=== PATIENT | male | born 1975 | race Caucasian/White ===

== ENCOUNTER 2017-12-11 07:28 | Inpatient (IN) | payer MEDICAID ==
[2017-12-11] MEDS ORDERED: Sodium Chloride 0.9% 1,000 ML IV ONE ×2 (08:02→09:53)
[2017-12-11] MEDS ORDERED: Sodium Chloride 0.9% 1,000 ML ONE ×2 (08:18→09:55)
[2017-12-11 08:26] LABS: BASO # 0.1 K/uL (0.0-0.2); BASO % 2.1 % (0.0-2.0); EOS % 0.5 % (0.0-4.0); HEMOGLOBIN 8.3 g/dL (12.0-18.0); LYMPH % 22.7 % (20.0-40.0); MEAN CELL VOLUME 87.9 fL (80.0-94.0); MEAN CORPUSCULAR HEMOGLOBIN 30.6 pg (27.0-31.0); MEAN CORPUSCULAR HGB CONC 34.9 g/dL (33.0-37.0); MEAN PLATELET VOLUME 8.8 fL (7.2-11.7); MONO # 0.4 K/uL (0.0-0.8); MONO % 8.2 % (0.0-10.0); NEUT # 2.9 K/uL (1.8-7.0); NEUT % 66.5 % (50.0-75.0); NRBC % 0.1 % (0.0-2.0); RBC 2.7 Mil/uL (4.40-5.90); WHITE BLOOD COUNT 4.4 K/uL (4.8-10.8)
[2017-12-11 08:34] LABS: ALB/GLOB RATIO 0.7 (1.0-2.1); ALBUMIN 2.7 g/dL (3.5-5.0); ALT/SGPT 62 U/L (21-72); AST/SGOT 235 U/L (17-59); BLOOD UREA NITROGEN 11 mg/dL (9-20); CALCIUM 7.6 mg/dl (8.6-10.4); GFR AFRICAN-AMERICAN > 60; GFR NON-AFRICAN AMERICAN > 60; LIPASE 249 U/L (23-300)
[2017-12-11 08:35] LABS: INR 3.3
--- NOTE | 2017-12-11 09:04 | C.PDOC ---
History Of Present Illness 42 y/o male presents to ED for evaluation of 5 episodes of vomiting, notes having blood in his vomit. He also reports dark stool. Pt states he was recently admitted at [facility] for gallstones. Pt states he was instructed not to drink alcohol but admits to still drinking. Denies fever, chest pain, shortness of breath, or other complaints. Time Seen by Provider: 12/11/17 07:31 Chief Complaint (Nursing): GI Problem History Per: Patient History/Exam Limitations: no limitations Past Medical History Reviewed: Historical Data, Nursing Documentation, Vital Signs Vital Signs: Last Vital Signs Temp 97.9 F 12/11/17 13:24 Pulse 78 12/11/17 15:30 Resp 12 12/11/17 15:30 BP 101/58 L 12/11/17 15:30 Pulse Ox 99 12/11/17 15:30 Family History: States: Unknown Family Hx - Social History Hx Alcohol Use: Yes Hx Substance Use: No - Immunization History Hx Tetanus Toxoid Vaccination: No Hx Influenza Vaccination: Yes Hx Pneumococcal Vaccination: Yes Review Of Systems Except As Marked, All Systems Reviewed And Found Negative. Constitutional: Negative for: Fever, Chills Cardiovascular: Negative for: Chest Pain Respiratory: Negative for: Shortness of Breath Gastrointestinal: Positive for: Nausea, Vomiting, Melena, Hematemesis Physical Exam - Physical Exam Appears: Non-toxic, No Acute Distress Skin: Normal Color, Warm, Dry Head: Atraumatic, Normacephalic Eye(s): bilateral: Normal Inspection Oral Mucosa: Moist Throat: Normal Cardiovascular: Rhythm Regular Respiratory: Normal Breath Sounds, No Rales, No Rhonchi, No Wheezing Gastrointestinal/Abdominal: Soft, No Tenderness, No Guarding, No Rebound Rectal: Heme Positive, Other (brown stool) Extremity: Normal ROM Neurological/Psych: Oriented x3, Normal Speech Gait: Steady ED Course And Treatment - Laboratory Results Result Diagrams: 12/11/17 08:12 12/11/17 08:12 Lab Interpretation: Abnormal ECG: Interpreted By Me ECG Rhythm: Sinus Rhythm, Nonspecific Changes ECG Interpretation: No Acute Changes Rate From EC O2 Sat by Pulse Oximetry: 98 Pulse Ox Interpretation: Normal - Radiology CXR: Interpreted by Me CXR Interpretation: Yes: No Acute Disease Progress Note: Treated with IVF NSS x 2 liters and zofran. Protonic drip and bolus. Case discussed with Dr Landrum who agrees to admit. Case discussed with Dr Max Merlos (GI) who request ICU admission and ocreotide bolus and drip. Treated with additional zofran. Vomit moderate amounts of dark burgandy colored fluid. Partient evaluated by Dr Cortés and agrees to ICU admission Reassessment Condition: Unchanged - Physician Consult Information Physician Contacted: Gabriel Landrum Outcome Of Conversation: admit Medical Decision Making Medical Decision Making: Plan: Blood work Urinalysis Zofran, Protonix, IV fluids Disposition Discussed With Dr.: Gabriel Landrum Doctor Will See Patient In The: Hospital - Disposition Disposition: HOSPITALIZED Disposition Time: 11:00 Condition: GUARDED - POA Present On Arrival: None - Clinical Impression Clinical Impression: Gastrointestinal hemorrhage, Esophageal varices, Acute GI bleeding - PA / LITERARY WRITER / Resident Statement MD/DO has reviewed & agrees with the documentation as recorded. - Scribe Statement The provider has reviewed the documentation as recorded by the Scribe KP All medical record entries made by the Scribe were at my direction and personally dictated by me. I have reviewed the chart and agree that the record accurately reflects my personal performance of the history, physical exam, medical decision making, and the department course for this patient. I have also personally directed, reviewed, and agree with the discharge instructions and disposition. Decision To Admit - Pt Status Changed To: Hospital Disposition Of: Inpatient - Admit Certification Admit to Inpatient:: After my assessment, the patient will require hospitalization for at least two midnights. This is because of the severity of symptoms shown, intensity of services needed, and/or the medical risk in this patient being treated as an outpatient. - InPatient: Physician Admission Certification: I certify that this patient requires 2 or more midnights of care for the following reason:: Esophageal varicies. GI Bleeding - . Bed Request Type: ICU Admitting Physician: Gabriel Landrum Patient Diagnosis: Gastrointestinal hemorrhage, Esophageal varices, Acute GI bleeding
[2017-12-11] MEDS ORDERED: Pantoprazole 80 MG in Sodium Chloride 0.9% 100 ML IVP SCH (09:30)
[2017-12-11] MEDS: Pantoprazole 80 MG in Sodium Chloride 0.9% 100 ML IVPB SCH ×2 (09:40→18:00)
[2017-12-11 09:49] LABS: SQUAMOUS EPITHIAL 2 /hpf (0-5); URINE BILIRUBIN NEGATIVE (NEGATIVE); URINE BLOOD NEGATIVE (NEGATIVE); URINE CLARITY Clear (Clear); URINE COLOR Amber (YELLOW); URINE GLUCOSE (UA) NORMAL (Normal); URINE LEUKOCYTE ESTERASE NEG Leu/uL (Negative); URINE PROTEIN NEGATIVE (NEGATIVE)
[2017-12-11] MEDS ORDERED: Octreotide 1,250 MCG in Dextrose 5% In Water 250 ML SC SCH (10:45)
[2017-12-11] MEDS ORDERED: Octreotide 1,250 MCG in Dextrose 5% In Water 250 ML IV SCH ×2 (11:00→17:00)
--- NOTE | 2017-12-11 12:03 | CP.PCM.CON ---
History of Present Illness - History of Present Illness History of Present Illness: COVERING DR PADRON 42 yo male with known h/o alcoholic cirrhoses, S/P variceal bleeding with banding in [place] 08/2017, recently discharged from [facility] [place] with gallstones and likely passage of CBD stone. He is admitted with acute onset of 7-8 episodes of emesis of clots and dark blood this morning with five grossly tarry bowel movements as well. Addmits to drinking vodka 5-6 shots in Gatorade last night. Told in [place] he needs to stop drinking. Denies IVDA, hepatitis. hgb-8.3 in ED. Stool grossly maroon and heme +. Review of Systems - Cardiovascular Cardiovascular: absent: Chest Pain, Dyspnea - Respiratory Respiratory: absent: Cough, Stridor - Gastrointestinal Gastrointestinal: As Per HPI, Hematemesis, Hematochezia, Melena, Vomiting. absent: Abdominal Pain Past Patient History - Past Social History Smoking Status: Heavy Smoker > 10 Cigarettes Daily Alcohol: > 2 Drinks/Day Drugs: Denies - CARDIAC Hx Cardiac Disorders: No - PULMONARY Hx Respiratory Disorders: No - NEUROLOGICAL Hx Neurological Disorder: No - RENAL Hx Chronic Kidney Disease: No - ENDOCRINE/METABOLIC Hx Endocrine Disorders: No - HEMATOLOGICAL/ONCOLOGICAL Hx Cirrhosis: Yes Hx Hepatitis A: No Hx Hepatitis B: No Hx Hepatitis C: No Hx Human Immunodeficiency Virus (HIV): No - MUSCULOSKELETAL/RHEUMATOLOGICAL Hx Musculoskeletal Disorders: No - GASTROINTESTINAL Hx Esophageal Varices: Yes Hx Gall Bladder Disease: Yes Hx Gastritis: Yes - PSYCHIATRIC Hx Psychophysiologic Disorder: Yes Hx Substance Use: No Other/Comment: //alcohol abuse - SURGICAL HISTORY Hx Surgeries: Yes Hx Herniorrhaphy: Yes Other/Comment: umbilical hernia repair - ANESTHESIA Hx Anesthesia: No Hx Anesthesia Reactions: No Meds Allergies/Adverse Reactions: Allergies Allergy/AdvReac Type Severity Reaction Status Date / Time No Known Allergies Allergy Unverified 12/11/17 07:33 - Medications Medications: Current Medications Pantoprazole Sodium 80 mg/ (Sodium Chloride) 100 mls @ 10 mls/hr IVPB .Q10H MIKI PRN Reason: 8 MG/HR Last Admin: 12/11/17 09:40 Dose: 10 mls/hr Octreotide Acetate 1,250 mcg/ (Dextrose) 252.5 mls @ 5.05 mls/hr IV .Q24H MIKI; 25 MCG/HR PRN Reason: Protocol Last Admin: 12/11/17 11:21 Dose: 5.05 mls/hr Physical Exam - Constitutional Appears: No Acute Distress - Head Exam Head Exam: ATRAUMATIC, NORMOCEPHALIC - Eye Exam Eye Exam: EOMI, PERRL - Respiratory Exam Respiratory Exam: NORMAL BREATHING PATTERN - Cardiovascular Exam Cardiovascular Exam: REGULAR RHYTHM - GI/Abdominal Exam GI & Abdominal Exam: Hyperactive Bowel Sounds, Organomegaly, Soft. absent: Mass , Rebound, Rigid, Tenderness - Rectal Exam Rectal Exam: Bloody Stool - Extremities Exam Extremities exam: Positive for: normal inspection - Neurological Exam Neurological exam: Alert, Oriented x3 - Psychiatric Exam Psychiatric exam: Normal Affect, Normal Mood - Skin Skin Exam: Dry, Warm Results - Vital Signs Recent Vital Signs: Last Vital Signs Temp 98.8 F 12/11/17 07:32 Pulse 81 12/11/17 11:15 Resp 20 12/11/17 11:15 BP 104/57 L 12/11/17 11:15 Pulse Ox 99 12/11/17 11:15 - Labs Result Diagrams: 12/11/17 08:12 12/11/17 08:12 Labs: Laboratory Results - last 24 hr 12/11/17 12/11/17 12/11/17 08:12 08:12 08:12 WBC 4.4 L RBC 2.70 L Hgb 8.3 L Hct 23.7 L MCV 87.9 MCH 30.6 MCHC 34.9 RDW 22.0 H Plt Count 53 L MPV 8.8 Neut % (Auto) 66.5 Lymph % (Auto) 22.7 [place] % (Auto) 8.2 Eos % (Auto) 0.5 Baso % (Auto) 2.1 H Neut # (Auto) 2.9 Lymph # (Auto) 1.0 [place] # (Auto) 0.4 Eos # (Auto) 0.0 Baso # (Auto) 0.1 Differential Comment PT 36.0 H* INR 3.3 Sodium 137 Potassium 4.1 Chloride 101 Carbon Dioxide 30 Anion Gap 11 BUN 11 Creatinine 0.5 L Est GFR ( Amer) > 60 Est GFR (Non-Af Amer) > 60 Random Glucose 111 H Calcium 7.6 L Total Bilirubin 6.5 H AST 235 H ALT 62 Alkaline Phosphatase 95 Ammonia Total Protein 6.4 Albumin 2.7 L Globulin 3.7 Albumin/Globulin Ratio 0.7 L Lipase 249 Urine Color Urine Clarity Urine pH Ur Specific [place] Urine Protein Urine Glucose (UA) Urine Ketones Urine Blood Urine Nitrate Urine Bilirubin Urine Urobilinogen Ur Leukocyte Esterase Urine WBC (Auto) Urine RBC (Auto) Ur Squamous Epith Cells Blood Type Antibody Screen 12/11/17 12/11/17 12/11/17 09:34 09:45 11:32 WBC RBC Hgb Hct MCV MCH MCHC RDW Plt Count MPV Neut % (Auto) Lymph % (Auto) [place] % (Auto) Eos % (Auto) Baso % (Auto) Neut # (Auto) Lymph # (Auto) [place] # (Auto) Eos # (Auto) Baso # (Auto) Differential Comment PT INR Sodium Potassium Chloride Carbon Dioxide Anion Gap BUN Creatinine Est GFR ( Amer) Est GFR (Non-Af Amer) Random Glucose Calcium Total Bilirubin AST ALT Alkaline Phosphatase Ammonia 95 H Total Protein Albumin Globulin Albumin/Globulin Ratio Lipase Urine Color Leslie Urine Clarity Clear Urine pH 7.0 Ur Specific [place] 1.015 Urine Protein Negative Urine Glucose (UA) Normal Urine Ketones Negative Urine Blood Negative Urine Nitrate Negative Urine Bilirubin Negative Urine Urobilinogen 4.0 Ur Leukocyte Esterase Neg Urine WBC (Auto) 2 Urine RBC (Auto) 1 Ur Squamous Epith Cells 2 Blood Type O POSITIVE Antibody Screen Negative Assessment & Plan (1) Acute GI bleeding Assessment and Plan: Gi bleeding likely due to alcoholic gastritis/gastropathy vs recurrent variceal bleeding due to recent alcohol binge. IV Protonix and Octreotide ordered via PA in ED. (Octreotide was d/c's by someone against my advisement) Admit to ICU for close monitoring. Plan for emergent EGD and banding if needed. Vitamin K and watch platelets. Case discussed with Dr Cortés the ICU attending in his office directly. Status: Acute Priority: High (2) Alcoholic cirrhosis Assessment and Plan: As above, Check viral markers and AFP Watch for DT's Status: Chronic Priority: High (3) Esophageal varices Assessment and Plan: For urgent EGD to be done when OR team is available. Status: Acute Priority: High (4) Acute blood loss anemia Assessment and Plan: as above Status: Acute Priority: High
[2017-12-11] MEDS ORDERED: Midazolam 2 MG/2 ML VIAL ONE (12:46)
[2017-12-11] MEDS ORDERED: Propofol 10 mg/ml Inj (20 ML) ONE (12:46)
[2017-12-11] MEDS ORDERED: Lactated Ringer's 1,000 ML IV ONE (13:24)
[2017-12-11] MEDS ORDERED: Sodium Chloride 0.9% 500 ML IV ONE (14:30)
--- NOTE | 2017-12-11 15:18 | CP.PCM.CON ---
History of Present Illness - History of Present Illness History of Present Illness: 42 y/o male with pmx of liver cirrhosis was recently let [facility] presents to [facility] afterdrinking vodka with some OJ and throwing up bloody vomitus. Patient has long history of liver failure, multiple EGD and was prescribed on "two diuretics" -- which patient claims he does not take. Patient stated " I am am [place]" for drinking alcohol as multiple previous physicians have advised against drinking aocohol. ROS: (+)blood vomitus, all other systems negative Review of Systems - Review of Systems Review of Systems: see hpi Past Patient History - Past Social History Smoking Status: Heavy Smoker > 10 Cigarettes Daily Alcohol: > 2 Drinks/Day Drugs: Denies - CARDIAC Hx Cardiac Disorders: No - PULMONARY Hx Respiratory Disorders: No - NEUROLOGICAL Hx Neurological Disorder: No - RENAL Hx Chronic Kidney Disease: No - ENDOCRINE/METABOLIC Hx Endocrine Disorders: No - HEMATOLOGICAL/ONCOLOGICAL Hx Cirrhosis: Yes Hx Hepatitis A: No Hx Hepatitis B: No Hx Hepatitis C: No Hx Human Immunodeficiency Virus (HIV): No - MUSCULOSKELETAL/RHEUMATOLOGICAL Hx Musculoskeletal Disorders: No - GASTROINTESTINAL Hx Esophageal Varices: Yes Hx Gall Bladder Disease: Yes Hx Gastritis: Yes - PSYCHIATRIC Hx Substance Use: No - SURGICAL HISTORY Hx Surgeries: Yes Hx Herniorrhaphy: Yes Other/Comment: umbilical hernia repair - ANESTHESIA Hx Anesthesia: No Hx Anesthesia Reactions: No Meds Allergies/Adverse Reactions: Allergies Allergy/AdvReac Type Severity Reaction Status Date / Time No Known Allergies Allergy Unverified 12/11/17 07:33 - Medications Medications: Current Medications Chlordiazepoxide (Librium) 25 mg PO Q4 PRN PRN Reason: Anxiety Pantoprazole Sodium 80 mg/ (Sodium Chloride) 100 mls @ 10 mls/hr IVPB .Q10H MIKI PRN Reason: 8 MG/HR Last Admin: 12/11/17 09:40 Dose: 10 mls/hr Octreotide Acetate 1,250 mcg/ (Dextrose) 252.5 mls @ 5.05 mls/hr IV .Q24H MIKI; 25 MCG/HR PRN Reason: Protocol Last Admin: 12/11/17 11:21 Dose: 5.05 mls/hr Octreotide Acetate 1,250 mcg/ (Sodium Chloride) 252.5 mls @ 5.05 mls/hr IV .Q24H MIKI; 25 MCG/HR PRN Reason: Protocol Stop: 12/14/17 12:16 Phytonadione (Vitamin K Inj) 10 mg SC DAILY MIKI Stop: 12/13/17 10:01 Physical Exam - Head Exam Head Exam: ATRAUMATIC, NORMAL INSPECTION, NORMOCEPHALIC - Eye Exam Eye Exam: Scleral icterus - Respiratory Exam Respiratory Exam: NORMAL BREATHING PATTERN - Cardiovascular Exam Cardiovascular Exam: REGULAR RHYTHM, +S1, +S2 - GI/Abdominal Exam GI & Abdominal Exam: Normal Bowel Sounds, Organomegaly, Soft. absent: Guarding , Rebound, Rigid - Extremities Exam Extremities exam: Positive for: normal inspection, pedal edema Results - Vital Signs Recent Vital Signs: Last Vital Signs Temp 97.9 F 12/11/17 13:24 Pulse 78 12/11/17 13:24 Resp 14 12/11/17 13:24 BP 107/57 L 12/11/17 13:24 Pulse Ox 98 12/11/17 13:41 - Labs Result Diagrams: 12/12/17 06:26 12/12/17 06:26 Labs: Laboratory Results - last 24 hr 12/11/17 12/11/17 12/11/17 08:12 08:12 08:12 WBC 4.4 L RBC 2.70 L Hgb 8.3 L Hct 23.7 L MCV 87.9 MCH 30.6 MCHC 34.9 RDW 22.0 H Plt Count 53 L MPV 8.8 Neut % (Auto) 66.5 Lymph % (Auto) 22.7 [place] % (Auto) 8.2 Eos % (Auto) 0.5 Baso % (Auto) 2.1 H Neut # (Auto) 2.9 Lymph # (Auto) 1.0 [place] # (Auto) 0.4 Eos # (Auto) 0.0 Baso # (Auto) 0.1 Differential Comment PT 36.0 H* INR 3.3 Sodium 137 Potassium 4.1 Chloride 101 Carbon Dioxide 30 Anion Gap 11 BUN 11 Creatinine 0.5 L Est GFR ( Amer) > 60 Est GFR (Non-Af Amer) > 60 Random Glucose 111 H Calcium 7.6 L Total Bilirubin 6.5 H AST 235 H ALT 62 Alkaline Phosphatase 95 Ammonia Total Protein 6.4 Albumin 2.7 L Globulin 3.7 Albumin/Globulin Ratio 0.7 L Lipase 249 Urine Color Urine Clarity Urine pH Ur Specific [place] Urine Protein Urine Glucose (UA) Urine Ketones Urine Blood Urine Nitrate Urine Bilirubin Urine Urobilinogen Ur Leukocyte Esterase Urine WBC (Auto) Urine RBC (Auto) Ur Squamous Epith Cells Blood Type Antibody Screen 12/11/17 12/11/17 12/11/17 09:34 09:45 11:32 WBC RBC Hgb Hct MCV MCH MCHC RDW Plt Count MPV Neut % (Auto) Lymph % (Auto) [place] % (Auto) Eos % (Auto) Baso % (Auto) Neut # (Auto) Lymph # (Auto) [place] # (Auto) Eos # (Auto) Baso # (Auto) Differential Comment PT INR Sodium Potassium Chloride Carbon Dioxide Anion Gap BUN Creatinine Est GFR ( Amer) Est GFR (Non-Af Amer) Random Glucose Calcium Total Bilirubin AST ALT Alkaline Phosphatase Ammonia 95 H Total Protein Albumin Globulin Albumin/Globulin Ratio Lipase Urine Color Leslie Urine Clarity Clear Urine pH 7.0 Ur Specific [place] 1.015 Urine Protein Negative Urine Glucose (UA) Normal Urine Ketones Negative Urine Blood Negative Urine Nitrate Negative Urine Bilirubin Negative Urine Urobilinogen 4.0 Ur Leukocyte Esterase Neg Urine WBC (Auto) 2 Urine RBC (Auto) 1 Ur Squamous Epith Cells 2 Blood Type O POSITIVE Antibody Screen Negative Assessment & Plan - Assessment and Plan (Free Text) Assessment: -POssible gastic ulcer with upper GI bleed: patient remains hemodynamically stable -contine IV ppi and octrotide -NPO -dvt ppx scds -pud rx protonix -PAtient remains hemodynamically stable. 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 Patient needs to restrain from ETOH for at least 6 months. - Date & Time Date: 12/11/17 Time: 16:55
[2017-12-11] MEDS ORDERED: Phytonadione 10 mg/ml Inj (Adult) IV SCH (17:00)
[2017-12-11] MEDS ORDERED: Phytonadione 10 mg/ml Inj (Adult) SC SCH (18:00)
[2017-12-11] MEDS: Phytonadione 10 MG in Sodium Chloride 0.9% 50 ML IV SCH (18:35)
[2017-12-11] MEDS ORDERED: Dextrose 5%/Lactated Ringer's 1,000 ML IV SCH (19:00)
[2017-12-11] MEDS ORDERED: Lactated Ringer's 1,000 ML IV SCH (19:15)
--- NOTE | 2017-12-11 21:48 | RAD ---
Date of service: 12/11/2017 PROCEDURE: CHEST RADIOGRAPH, 1 VIEW HISTORY: SOB COMPARISON: None available. FINDINGS: LUNGS: Small opacities at the lung bases larger on the left may represent atelectasis. PLEURA: No pneumothorax or pleural fluid seen. CARDIOVASCULAR: Normal. OSSEOUS STRUCTURES: Age indeterminate right ribs fracture noted. VISUALIZED UPPER ABDOMEN: Normal. OTHER FINDINGS: None. IMPRESSION: Small opacities at the lung bases may represent atelectasis. Right ribs fracture indeterminate age.
[2017-12-11 22:07] LABS: HEMOGLOBIN 8.3 g/dL (12.0-18.0); MEAN CELL VOLUME 89.2 fL (80.0-94.0); MEAN CORPUSCULAR HEMOGLOBIN 30.2 pg (27.0-31.0); MEAN CORPUSCULAR HGB CONC 33.9 g/dL (33.0-37.0); MEAN PLATELET VOLUME 8.4 fL (7.2-11.7); RBC 2.76 Mil/uL (4.40-5.90); RED CELL DISTRIBUTION WIDTH 21.6 % (11.5-14.5); WHITE BLOOD COUNT 4.1 K/uL (4.8-10.8)
[2017-12-12] MEDS: Pantoprazole 80 MG in Sodium Chloride 0.9% 100 ML IVPB SCH (04:30)
[2017-12-12 06:57] LABS: ALB/GLOB RATIO 0.7 (1.0-2.1); ALBUMIN 2.5 g/dL (3.5-5.0); ALT/SGPT 56 U/L (21-72); AST/SGOT 185 U/L (17-59); BLOOD UREA NITROGEN 12 mg/dL (9-20); CALCIUM 7.6 mg/dl (8.6-10.4); GFR AFRICAN-AMERICAN > 60; GFR NON-AFRICAN AMERICAN > 60
[2017-12-12 06:59] LABS: BASO # 0.1 K/uL (0.0-0.2); EOS # 0.1 K/uL (0.0-0.7); EOS % 2.9 % (0.0-4.0); HEMOGLOBIN 8.8 g/dL (12.0-18.0); LYMPH # 1.3 K/uL (1.0-4.3); LYMPH % 31.6 % (20.0-40.0); MEAN CELL VOLUME 89.6 fL (80.0-94.0); MEAN CORPUSCULAR HEMOGLOBIN 30.3 pg (27.0-31.0); MEAN CORPUSCULAR HGB CONC 33.8 g/dL (33.0-37.0); MEAN PLATELET VOLUME 8.9 fL (7.2-11.7); MONO # 0.3 K/uL (0.0-0.8); MONO % 8.1 % (0.0-10.0); NEUT # 2.3 K/uL (1.8-7.0); NEUT % 55.4 % (50.0-75.0); NRBC % 0.3 % (0.0-2.0); RBC 2.9 Mil/uL (4.40-5.90); RED CELL DISTRIBUTION WIDTH 21.6 % (11.5-14.5); WHITE BLOOD COUNT 4.1 K/uL (4.8-10.8)
[2017-12-12] MEDS: Magnesium Sulfate 1 gm in D5W 1 GM/100 ML BAG IVPB SCH ×2 (07:53→08:55)
--- NOTE | 2017-12-12 13:14 | CP.PCM.PN ---
Subjective - Date & Time of Evaluation Date of Evaluation: 12/12/17 Time of Evaluation: 13:11 - Subjective Subjective: ICU FOLLOW UP NOTE POST BLEED Patient with dark stool this pm. No pain, N/V. Hgb stable. Awake and alert Worried about dog left home alone in his apartment. Objective - Vital Signs/Intake and Output Vital Signs (last 24 hours): Temp Pulse Resp BP Pulse Ox 98.4 F 71 11 L 118/69 97 12/11/17 17:50 12/12/17 11:00 12/12/17 11:00 12/12/17 10:48 12/12/17 11:00 Intake and Output: 12/12/17 12/12/17 06:59 18:59 Intake Total 775 220 Output Total 1400 Balance -625 220 - Medications Medications: Current Medications Chlordiazepoxide (Librium) 25 mg PO Q4 PRN PRN Reason: Anxiety Last Admin: 12/12/17 11:30 Dose: 25 mg Octreotide Acetate 1,250 mcg/ (Dextrose) 252.5 mls @ 5.05 mls/hr IV .Q24H MIKI; 25 MCG/HR PRN Reason: Protocol Stop: 12/14/17 12:16 Last Admin: 12/11/17 17:00 Dose: Not Given Phytonadione 10 mg/ Sodium (Chloride) 51 mls @ 204 mls/hr IV Q24H MIKI Last Admin: 12/11/17 18:35 Dose: 204 mls/hr Lactated Ringer's (Lactated Ringer's) 1,000 mls @ 40 mls/hr IV .Q24H MIKI Last Admin: 12/11/17 21:36 Dose: 40 mls/hr Pantoprazole Sodium (Protonix Ec Tab) 40 mg PO DAILY MIKI Propranolol HCl (Inderal) 10 mg PO TID MIKI - Labs Labs: 12/12/17 06:26 12/12/17 06:26 PT 36.0 SECONDS (9.7-12.2) H* 12/11/17 08:12 INR 3.3 12/11/17 08:12 - Constitutional Appears: No Acute Distress - Head Exam Head Exam: ATRAUMATIC, NORMOCEPHALIC - Eye Exam Eye Exam: Scleral icterus - Respiratory Exam Respiratory Exam: NORMAL BREATHING PATTERN - Cardiovascular Exam Cardiovascular Exam: REGULAR RHYTHM, +S1 - GI/Abdominal Exam GI & Abdominal Exam: Soft, Normal Bowel Sounds, Organomegaly. absent: Guarding , Tenderness, Mass, Rebound - Extremities Exam Extremities Exam: Normal Inspection Assessment and Plan (1) Acute GI bleeding Assessment & Plan: Bleeding appeared to be due to erosive esophagitis and not from portal hypertension. On IV Protonix and will switch to po today. Advance diet as tolerated. Taper Octreotide to D/C per protocol. Status: Acute (2) Alcoholic cirrhosis Assessment & Plan: Alcohol counseling or outpatient AA needed. Abstinence needed for long and short term prognosis/mortality risk. Status: Chronic (3) Esophageal varices Assessment & Plan: Not size to be bandable. Will begin Beta blockers. Ultrasound ordered to assess liver, ascites and presence of other portal hypertension. Status: Acute (4) Acute blood loss anemia Assessment & Plan: Stable at present. Monitor for rebleeding. Status: Acute
[2017-12-12] MEDS: Pantoprazole 40 mg EC Tab PO SCH (13:26)
--- NOTE | 2017-12-12 13:35 | US ---
Date of service: 12/12/2017 HISTORY: liver cirrhosis COMPARISON: None. TECHNIQUE: Sonographic evaluation of the abdomen. FINDINGS: LIVER: Measures 21.28 cm. Increased echogenicity of the liver with nodular contour and nodular echotexture. No mass. No intrahepatic bile duct dilatation. GALLBLADDER: Multiple gallstones are noted. There is mild gallbladder wall thickening measures up to 4.7 millimeter. There is also pericholecystic fluid COMMON BILE DUCT: Measures 5.4 mm. No stones. No dilatation. PANCREAS: Unremarkable as visualized. No mass. No ductal dilatation. RIGHT KIDNEY: Measures 12.9 x 5.1 x 4.9cm. Normal echogenicity. No calculus, mass, or hydronephrosis. LEFT KIDNEY: Measures 14.4 x 5.25 x 5.8cm. Normal echogenicity. No calculus, mass, or hydronephrosis. SPLEEN: Enlarged spleen measures up to 1 centimeter AORTA: No aneurysmal dilatation. IVC: Unremarkable. OTHER FINDINGS: None. IMPRESSION: Enlarged heterogeneous liver with nodular appearance. Multiple gallstones with diffuse gallbladder wall thickening and trace pericholecystic fluid. Splenomegaly.
--- NOTE | 2017-12-12 14:38 | CP.PCM.PN ---
Subjective - Date & Time of Evaluation Date of Evaluation: 12/12/17 Time of Evaluation: 14:35 - Subjective Subjective: Patient seen and examined at bedside. Patient had no acute events overnight. Only one BM, denies any nausea/vomitting Objective - Vital Signs/Intake and Output Vital Signs (last 24 hours): Temp Pulse Resp BP Pulse Ox 98 F 76 11 L 101/66 99 12/12/17 13:00 12/12/17 13:00 12/12/17 13:00 12/12/17 13:00 12/12/17 13:00 Intake and Output: 12/12/17 12/12/17 06:59 18:59 Intake Total 775 325.0 Output Total 1400 350 Balance -625 -25.0 - Medications Medications: Current Medications Chlordiazepoxide (Librium) 25 mg PO Q4 PRN PRN Reason: Anxiety Last Admin: 12/12/17 11:30 Dose: 25 mg Phytonadione 10 mg/ Sodium (Chloride) 51 mls @ 204 mls/hr IV Q24H [facility] Last Admin: 12/11/17 18:35 Dose: 204 mls/hr Pantoprazole Sodium (Protonix Ec Tab) 40 mg PO DAILY [facility] Last Admin: 12/12/17 13:26 Dose: 40 mg Propranolol HCl (Inderal) 10 mg PO TID [facility] - Labs Labs: 12/12/17 06:26 12/12/17 06:26 PT 36.0 SECONDS (9.7-12.2) H* 12/11/17 08:12 INR 3.3 12/11/17 08:12 - Head Exam Head Exam: ATRAUMATIC, NORMAL INSPECTION, NORMOCEPHALIC - Eye Exam Pupil Exam: NORMAL ACCOMODATION - ENT Exam ENT Exam: Normal Exam - Neck Exam Neck Exam: Normal Inspection - Respiratory Exam Respiratory Exam: Clear to Ausculation Bilateral, NORMAL BREATHING PATTERN - Cardiovascular Exam Cardiovascular Exam: REGULAR RHYTHM, +S1, +S2, +S4 - GI/Abdominal Exam GI & Abdominal Exam: Normal Bowel Sounds - Extremities Exam Extremities Exam: Full ROM, Normal Inspection - Neurological Exam Neurological Exam: Alert, Awake, CN II-XII Intact, Oriented x3 - Skin Skin Exam: Normal Color Assessment and Plan - Assessment and Plan (Free Text) Assessment: Patient with h/o chronic liver disease who presents to [facility] [place] with upper gastrointestinal bleding. -EGD reveals clean based ulcers -contine IV ppi q12 -GI advised to advance diet -dvt ppx scds -pud rx protonix -PAtient remains hemodynamically stable. 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 -contineu treatment as per GI Dr. Bar
[2017-12-12] MEDS: Phytonadione 10 MG in Sodium Chloride 0.9% 50 ML IV SCH (18:17)
--- NOTE | 2017-12-12 22:16 | CP.PCM.PN ---
Subjective - Date & Time of Evaluation Date of Evaluation: 12/12/17 Time of Evaluation: 19:00 - Subjective Subjective: Patient seen and examined at bedside. Patient had no acute events overnight. Only one BM, denies any nausea/vomitting Objective - Vital Signs/Intake and Output Vital Signs (last 24 hours): Temp Pulse Resp BP Pulse Ox 98.3 F 85 12 96/52 L 96 12/12/17 20:00 12/12/17 22:10 12/12/17 22:00 12/12/17 20:00 12/12/17 22:00 Intake and Output: 12/12/17 12/13/17 18:59 06:59 Intake Total 1582.5 Output Total 1250 Balance 332.5 - Medications Medications: Current Medications Chlordiazepoxide (Librium) 25 mg PO Q4 PRN PRN Reason: Anxiety Last Admin: 12/12/17 20:39 Dose: 25 mg Phytonadione 10 mg/ Sodium (Chloride) 51 mls @ 204 mls/hr IV Q24H [facility] Last Admin: 12/12/17 18:17 Dose: 204 mls/hr Pantoprazole Sodium (Protonix Ec Tab) 40 mg PO DAILY [facility] Last Admin: 12/12/17 13:26 Dose: 40 mg Propranolol HCl (Inderal) 10 mg PO TID [facility] Last Admin: 12/12/17 18:17 Dose: 10 mg - Labs Labs: 12/12/17 06:26 12/12/17 06:26 PT 36.0 SECONDS (9.7-12.2) H* 12/11/17 08:12 INR 3.3 12/11/17 08:12
--- NOTE | 2017-12-12 22:16 | CP.PCM.HP ---
History of Present Illness - History of Present Illness History of Present Illness: 42 yo male with known h/o alcoholic cirrhoses, S/P variceal bleeding with banding in [place] 08/2017, [place] [facility] [place] and likely passage of CBD stone. He is admitted with acute onset of 7-8 episodes of emesis of clots and dark blood this morning with five grossly tarry bowel movements as well. Addmits to drinking vodka 5-6 shots in Gatorade last night. Told in [place] he needs to stop drinking. Denies IVDA, hepatitis. hgb-8.3 in ED. Stool grossly maroon and heme +. Past Patient History - Past Medical History & Family History Past Medical History?: Yes - Past Social History Smoking Status: Heavy Smoker > 10 Cigarettes Daily Alcohol: > 2 Drinks/Day Drugs: Denies - CARDIAC Hx Cardiac Disorders: No - PULMONARY Hx Respiratory Disorders: No - NEUROLOGICAL Hx Neurological Disorder: No - HEENT Hx HEENT Problems: Yes Other/Comment: eye sight getting blurry, need to be checked - RENAL Hx Chronic Kidney Disease: No - ENDOCRINE/METABOLIC Hx Endocrine Disorders: No - HEMATOLOGICAL/ONCOLOGICAL Hx Cirrhosis: Yes Hx Hepatitis A: No Hx Hepatitis B: No Hx Hepatitis C: No Hx Human Immunodeficiency Virus (HIV): No - INTEGUMENTARY Hx Dermatological Problems: No - MUSCULOSKELETAL/RHEUMATOLOGICAL Hx Musculoskeletal Disorders: No - GASTROINTESTINAL Hx Esophageal Varices: Yes Hx Gall Bladder Disease: Yes Hx Gastritis: Yes - GENITOURINARY/GYNECOLOGICAL Hx Genitourinary Disorders: No - PSYCHIATRIC Hx Substance Use: No - SURGICAL HISTORY Hx Surgeries: Yes Hx Herniorrhaphy: Yes Other/Comment: umbilical hernia repair - ANESTHESIA Hx Anesthesia: No Hx Anesthesia Reactions: No Meds Allergies/Adverse Reactions: Allergies Allergy/AdvReac Type Severity Reaction Status Date / Time No Known Allergies Allergy Unverified 12/11/17 07:33 Results - Vital Signs Recent Vital Signs: Last Vital Signs Temp 98.3 F 12/12/17 20:00 Pulse 85 12/12/17 22:10 Resp 12 12/12/17 22:00 BP 96/52 L 12/12/17 20:00 Pulse Ox 96 12/12/17 22:00 - Labs Result Diagrams: 12/12/17 06:26 12/12/17 06:26 Labs: Laboratory Results - last 24 hr 12/12/17 12/12/17 12/12/17 06:26 06:26 06:26 WBC 4.1 L RBC 2.90 L Hgb 8.8 L Hct 26.0 L MCV 89.6 MCH 30.3 MCHC 33.8 RDW 21.6 H Plt Count 50 L MPV 8.9 Neut % (Auto) 55.4 Lymph % (Auto) 31.6 [place] % (Auto) 8.1 Eos % (Auto) 2.9 Baso % (Auto) 2.0 Neut # (Auto) 2.3 Lymph # (Auto) 1.3 [place] # (Auto) 0.3 Eos # (Auto) 0.1 Baso # (Auto) 0.1 Sodium 137 Potassium 3.8 Chloride 104 Carbon Dioxide 28 Anion Gap 9 L BUN 12 Creatinine 0.6 L Est GFR ( Amer) > 60 Est GFR (Non-Af Amer) > 60 Random Glucose 101 Calcium 7.6 L Phosphorus 2.6 Magnesium 1.5 L Total Bilirubin 10.3 H AST 185 H D ALT 56 Alkaline Phosphatase 104 Ammonia Total Protein 6.2 L Albumin 2.5 L Globulin 3.7 Albumin/Globulin Ratio 0.7 L Alpha Fetoprotein 3.3 12/12/17 06:26 WBC RBC Hgb Hct MCV MCH MCHC RDW Plt Count MPV Neut % (Auto) Lymph % (Auto) [place] % (Auto) Eos % (Auto) Baso % (Auto) Neut # (Auto) Lymph # (Auto) [place] # (Auto) Eos # (Auto) Baso # (Auto) Sodium Potassium Chloride Carbon Dioxide Anion Gap BUN Creatinine Est GFR ( Amer) Est GFR (Non-Af Amer) Random Glucose Calcium Phosphorus Magnesium Total Bilirubin AST ALT Alkaline Phosphatase Ammonia 58 H D Total Protein Albumin Globulin Albumin/Globulin Ratio Alpha Fetoprotein
[2017-12-13 00:13] VITALS: O2SAT 94
[2017-12-13 00:14] VITALS: TEMP 98.2
[2017-12-13 06:28] LABS: MEAN CELL VOLUME 89.6 fL (80.0-94.0); MEAN CORPUSCULAR HEMOGLOBIN 30.7 pg (27.0-31.0); MEAN CORPUSCULAR HGB CONC 34.2 g/dL (33.0-37.0); MEAN PLATELET VOLUME 8.7 fL (7.2-11.7); RBC 2.6 Mil/uL (4.40-5.90); RED CELL DISTRIBUTION WIDTH 21.1 % (11.5-14.5); WHITE BLOOD COUNT 3.3 K/uL (4.8-10.8)
[2017-12-13 06:44] LABS: ALB/GLOB RATIO 0.7 (1.0-2.1); ALBUMIN 2.2 g/dL (3.5-5.0); ALT/SGPT 51 U/L (21-72); AST/SGOT 117 U/L (17-59); BLOOD UREA NITROGEN 8 mg/dL (9-20); CALCIUM 7.1 mg/dl (8.6-10.4); GFR AFRICAN-AMERICAN > 60; GFR NON-AFRICAN AMERICAN > 60
[2017-12-13 07:10] LABS: INR 2.4; PROTHROMBIN TIME 26.4 SECONDS (9.7-12.2)
[2017-12-13] MEDS: Pantoprazole 40 mg EC Tab PO SCH (09:56)
[2017-12-13 14:03] VITALS: BP 104/65; RESP 13
[2017-12-13 16:51] VITALS: PULSE 72
--- NOTE | 2017-12-13 17:17 | CP.PCM.PN ---
Subjective - Date & Time of Evaluation Date of Evaluation: 12/13/17 Time of Evaluation: 17:14 - Subjective Subjective: Wants to go home. Brown stool today. No melena or vomiting. TOlerating diet. Hgb=8 LFTs and PT-INR improving. NH3- normal Sono shows Cirrhotic liver, multiple gallstones with thickened GB and mild pericholecystic fluid, nl duct. Objective - Vital Signs/Intake and Output Vital Signs (last 24 hours): Temp Pulse Resp BP Pulse Ox 98.2 F 72 13 104/65 94 L 12/13/17 00:00 12/13/17 15:00 12/13/17 14:00 12/13/17 11:58 12/13/17 00:00 Intake and Output: 12/13/17 12/13/17 06:59 18:59 Intake Total 1380 Output Total 1500 Balance -120 - Medications Medications: Current Medications Chlordiazepoxide (Librium) 25 mg PO Q4 PRN PRN Reason: Anxiety Last Admin: 12/13/17 16:43 Dose: 25 mg Phytonadione 10 mg/ Sodium (Chloride) 51 mls @ 204 mls/hr IV Q24H [facility] Last Admin: 12/12/17 18:17 Dose: 204 mls/hr Pantoprazole Sodium (Protonix Ec Tab) 40 mg PO DAILY [facility] Last Admin: 12/13/17 09:56 Dose: 40 mg Propranolol HCl (Inderal) 10 mg PO TID [facility] Last Admin: 12/13/17 14:00 Dose: Not Given - Labs Labs: 12/13/17 06:17 12/13/17 06:17 PT 26.4 SECONDS (9.7-12.2) H D 12/13/17 06:17 INR 2.4 D 12/13/17 06:17 - Constitutional Appears: No Acute Distress - Head Exam Head Exam: ATRAUMATIC, NORMOCEPHALIC - Eye Exam Eye Exam: Scleral icterus - Respiratory Exam Respiratory Exam: NORMAL BREATHING PATTERN - Cardiovascular Exam Cardiovascular Exam: REGULAR RHYTHM - GI/Abdominal Exam GI & Abdominal Exam: Soft, Normal Bowel Sounds, Organomegaly. absent: Tenderness - Extremities Exam Extremities Exam: Normal Inspection Assessment and Plan (1) Acute GI bleeding Assessment & Plan: Bleeding has stopped. Continue Inderal and PPI upon discharge. Advise follow up EGD in 6 months to assess varices progression and need for banding Status: Acute (2) Alcoholic cirrhosis Assessment & Plan: Follow up in [facility] and refer to GI for follow up. Status: Chronic (3) Esophageal varices Status: Chronic (4) Acute blood loss anemia Assessment & Plan: Stable at present Status: Acute (5) Cholelithiasis Assessment & Plan: Multiple gallstones and findings suggesting chronic cholecystitis. Not a surgical candidate at present. Would consider elective Lap Sherri when his liver disease has stabilized and he is no longer drinking. If not the GB may need to be removed on readmission for acute cholecystitis. High surgical risk at this time. Status: Acute (6) Alcohol abuse Assessment & Plan: Needs alcohol rehab or outpatient counseling. Patient aware of need to abstain for short and [facility] survival. High risk of rebleeding from varices if he continues to drink. Status: Acute
[2017-12-13] MEDS: Phytonadione 10 MG in Sodium Chloride 0.9% 50 ML IV SCH (18:03)
--- NOTE | 2017-12-13 20:49 | CP.PCM.DIS ---
Provider - Provider Date of Admission: 12/11/17 10:10 Attending physician: Gabriel Landrum MD Hospital Course - Lab Results Lab Results: Micro Results 12/11/17 17:47 Naris MRSA Culture (Admit) - Final MRSA NOT DETECTED Most Recent Lab Values WBC 3.3 K/uL (4.8-10.8) L 12/13/17 06:17 RBC 2.60 Mil/uL (4.40-5.90) L 12/13/17 06:17 Hgb 8.0 g/dL (12.0-18.0) L 12/13/17 06:17 Hct 23.3 % (35.0-51.0) L 12/13/17 06:17 MCV 89.6 fL (80.0-94.0) 12/13/17 06:17 MCH 30.7 pg (27.0-31.0) 12/13/17 06:17 MCHC 34.2 g/dL (33.0-37.0) 12/13/17 06:17 RDW 21.1 % (11.5-14.5) H 12/13/17 06:17 Plt Count 45 K/uL (130-400) L 12/13/17 06:17 MPV 8.7 fL (7.2-11.7) 12/13/17 06:17 Neut % (Auto) 55.4 % (50.0-75.0) 12/12/17 06:26 Lymph % (Auto) 31.6 % (20.0-40.0) 12/12/17 06:26 [place] % (Auto) 8.1 % (0.0-10.0) 12/12/17 06:26 Eos % (Auto) 2.9 % (0.0-4.0) 12/12/17 06:26 Baso % (Auto) 2.0 % (0.0-2.0) 12/12/17 06:26 Neut # (Auto) 2.3 K/uL (1.8-7.0) 12/12/17 06:26 Lymph # (Auto) 1.3 K/uL (1.0-4.3) 12/12/17 06:26 [place] # (Auto) 0.3 K/uL (0.0-0.8) 12/12/17 06:26 Eos # (Auto) 0.1 K/uL (0.0-0.7) 12/12/17 06:26 Baso # (Auto) 0.1 K/uL (0.0-0.2) 12/12/17 06:26 Differential Comment 12/11/17 08:12 PT 26.4 SECONDS (9.7-12.2) H D 12/13/17 06:17 INR 2.4 D 12/13/17 06:17 Sodium 136 mmol/L (132-148) 12/13/17 06:17 Potassium 3.3 mmol/L (3.6-5.2) L 12/13/17 06:17 Chloride 105 mmol/L (98-107) 12/13/17 06:17 Carbon Dioxide 25 mmol/L (22-30) 12/13/17 06:17 Anion Gap 9 (10-20) L 12/13/17 06:17 BUN 8 mg/dL (9-20) L 12/13/17 06:17 Creatinine 0.6 mg/dL (0.8-1.5) L 12/13/17 06:17 Est GFR ( Amer) > 60 12/13/17 06:17 Est GFR (Non-Af Amer) > 60 12/13/17 06:17 Random Glucose 89 mg/dL (75-110) 12/13/17 06:17 Calcium 7.1 mg/dl (8.6-10.4) L 12/13/17 06:17 Phosphorus 2.6 mg/dL (2.5-4.5) 12/12/17 06:26 Magnesium 1.5 mg/dL (1.6-2.3) L 12/12/17 06:26 Total Bilirubin 9.4 mg/dL (0.2-1.3) H 12/13/17 06:17 AST 117 U/L (17-59) H D 12/13/17 06:17 ALT 51 U/L (21-72) 12/13/17 06:17 Alkaline Phosphatase 94 U/L (38-126) 12/13/17 06:17 Ammonia 58 umol/L (9-33) H D 12/12/17 06:26 Total Protein 5.5 g/dL (6.3-8.3) L 12/13/17 06:17 Albumin 2.2 g/dL (3.5-5.0) L 12/13/17 06:17 Globulin 3.3 gm/dL (2.2-3.9) 12/13/17 06:17 Albumin/Globulin Ratio 0.7 (1.0-2.1) L 12/13/17 06:17 Lipase 249 U/L (23-300) 12/11/17 08:12 Alpha Fetoprotein 3.3 ng/mL (0.0-7.5) 12/12/17 06:26 Urine Color Leslie (YELLOW) 12/11/17 09:34 Urine Clarity Clear (Clear) 12/11/17 09:34 Urine pH 7.0 (5.0-8.0) 12/11/17 09:34 Ur Specific [place] 1.015 (1.003-1.030) 12/11/17 09:34 Urine Protein Negative mg/dL (NEGATIVE) 12/11/17 09:34 Urine Glucose (UA) Normal mg/dL (Normal) 12/11/17 09:34 Urine Ketones Negative mg/dL (NEGATIVE) 12/11/17 09:34 Urine Blood Negative (NEGATIVE) 12/11/17 09:34 Urine Nitrate Negative (NEGATIVE) 12/11/17 09:34 Urine Bilirubin Negative (NEGATIVE) 12/11/17 09:34 Urine Urobilinogen 4.0 mg/dL (0.2-1.0) 12/11/17 09:34 Ur Leukocyte Esterase Neg Wendie/uL (Negative) 12/11/17 09:34 Urine WBC (Auto) 2 /hpf (0-5) 12/11/17 09:34 Urine RBC (Auto) 1 /hpf (0-3) 12/11/17 09:34 Ur Squamous Epith Cells 2 /hpf (0-5) 12/11/17 09:34 Blood Type O POSITIVE 12/11/17 09:45 Antibody Screen Negative 12/11/17 09:45 Discharge Exam - Head Exam Head Exam: ATRAUMATIC, NORMOCEPHALIC Discharge Plan - Follow Up Plan Condition: GUARDED Disposition: HOME/ ROUTINE Instructions: Gastrointestinal Bleeding (DC), Cirrhosis (DC), Alcohol Abuse and Alcoholism (DC), Esophageal Varices (DC)
--- NOTE | 2017-12-14 09:10 | DS ---
Copied To: Gabriel Landrum MD Attending MD: Gabriel Landrum MD ADMISSION DIAGNOSES: 1. Cirrhosis of liver. 2. Alcoholic liver disease. DISCHARGE DIAGNOSES: 1. 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 2. Alcoholism. 3. Dehydration and hypokalemia. 4. Coagulopathy. HISTORY OF PRESENT ILLNESS: This is a 42-year-old white male with end-stage liver disease due to cirrhosis of liver who was admitted with GI bleed and patient had history of prior variceal bleeding with banding in [place] in August and then he was recently in [facility]. Patient came in because of nausea, vomiting, hematemesis, and black tarry stool. Patient underwent emergent endoscopy and his bleeding was resolved. His H and H is stable and he has been cleared for discharge. His coagulopathy has been corrected with vitamin K. Potassium has been replaced. Patient is afebrile. He agrees not to drink and he agrees to be followed up as outpatient. His condition is stable upon discharge. During the course of hospitalization, he was seen by Dr. Araya who evaluated him and his MRSA was negative in the nares and his vital signs today were blood pressure 100/70, pulse 72, respiratory rate 20, temperature 99. Discharged. Gabriel Landrum MD
== END 2017-12-13 19:00 | disposition home or self-care (01) | DRG 894 ==
LOC: C.ER 07:28 → C.9E 10:10 → C.9I 16:17
PROVIDERS: ADMIT Internal Medicine; ATTEND Internal Medicine
PROC: 0DJ08ZZ Inspection of Upper Intestinal Tract, Via Natural or Artificial Opening Endoscopic (ICD-10-PCS; principal; 2017-12-11 12:30)
DX: I85.00 Esophageal varices without bleeding (principal); E86.0 Dehydration; K92.0 Hematemesis; D69.6 Thrombocytopenia, unspecified; D62 Acute posthemorrhagic anemia; E87.6 Hypokalemia; K70.31 Alcoholic cirrhosis of liver with ascites; F10.20 Alcohol dependence, uncomplicated; K72.10 Chronic hepatic failure without coma; F17.210 Nicotine dependence, cigarettes, uncomplicated; K27.9 Peptic ulcer, site unspecified, unspecified as acute or chronic, without hemorrhage or perforation; D73.1 Hypersplenism; D68.9 Coagulation defect, unspecified; I85.10 Secondary esophageal varices without bleeding

== ENCOUNTER 2018-01-02 05:47 | Inpatient (IN) | payer MEDICAID ==
[2018-01-02] MEDS ORDERED: Sodium Chloride 0.9% 1,000 ML IV ONE ×2 (06:03→06:11)
--- NOTE | 2018-01-02 06:06 | C.PDOC ---
History Of Present Illness 42 year old male is brought to the ED by EMS for evaluation of GI bleed. Patient states since yesterday afternoon he was vomiting blood, which also kept happening this morning. Patient states having history of the same thing few months ago. Patient had to be admitted to the Hospital for it. Patient denies weakness, numbness, fever, chills, CP, SOB. Chief Complaint (Nursing): GI Problem History Per: Patient, EMS History/Exam Limitations: no limitations Onset/Duration Of Symptoms: Days Current Symptoms Are (Timing): Still Present Number Of Bleeding Episodes: One Amount of Blood Loss: Small Severity: Mild Quality Of Discomfort: "Pain" Associated Symptoms: Hematemesis Modifying Factors: None Recent travel outside of the [place]: No Additional History Per: Patient Past Medical History Reviewed: Historical Data, Nursing Documentation, Vital Signs Vital Signs: Last Vital Signs Temp 97.7 F 01/02/18 05:56 Pulse 90 01/02/18 06:35 Resp 14 01/02/18 06:35 BP 95/44 L 01/02/18 06:35 Pulse Ox 100 01/02/18 06:40 - Medical History PMH: Gastritis, Gall Bladder Disease, Pneumonia Denies: HIV, Chronic Kidney Disease Surgical History: No Surg Hx - [facility] Procedures INSPECTION OF UPPER INTESTINAL TRACT, ENDO (12/11/17) Family History: States: Unknown Family Hx - Social History Hx Alcohol Use: Yes (ON AND OFF OVER 30 YRS) Hx Substance Use: Yes (SOMETIMES) - Immunization History Hx Tetanus Toxoid Vaccination: No Hx Influenza Vaccination: Yes Hx Pneumococcal Vaccination: Yes Review Of Systems Constitutional: Negative for: Fever, Chills Cardiovascular: Negative for: Chest Pain Respiratory: Negative for: Cough, Shortness of Breath Gastrointestinal: Positive for: Hematemesis. Negative for: Abdominal Pain Skin: Negative for: Rash Neurological: Negative for: Weakness, Numbness Physical Exam - Physical Exam Appears: Non-toxic, No Acute Distress Skin: Normal Color, Warm, Dry Head: Atraumatic, Normacephalic Eye(s): bilateral: Normal Inspection, Conjunctiva Pale Oral Mucosa: Moist Neck: Normal ROM, Supple Chest: Symmetrical Cardiovascular: Rhythm Regular Respiratory: Normal Breath Sounds, No Rales, No Rhonchi, No Wheezing Gastrointestinal/Abdominal: Soft, No Tenderness, Distention, No Guarding, No Rebound Extremity: Normal ROM, No Tenderness, No Swelling Neurological/Psych: Oriented x3, Normal Speech Gait: Unable To Assess ED Course And Treatment - Laboratory Results Result Diagrams: 01/02/18 06:14 01/02/18 06:14 O2 Sat by Pulse Oximetry: 100 (ON RA) Pulse Ox Interpretation: Normal Medical Decision Making Medical Decision Making: Plan: * Labs * EKG * IV fluids * Stool culture 6:30- Dr. Torres ICU industrial controls technician was paged and will come evaluate the patient. 6:30 - Called Dr. Grove Hospitalist who accepted the patient for admission 6:35 -Paged GI industrial controls technician, Dr. Holly waiting for a call back Disposition Discussed With : Hari Grove Comment: Dr. oTrres-ICU consult. Doctor Will See Patient In The: Hospital Counseled Patient/Family Regarding: Diagnosis - Disposition Disposition: HOSPITALIZED Disposition Time: 06:35 Condition: GUARDED Forms: [facility] ([place]) - POA Present On Arrival: None - Clinical Impression Clinical Impression: Acute GI bleeding, Esophageal varices, Acute blood loss anemia - Scribe Statement The provider has reviewed the documentation as recorded by the Scribe Oneil Jerez All medical record entries made by the Scribe were at my direction and personally dictated by me. I have reviewed the chart and agree that the record accurately reflects my personal performance of the history, physical exam, medical decision making, and the department course for this patient. I have also personally directed, reviewed, and agree with the discharge instructions and disposition.
[2018-01-02] MEDS ORDERED: Pantoprazole 80 MG in Sodium Chloride 0.9% 100 ML IVP SCH (06:15)
[2018-01-02 06:17] LABS: BASO # 0.1 K/uL (0.0-0.2); BASO % 0.9 % (0.0-2.0); EOS # 0.1 K/uL (0.0-0.7); EOS % 0.8 % (0.0-4.0); LYMPH # 1.4 K/uL (1.0-4.3); LYMPH % 20.9 % (20.0-40.0); MEAN CELL VOLUME 93.7 fL (80.0-94.0); MEAN CORPUSCULAR HEMOGLOBIN 30.4 pg (27.0-31.0); MEAN CORPUSCULAR HGB CONC 32.5 g/dL (33.0-37.0); MEAN PLATELET VOLUME 8.8 fL (7.2-11.7); MONO # 0.5 K/uL (0.0-0.8); MONO % 8.2 % (0.0-10.0); NEUT # 4.6 K/uL (1.8-7.0); NEUT % 69.2 % (50.0-75.0); NRBC % 0.1 % (0.0-2.0); RBC 1.84 Mil/uL (4.40-5.90); RED CELL DISTRIBUTION WIDTH 21.3 % (11.5-14.5); WHITE BLOOD COUNT 6.6 K/uL (4.8-10.8)
[2018-01-02 06:20] LABS: HEMOGLOBIN 5.6 g/dL (12.0-18.0)
[2018-01-02 06:21] LABS: INR 2.8; PROTHROMBIN TIME 30.2 SECONDS (9.7-12.2)
[2018-01-02 06:28] LABS: ALB/GLOB RATIO 0.7 (1.0-2.1); ALT/SGPT 37 U/L (21-72); AST/SGOT 76 U/L (17-59); BLOOD UREA NITROGEN 15 mg/dL (9-20); CALCIUM 7.9 mg/dl (8.6-10.4); GFR NON-AFRICAN AMERICAN > 60
[2018-01-02] MEDS: Pantoprazole 80 MG in Sodium Chloride 0.9% 100 ML IVPB SCH ×2 (06:28→17:06)
[2018-01-02] MEDS ORDERED: Octreotide 500 mcg/ml Inj IV STA (06:51)
[2018-01-02] MEDS ORDERED: Octreotide 1,250 MCG in Dextrose 5% In Water 250 ML IV SCH ×2 (07:00)
--- NOTE | 2018-01-02 08:18 | CP.PCM.HP ---
<Leonie Goodman - Last Filed: 01/02/18 08:04> History of Present Illness - History of Present Illness History of Present Illness: cc: hematemesis Mr. Mckeon is a 42 year old male PMH esophageal varices, liver cirrhosis, gallstones, alcohol abuse, multi drug use, noncompliance comes to [facility] today after vomiting and diarrhea since last night. He was recently discharged from [facility] 12/11- for esophageal varices and upper GI bleed. He was also admitted in [place] for this issue where he had his esophageal varices banded and required 11 units of PRBC. He has also needed 2 paracenteses, both of which produce a significant amount of fluid. He has been noncompliant with his medications and hasn't followed up with any doctors. He last ate yesterday morning his normal diet (kosovan toast, lactaid, KoolAid/Condon) and started feeling weak. Overnight he had 2 episodes of vomiting what he ate eaten. He then had 5 episodes each of vomiting and diarrhea that progressed from watery with black clotted blood to bright red blood. He felt weak, lightheaded, and cold despite extra layers, and was brought in by EMS. Denies chest pain, numbness, tingling, fever, abdominal pain. PMH: esophageal varices, liver cirrhosis, gallstones, EtOH use, tobacco, substance abuse PSxH: EGD with banding of esophageal varices, umbilical hernia repair FamHx: Father - GSW, Mother - PNA SocHx: 1.5 ppd smoker x35 years, 1-2 pints vodka/day, trying to taper since 2017, current marajuana use, past PCP and cocaine Med: non compliant All: NKDA Full Code Present on Admission - Present on Admission Any Indicators Present on Admission: No Past Patient History - Infectious Disease Hx of Infectious Diseases: None - Past Medical History & Family History Past Medical History?: Yes - Past Social History Smoking Status: Heavy Smoker > 10 Cigarettes Daily Alcohol: > 2 Drinks/Day Drugs: Cannabis, Cocaine - CARDIAC Hx Cardiac Disorders: No - PULMONARY Hx Pneumonia: Yes - NEUROLOGICAL Hx Neurological Disorder: No - HEENT Hx HEENT Problems: Yes Other/Comment: eye sight getting blurry, need to be checked - RENAL Hx Chronic Kidney Disease: No - ENDOCRINE/METABOLIC Hx Endocrine Disorders: No - HEMATOLOGICAL/ONCOLOGICAL Hx Human Immunodeficiency Virus (HIV): No - INTEGUMENTARY Hx Dermatological Problems: No - MUSCULOSKELETAL/RHEUMATOLOGICAL Hx Musculoskeletal Disorders: No - GASTROINTESTINAL Hx Gall Bladder Disease: Yes Hx Gastritis: Yes - GENITOURINARY/GYNECOLOGICAL Hx Genitourinary Disorders: No - PSYCHIATRIC Hx Substance Use: Yes (SOMETIMES) - SURGICAL HISTORY Hx Surgeries: Yes Hx Herniorrhaphy: Yes Other/Comment: umbilical hernia repair - ANESTHESIA Hx Anesthesia: Yes Hx Anesthesia Reactions: No Meds Allergies/Adverse Reactions: Allergies Allergy/AdvReac Type Severity Reaction Status Date / Time No Known Allergies Allergy Unverified 01/02/18 06:02 Physical Exam - Constitutional Appears: Non-toxic - Head Exam Head Exam: ATRAUMATIC, NORMOCEPHALIC - Eye Exam Eye Exam: EOMI, Normal appearance, PERRL. absent: Conjunctival injection, Scleral icterus - ENT Exam ENT Exam: Normal Exam - Respiratory Exam Respiratory Exam: Clear to Auscultation Bilateral, NORMAL BREATHING PATTERN. absent: Rales, Rhonchi, Wheezes - Cardiovascular Exam Cardiovascular Exam: REGULAR RHYTHM, +S1, +S2. absent: Systolic Murmur - GI/Abdominal Exam GI & Abdominal Exam: Distended, Normal Bowel Sounds, Soft. absent: Rebound, Rigid, Tenderness Additional comments: striae, dull to percussion - Extremities Exam Extremities exam: Positive for: full ROM, pedal edema, pedal pulses present Additional comments: 1+ pedal edema - Neurological Exam Neurological exam: Alert, Oriented x3, Reflexes Normal - Psychiatric Exam Psychiatric exam: Normal Affect, Normal Mood - Skin Skin Exam: Dry, Pallor Additional comments: no tenting, good turgor Results - Vital Signs Recent Vital Signs: Last Vital Signs Temp 97.7 F 01/02/18 07:30 Pulse 91 H 01/02/18 08:00 Resp 16 01/02/18 08:00 BP 103/56 L 01/02/18 08:00 Pulse Ox 100 01/02/18 08:00 - Labs Result Diagrams: 01/02/18 06:14 01/02/18 06:14 Labs: Laboratory Results - last 24 hr 01/02/18 01/02/18 01/02/18 05:58 06:14 06:14 WBC 6.6 D RBC 1.84 L Hgb 5.6 L* D Hct 17.2 L MCV 93.7 D MCH 30.4 MCHC 32.5 L RDW 21.3 H Plt Count 115 L D MPV 8.8 Neut % (Auto) 69.2 Lymph % (Auto) 20.9 Hanson % (Auto) 8.2 Eos % (Auto) 0.8 Baso % (Auto) 0.9 Neut # (Auto) 4.6 Lymph # (Auto) 1.4 Hanson # (Auto) 0.5 Eos # (Auto) 0.1 Baso # (Auto) 0.1 PT 30.2 H INR 2.8 APTT 31 Sodium Potassium Chloride Carbon Dioxide Anion Gap BUN Creatinine Est GFR ( Amer) Est GFR (Non-Af Amer) POC Glucose (mg/dL) 114 H Random Glucose Calcium Total Bilirubin AST ALT Alkaline Phosphatase Total Protein Albumin Globulin Albumin/Globulin Ratio Stool Occult Blood Blood Type Antibody Screen 01/02/18 01/02/18 01/02/18 06:14 06:15 06:20 WBC RBC Hgb Hct MCV MCH MCHC RDW Plt Count MPV Neut % (Auto) Lymph % (Auto) Hanson % (Auto) Eos % (Auto) Baso % (Auto) Neut # (Auto) Lymph # (Auto) Hanson # (Auto) Eos # (Auto) Baso # (Auto) PT INR APTT Sodium 137 Potassium 3.8 Chloride 104 Carbon Dioxide 23 Anion Gap 13 BUN 15 Creatinine 0.7 L Est GFR ( Amer) > 60 Est GFR (Non-Af Amer) > 60 POC Glucose (mg/dL) Random Glucose 109 Calcium 7.9 L Total Bilirubin 4.2 H AST 76 H D ALT 37 Alkaline Phosphatase 66 Total Protein 5.1 L Albumin 2.0 L Globulin 3.1 Albumin/Globulin Ratio 0.7 L Stool Occult Blood Positive H Blood Type O POSITIVE Antibody Screen Negative Assessment & Plan - Assessment and Plan (Free Text) Plan: 1) Upper GI Bleed due to Esophageal varices - H&H OA: 5.6/17.2 - Type and Crossed, receiving 6u PRBC - stool occult blood positive - hypotensive due to volume loss - other vitals stable, patient is alert and oriented - GI consulted: Dr. Holly - recs appreciated - Octreotide and Pantoprazole started - absolute NPO including meds, including ice chips 2) Liver cirrhosis - f/u ammonium levels - f/u hepatitis panel - PT 30.2, INR 2.8, PTT 31 - AST 76, ALT 37 - VitK given once - Transfuse FFP 3) Alcohol Abuse - Folic Acid, Thiamine started - advised to quit 4) Nicotine Use - consider Nicotine patch - advised to quit 5) PPx - DVT: CI due to acute GI bleed, SCDs - GI: Pantoprazole - NPO Accepted in the ICU d/w Dr. Ruma Goodman PGY-1 - Date & Time Date: 01/02/18 Time: 06:45 <Rosendo Hendrix - Last Filed: 01/02/18 17:31> Results - Vital Signs Recent Vital Signs: Last Vital Signs Temp 98.5 F 01/02/18 15:50 Pulse 91 H 01/02/18 15:50 Resp 18 01/02/18 15:50 BP 100/58 L 01/02/18 15:50 Pulse Ox 97 01/02/18 15:30 - Labs Result Diagrams: 01/02/18 14:22 01/02/18 06:14 Labs: Laboratory Results - last 24 hr 01/02/18 01/02/18 01/02/18 05:58 06:14 06:14 WBC 6.6 D RBC 1.84 L Hgb 5.6 L* D Hct 17.2 L MCV 93.7 D MCH 30.4 MCHC 32.5 L RDW 21.3 H Plt Count 115 L D MPV 8.8 Neut % (Auto) 69.2 Lymph % (Auto) 20.9 Hanson % (Auto) 8.2 Eos % (Auto) 0.8 Baso % (Auto) 0.9 Neut # (Auto) 4.6 Lymph # (Auto) 1.4 Hanson # (Auto) 0.5 Eos # (Auto) 0.1 Baso # (Auto) 0.1 PT 30.2 H INR 2.8 APTT 31 Sodium Potassium Chloride Carbon Dioxide Anion Gap BUN Creatinine Est GFR ( Amer) Est GFR (Non-Af Amer) POC Glucose (mg/dL) 114 H Random Glucose Calcium Magnesium Total Bilirubin AST ALT Alkaline Phosphatase Ammonia Total Protein Albumin Globulin Albumin/Globulin Ratio Stool Occult Blood Urine Opiates Screen Urine Methadone Screen Ur Barbiturates Screen Ur Phencyclidine Scrn Ur Amphetamines Screen U Benzodiazepines Scrn U Oth Cocaine Metabols U Cannabinoids Screen Alcohol, Quantitative Blood Type Antibody Screen 01/02/18 01/02/18 01/02/18 06:14 06:15 06:20 WBC RBC Hgb Hct MCV MCH MCHC RDW Plt Count MPV Neut % (Auto) Lymph % (Auto) Hanson % (Auto) Eos % (Auto) Baso % (Auto) Neut # (Auto) Lymph # (Auto) Hanson # (Auto) Eos # (Auto) Baso # (Auto) PT INR APTT Sodium 137 Potassium 3.8 Chloride 104 Carbon Dioxide 23 Anion Gap 13 BUN 15 Creatinine 0.7 L Est GFR ( Amer) > 60 Est GFR (Non-Af Amer) > 60 POC Glucose (mg/dL) Random Glucose 109 Calcium 7.9 L Magnesium 1.8 Total Bilirubin 4.2 H AST 76 H D ALT 37 Alkaline Phosphatase 66 Ammonia Total Protein 5.1 L Albumin 2.0 L Globulin 3.1 Albumin/Globulin Ratio 0.7 L Stool Occult Blood Positive H Urine Opiates Screen Urine Methadone Screen Ur Barbiturates Screen Ur Phencyclidine Scrn Ur Amphetamines Screen U Benzodiazepines Scrn U Oth Cocaine Metabols U Cannabinoids Screen Alcohol, Quantitative Blood Type O POSITIVE Antibody Screen Negative 01/02/18 01/02/18 01/02/18 09:50 09:50 14:22 WBC RBC Hgb Hct MCV MCH MCHC RDW Plt Count MPV Neut % (Auto) Lymph % (Auto) Hanson % (Auto) Eos % (Auto) Baso % (Auto) Neut # (Auto) Lymph # (Auto) Hanson # (Auto) Eos # (Auto) Baso # (Auto) PT INR APTT Sodium Potassium Chloride Carbon Dioxide Anion Gap BUN Creatinine Est GFR ( Amer) Est GFR (Non-Af Amer) POC Glucose (mg/dL) Random Glucose Calcium Magnesium Total Bilirubin AST ALT Alkaline Phosphatase Ammonia 45 H D Total Protein Albumin Globulin Albumin/Globulin Ratio Stool Occult Blood Urine Opiates Screen Negative Urine Methadone Screen Negative Ur Barbiturates Screen Negative Ur Phencyclidine Scrn Negative Ur Amphetamines Screen Negative U Benzodiazepines Scrn Positive U Oth Cocaine Metabols Negative U Cannabinoids Screen Positive H Alcohol, Quantitative < 10 Blood Type Antibody Screen 01/02/18 01/02/18 14:22 14:22 WBC 5.4 RBC 1.86 L Hgb 5.7 L* Hct 16.9 L MCV 90.7 D MCH 30.4 MCHC 33.6 RDW 19.1 H Plt Count 77 L D MPV 8.5 Neut % (Auto) Lymph % (Auto) Hanson % (Auto) Eos % (Auto) Baso % (Auto) Neut # (Auto) Lymph # (Auto) Hanson # (Auto) Eos # (Auto) Baso # (Auto) PT 25.4 H INR 2.3 D APTT 38 H D Sodium Potassium Chloride Carbon Dioxide Anion Gap BUN Creatinine Est GFR ( Amer) Est GFR (Non-Af Amer) POC Glucose (mg/dL) Random Glucose Calcium Magnesium Total Bilirubin AST ALT Alkaline Phosphatase Ammonia Total Protein Albumin Globulin Albumin/Globulin Ratio Stool Occult Blood Urine Opiates Screen Urine Methadone Screen Ur Barbiturates Screen Ur Phencyclidine Scrn Ur Amphetamines Screen U Benzodiazepines Scrn U Oth Cocaine Metabols U Cannabinoids Screen Alcohol, Quantitative Blood Type Antibody Screen Attending/Attestation - Attestation I have personally seen and examined this patient.: Yes I have fully participated in the care of the patient.: Yes I have reviewed all pertinent clinical information: Yes Notes (Text): Seen and examined with Dr Ansari this morning. patient gave history. He has history of liver cirrhosis,noncompliance with medication,Esophageal varices, alcohol abuse and ascites came to ER for vomiting blood and ling. Recent admission at [facility] for same hematemesis and ling . EGD 12/11/2017 showed grade I varices He was hospitalized in [place] in Aug, 2017 he has similar GI bleeding and needed 7 bags of blood.At that time the varices were ligated and paracentesis was performed. He was prescribed diuretics,protonix and lactulose .He is non- compliant with the medications and not taking. 1.Upper GI bleeding Esophageal varices ,liver cirrhosis NPO,FFP,PRBC,Vit K Protonix drip,octreotide drip,ICU monitor,CBC monitor GI consult Do amonia level 2.Liver cirrhosis 3.Ascites 4.alcohol abue 5.noncompliance with meds 6.Hypercoagulation state Assessment and the plan discussed with DR Ansari resident
[2018-01-02] MEDS ORDERED: Phytonadione 10 mg/ml Inj (Adult) SC ONE (08:30)
--- NOTE | 2018-01-02 08:56 | CP.PCM.CON ---
<Duncan Dudlye - Last Filed: 01/02/18 12:09> History of Present Illness - History of Present Illness History of Present Illness: ICU Consult Note Duncan Dudley, IM PGY-3 This is a 42 yo M with PMH of alcholic cirrhosis/liver failure, esophageal varices and variceal bleeding, EtOH/substance abuse, and medication non- compliance who presents with complaint of multiple episodes of emesis, initially with coffee-grounds material, now with dark red blood. HPI/ROS limited as patient is poor historian, has wandering thought processes and has to be redirected back to questions several times. He was also found to be hypotensive and have a Hgb of 5.6 (baseline from prior charting appears to be 8' s). Patient awake and alert at time of exam in ED, but slight slurring to start of each sentence. Reports last drink yesterday, reports one beer in mid- afternoon. Also reports smoking marijuana this AM. Denies other substance abuse currently, but admits to snorting heroin and cocaine in the past (doesn't specify further); denies ever using IV drugs, specifically denies hx of viral hepatitis. Reports malaise, fatigue, and worsening abdominal distension over a period of weeks. Denies any other symptoms, including chest pain, bilious emesis, shortness of breath, diarrhea, dysuria. All other ROS in 12-system review negative. Of note, patient recently seen in for similar complaint, from 12/11-12/13, at which time he underwent emergent EGD, and his bleeding resolved. Varcies deemed not suitable for banding at that time. Patient reports that he was discharged with a script for Lactulose, but he "couldn't find it anywhere," so the prescription was never filled. He reports being on 2 diuretics at home, which he can't recall the names of, but claims compliance. He also reports a similar hospitalization in [place] in August 2017, at which time he did undergo banding, and also received 8 units pRBCs and 3 units FFP (as per patient). PMH: as above PSH: esophageal variceal banding (August 2017) Fam Hx: patient unreliable, reports family has "everything", Father of gunshot wound, mother from hospital acquired pneumonia Soc Hx: former smoker, now vapes and intermittently smokes (can't or won't quantify further), extensive alcohol hx (reports last drink 1 day prior, 1 beer) Review of Systems - Review of Systems All systems: reviewed and no additional remarkable complaints except (as per HPI ) Past Patient History - Infectious Disease Hx of Infectious Diseases: None - Past Medical History & Family History Past Medical History?: Yes - Past Social History Smoking Status: Light Smoker < 10 Cigarettes Daily - CARDIAC Hx Cardiac Disorders: No - PULMONARY Hx Pneumonia: Yes - NEUROLOGICAL Hx Neurological Disorder: No - HEENT Hx HEENT Problems: Yes Other/Comment: eye sight getting blurry, need to be checked - RENAL Hx Chronic Kidney Disease: No - ENDOCRINE/METABOLIC Hx Endocrine Disorders: No - HEMATOLOGICAL/ONCOLOGICAL Hx Human Immunodeficiency Virus (HIV): No - INTEGUMENTARY Hx Dermatological Problems: No - MUSCULOSKELETAL/RHEUMATOLOGICAL Hx Musculoskeletal Disorders: No - GASTROINTESTINAL Hx Gall Bladder Disease: Yes Hx Gastritis: Yes - GENITOURINARY/GYNECOLOGICAL Hx Genitourinary Disorders: No - PSYCHIATRIC Hx Substance Use: Yes (SOMETIMES) - SURGICAL HISTORY Hx Surgeries: Yes Hx Herniorrhaphy: Yes Other/Comment: umbilical hernia repair - ANESTHESIA Hx Anesthesia: Yes Hx Anesthesia Reactions: No Meds Allergies/Adverse Reactions: Allergies Allergy/AdvReac Type Severity Reaction Status Date / Time No Known Allergies Allergy Unverified 01/02/18 06:02 - Medications Medications: Current Medications Sodium Chloride (Sodium Chloride 0.9%) 1,000 mls @ 100 mls/hr IV .Q10H ONE Stop: 01/02/18 16:02 Last Admin: 01/02/18 06:10 Dose: 100 mls/hr Sodium Chloride (Sodium Chloride 0.9%) 1,000 mls @ 100 mls/hr IV .Q10H ONE Stop: 01/02/18 16:10 Last Admin: 01/02/18 06:29 Dose: 100 mls/hr Pantoprazole Sodium 80 mg/ (Sodium Chloride) 100 mls @ 10 mls/hr IVPB .Q10H MIKI PRN Reason: 8 MG/HR Last Admin: 01/02/18 06:28 Dose: 10 mls/hr Octreotide Acetate 1,250 mcg/ (Dextrose) 252.5 mls @ 5.05 mls/hr IV .Q24H MIKI; 25 MCG/HR PRN Reason: Protocol Last Admin: 01/02/18 07:29 Dose: 5.05 mls/hr Phytonadione (Vitamin K Inj) 10 mg SC STAT STA Stop: 01/02/18 08:09 Physical Exam - Constitutional Additional comments: ill-appearing, not acutely distressed - Head Exam Head Exam: ATRAUMATIC, NORMAL INSPECTION, NORMOCEPHALIC - Eye Exam Eye Exam: EOMI, Scleral icterus (mild bilateral scleral icterus). absent: Conjunctival injection, Normal appearance Pupil Exam: absent: Fixed, Irregular - ENT Exam ENT Exam: Mucous Membranes Moist - Neck Exam Neck exam: Positive for: Full Rom - Respiratory Exam Respiratory Exam: Clear to Auscultation Bilateral, NORMAL BREATHING PATTERN. absent: Accessory Muscle Use, Chest Wall Tenderness, Decreased Breath Sounds, Prolonged Expiratory Phase, Rales, Rhonchi, Wheezes, Respiratory Distress - Cardiovascular Exam Cardiovascular Exam: REGULAR RHYTHM, RRR, +S1, +S2. absent: Bradycardia, Tachycardia, Irregular Rhythm, JVD, +S4 - GI/Abdominal Exam GI & Abdominal Exam: Diminished Bowel Sounds. absent: Hyperactive Bowel Sounds , Hypoactive Bowel Sounds, Normal Bowel Sounds Additional comments: notably distended abdomen with appreciable fluid wave, distension dependant on positioning, mildly tender to palpation diffusely firm but not rigid, unable to palpate any organomegaly due to extent of distension no caput medusa appreciated - Extremities Exam Extremities exam: Positive for: pedal edema (+2 pitting edema in bilateral feet , +1 pitting edema from ankles to mid-shins bilaterally). Negative for: calf tenderness, tenderness, pedal pulses present (unable to palpate pedal pulses through swelling) - Neurological Exam Additional comments: awake and alert, following commands appropriately, moving extremities spontaneously, no gross motor deficit appreciated - Psychiatric Exam Psychiatric exam: Normal Affect, Normal Mood - Skin Skin Exam: Dry, Intact, Normal Color, Warm Results - Vital Signs Recent Vital Signs: Last Vital Signs Temp 97.7 F 01/02/18 07:30 Pulse 91 H 01/02/18 08:00 Resp 16 01/02/18 08:00 BP 103/56 L 01/02/18 08:00 Pulse Ox 100 01/02/18 08:00 - Labs Result Diagrams: 01/02/18 06:14 01/02/18 06:14 Labs: Laboratory Results - last 24 hr 01/02/18 01/02/18 01/02/18 05:58 06:14 06:14 WBC 6.6 D RBC 1.84 L Hgb 5.6 L* D Hct 17.2 L MCV 93.7 D MCH 30.4 MCHC 32.5 L RDW 21.3 H Plt Count 115 L D MPV 8.8 Neut % (Auto) 69.2 Lymph % (Auto) 20.9 [place] % (Auto) 8.2 Eos % (Auto) 0.8 Baso % (Auto) 0.9 Neut # (Auto) 4.6 Lymph # (Auto) 1.4 [place] # (Auto) 0.5 Eos # (Auto) 0.1 Baso # (Auto) 0.1 PT 30.2 H INR 2.8 APTT 31 Sodium Potassium Chloride Carbon Dioxide Anion Gap BUN Creatinine Est GFR ( Amer) Est GFR (Non-Af Amer) POC Glucose (mg/dL) 114 H Random Glucose Calcium Total Bilirubin AST ALT Alkaline Phosphatase Total Protein Albumin Globulin Albumin/Globulin Ratio Stool Occult Blood Blood Type Antibody Screen 01/02/18 01/02/18 01/02/18 06:14 06:15 06:20 WBC RBC Hgb Hct MCV MCH MCHC RDW Plt Count MPV Neut % (Auto) Lymph % (Auto) [place] % (Auto) Eos % (Auto) Baso % (Auto) Neut # (Auto) Lymph # (Auto) [place] # (Auto) Eos # (Auto) Baso # (Auto) PT INR APTT Sodium 137 Potassium 3.8 Chloride 104 Carbon Dioxide 23 Anion Gap 13 BUN 15 Creatinine 0.7 L Est GFR ( Amer) > 60 Est GFR (Non-Af Amer) > 60 POC Glucose (mg/dL) Random Glucose 109 Calcium 7.9 L Total Bilirubin 4.2 H AST 76 H D ALT 37 Alkaline Phosphatase 66 Total Protein 5.1 L Albumin 2.0 L Globulin 3.1 Albumin/Globulin Ratio 0.7 L Stool Occult Blood Positive H Blood Type O POSITIVE Antibody Screen Negative Assessment & Plan - Assessment and Plan (Free Text) Assessment: This is a 42 yo M with PMH of alcholic cirrhosis/liver failure, esophageal varices and variceal bleeding, EtOH/substance abuse, and medication non- compliance who presents with complaint of multiple episodes of emesis, initially with coffee-grounds material, now with dark red blood. Admitted to ICU for severe anemia 2/2 acute upper GI bleed, concerning for new variceal bleed. Plan: Neuro: -awake and alert, oriented to self/place/time -Ammonia mildly elevated at 45, but not altered/obtunded, so will defer lactulose and rifaxamin at this time, given concern for acute bleed -monitor for hepatic encephalopathy -avoid tylenol use in cirrhotic pt, maintain normothermia with active cooling measures as needed -CIWA protocol and Ativan IV 1mg q6 prn ordered for possible pending alcohol withdrawal Pulm: -satting well on room air, up to 100% -goal is SaO2 > 92% -no acute intervention at this time Cardio: -hypotensive on arrival with BPs 80's/30's, but has improved to 100's/40's-50's with administration of IV fluids and blood transfusions -Hgb 5.6 on arrival, received 1 unit pRBCs in ED, ordered for another unit pRBCs and 2 units FFP, repeat coags and CBC after transfusion -HR remains in 90's after fluids and blood administered, continue to monitor -Banana bag ordered at 100cc/hr, s/p 2L bolus in ED, continue with fluids to appropriately rehydrate patient in setting of acute bleed GI: -Strict NPO -Protonix and octreotide drips running, Octreotide drip increased to 50 mcg/hr as per GI -PT 30.2, PTT 31, INR 2.8, NOT on anticoagulation; Maddrey's score 92.5, MELD 23 with 19.6% predicted 3-month mortality Maddrey score indicates would benefit from glucocorticoid therapy, but defer in setting of acute bleed, can consider after resolution of bleed -GI (Dr. Holly) consulted, appreciate all recs; agrees with Strict NPO, pRBCs /FFP, plan for EEG tomorrow unless patient acutely worsens -known alcoholic cirrhotic, but defer Lactulose and Rifaxamin at this time, given acute GI bleed and not showing signs of encephalopathy will reconsider if becomes acutely altered or after bleeding resolved and strict NPO is rescinded -Mildly elevated AST and normal ALT, more likely 2/2 extensive dysfunction of hepatocytes (unable to produce AST/ALT) -Notable ascites on exam, but GI bleed is priority at this time; no signs/sx of SBP, but in setting of cirrhosis and bleeding, will empirically cover for SBP with rocephin 1g daily Renal: -Cr 0.7, BUN 15 -Monitor and replete electrolytes as needed -Strict I's and O's Endo: -maintain euglycemia Heme: -Hgb 5.6 on admission, INR 2.8; transfusing 2 each of FFP and pRBCs will recheck CBC and Coags after transfusion and transfuse additionally as needed -Avoid AC in setting of acute GI bleeding, SCDs only for DVT ppx -likely coagulopathy 2/2 alcoholic cirrhosis ID: -WBCs 6.6, afebrile -empirically covering for SBP in setting of cirrhosis and ascites, rocephin 1g IV daily -blood and urine cx ordered, f/u Dispo: ICU, pending EGD tomorrow, pending repeat CBC and coags to assess status post-transfusion FEN: Strict NPO, Banana bag 100cc/hr Access: Peripheral IV's Consults: ICU, GI Ppx: Protonix drip covers for GI, SCDs for DVT Code: Full Patient seen and reviewed with attending, Dr. Torres. <Azalia Torres - Last Filed: 01/03/18 11:57> Meds - Medications Medications: Current Medications Pantoprazole Sodium 80 mg/ (Sodium Chloride) 100 mls @ 10 mls/hr IVPB .Q10H MIKI PRN Reason: 8 MG/HR Last Admin: 01/03/18 02:49 Dose: 10 mls/hr Folic Acid 1 mg/ Sodium (Chloride) 100.2 mls @ 60 mls/hr IV DAILY MIKI Last Admin: 01/03/18 10:06 Dose: 60 mls/hr Octreotide Acetate 1,250 mcg/ (Dextrose) 252.5 mls @ 10.1 mls/hr IV .Q24H MIKI; 50 MCG/HR PRN Reason: Protocol Last Admin: 01/02/18 09:50 Dose: Not Given Ceftriaxone Sodium 1 gm/ (Sodium Chloride) 100 mls @ 100 mls/hr IVPB DAILY MIKI PRN Reason: Protocol Last Admin: 01/03/18 10:06 Dose: 100 mls/hr Folic Acid 1 mg/ Thiamine HCl 100 mg/ Multivitamins/Vitamin C 10 ml/ Dextrose 1 ,011.2 mls @ 100 mls/hr IV Q24H MIKI Last Admin: 01/02/18 13:56 Dose: 100 mls/hr Lorazepam (Ativan) 1 mg IVP Q6H PRN PRN Reason: Symptoms of alcohol withdrawl Thiamine HCl (Vitamin B1 Inj) 100 mg IV DAILY MIKI Last Admin: 01/03/18 10:07 Dose: 100 mg Results - Vital Signs Recent Vital Signs: Last Vital Signs Temp 97.8 F 01/03/18 11:00 Pulse 85 01/03/18 11:01 Resp 16 01/03/18 11:01 BP 99/66 L 01/03/18 11:01 Pulse Ox 96 01/03/18 11:01 - Labs Result Diagrams: 01/03/18 06:36 01/03/18 06:33 Labs: Laboratory Results - last 24 hr 01/02/18 01/02/18 01/02/18 06:14 06:20 14:22 WBC RBC Hgb Hct MCV MCH MCHC RDW Plt Count MPV PT INR APTT Sodium 137 Potassium 3.8 Chloride 104 Carbon Dioxide 23 Anion Gap 13 BUN 15 Creatinine 0.7 L Est GFR ( Amer) > 60 Est GFR (Non-Af Amer) > 60 Random Glucose 109 Calcium 7.9 L Magnesium 1.8 Total Bilirubin 4.2 H AST 76 H D ALT 37 Alkaline Phosphatase 66 Ammonia Total Protein 5.1 L Albumin 2.0 L Globulin 3.1 Albumin/Globulin Ratio 0.7 L Urine Opiates Screen Negative Urine Methadone Screen Negative Ur Barbiturates Screen Negative Ur Phencyclidine Scrn Negative Ur Amphetamines Screen Negative U Benzodiazepines Scrn Positive U Oth Cocaine Metabols Negative U Cannabinoids Screen Positive H Hepatitis A IgM Ab Hep Bs Antigen Hep B Core IgM Ab Hepatitis C Antibody Blood Type O POSITIVE Antibody Screen Negative 01/02/18 01/02/18 01/02/18 14:22 14:22 20:06 WBC 5.4 5.1 RBC 1.86 L 2.27 L Hgb 5.7 L* 6.8 L Hct 16.9 L 20.4 L MCV 90.7 D 89.9 MCH 30.4 30.0 MCHC 33.6 33.4 RDW 19.1 H 17.3 H Plt Count 77 L D 79 L MPV 8.5 8.3 PT 25.4 H INR 2.3 D APTT 38 H D Sodium Potassium Chloride Carbon Dioxide Anion Gap BUN Creatinine Est GFR ( Amer) Est GFR (Non-Af Amer) Random Glucose Calcium Magnesium Total Bilirubin AST ALT Alkaline Phosphatase Ammonia Total Protein Albumin Globulin Albumin/Globulin Ratio Urine Opiates Screen Urine Methadone Screen Ur Barbiturates Screen Ur Phencyclidine Scrn Ur Amphetamines Screen U Benzodiazepines Scrn U Oth Cocaine Metabols U Cannabinoids Screen Hepatitis A IgM Ab Hep Bs Antigen Hep B Core IgM Ab Hepatitis C Antibody Blood Type Antibody Screen 01/02/18 01/03/18 01/03/18 20:06 06:33 06:33 WBC RBC Hgb Hct MCV MCH MCHC RDW Plt Count MPV PT 21.5 H INR 2.0 APTT 32 D Sodium Potassium Chloride Carbon Dioxide Anion Gap BUN Creatinine Est GFR ( Amer) Est GFR (Non-Af Amer) Random Glucose Calcium Magnesium Total Bilirubin AST ALT Alkaline Phosphatase Ammonia 107 H D Total Protein Albumin Globulin Albumin/Globulin Ratio Urine Opiates Screen Urine Methadone Screen Ur Barbiturates Screen Ur Phencyclidine Scrn Ur Amphetamines Screen U Benzodiazepines Scrn U Oth Cocaine Metabols U Cannabinoids Screen Hepatitis A IgM Ab Negative Hep Bs Antigen Negative Hep B Core IgM Ab Negative Hepatitis C Antibody Negative Blood Type Antibody Screen 01/03/18 01/03/18 01/03/18 06:33 06:36 06:36 WBC 3.7 L RBC 2.49 L Hgb 7.6 L Hct 22.5 L MCV 90.6 MCH 30.5 MCHC 33.7 RDW 17.2 H Plt Count 58 L D MPV 9.1 PT 22.9 H INR 2.1 APTT Sodium 132 Potassium 3.6 Chloride 103 Carbon Dioxide 21 L Anion Gap 12 BUN 18 Creatinine 0.7 L Est GFR ( Amer) > 60 Est GFR (Non-Af Amer) > 60 Random Glucose 259 H Calcium 7.4 L Magnesium 1.8 Total Bilirubin 5.3 H AST 83 H ALT 36 Alkaline Phosphatase 65 Ammonia Total Protein 5.2 L Albumin 2.0 L Globulin 3.1 Albumin/Globulin Ratio 0.6 L Urine Opiates Screen Urine Methadone Screen Ur Barbiturates Screen Ur Phencyclidine Scrn Ur Amphetamines Screen U Benzodiazepines Scrn U Oth Cocaine Metabols U Cannabinoids Screen Hepatitis A IgM Ab Hep Bs Antigen Hep B Core IgM Ab Hepatitis C Antibody Blood Type Antibody Screen Attending/Attestation - Attestation I have personally seen and examined this patient.: Yes I have fully participated in the care of the patient.: Yes I have reviewed all pertinent clinical information: Yes
[2018-01-02] MEDS: Octreotide 1,250 MCG in Dextrose 5% In Water 250 ML IV SCH (09:50)
[2018-01-02] MEDS: Thiamine 100 mg/ml Inj IV SCH (10:04)
--- NOTE | 2018-01-02 10:32 | CP.PCM.CON ---
History of Present Illness - History of Present Illness History of Present Illness: This is a 42 year old man admitted with rectal bleeding and vomiting blood. Patient has a history of alcoholism, alcoholic cirrhosis, ascites and variceal bleeding. He was hospitalized in [place] in Aug, 2017, at which time the varices were ligated and paracentesis was performed. Two diuretics and lactulose were prescribed, but he has been non-compliant with the medications. He was briefly hospitalized at [facility] in early December,, for gallstones, and signed out AMA. He presented to 12/11/2017 with hematemesis and melena. Hemoglobin at that time was 8.3. Sonogram 12/11/2017 confirmed the presence of multiple gallstones along with thickening of the GB wall to 4.7 mm, pericholecystic fluid, and splenomegaly. EGD 12/11/2017 showed grade I varices, LA grade B esophagitis, and non-erosive gastritis. He was discharged on 2017. Patient reports recent beer and marijuana use. He noted sudden onset of black stools, weakness and extreme thirst on the day before admission. Within a few hours, vomiting of coffee grounds material began and continued approximately every hour. EMS was called, and they noted that the vomitus was bright red. In the ER, BP was 95/44, pulse 90, and blood work showed HGB 5.6, platelet count 115,000, PT30.2 with INR 2.8. Other labs included TBILI 4.2 (was 10.3 on 12/12/2017), AST 76 (185), ALT 37 (56), ALKP 66 (104). Albumin is 2.0. Review of Systems - Constitutional Constitutional: Weakness. absent: Fever - Cardiovascular Cardiovascular: absent: Chest Pain - Respiratory Respiratory: absent: Cough, Dyspnea - Gastrointestinal Gastrointestinal: Heartburn, Hematemesis, Melena, Nausea, Vomiting. absent: Abdominal Pain, Constipation, Dysphagia - Integumentary Integumentary: absent: Rash - Neurological Neurological: Weakness. absent: Numbness, Tingling Past Patient History - Infectious Disease Hx of Infectious Diseases: None - Past Medical History & Family History Past Medical History?: Yes - Past Social History Smoking Status: Light Smoker < 10 Cigarettes Daily - CARDIAC Hx Cardiac Disorders: No - PULMONARY Hx Pneumonia: Yes - NEUROLOGICAL Hx Neurological Disorder: No - HEENT Hx HEENT Problems: Yes Other/Comment: eye sight getting blurry, need to be checked - RENAL Hx Chronic Kidney Disease: No - ENDOCRINE/METABOLIC Hx Endocrine Disorders: No - HEMATOLOGICAL/ONCOLOGICAL Hx Human Immunodeficiency Virus (HIV): No - INTEGUMENTARY Hx Dermatological Problems: No - MUSCULOSKELETAL/RHEUMATOLOGICAL Hx Musculoskeletal Disorders: No - GASTROINTESTINAL Hx Gall Bladder Disease: Yes Hx Gastritis: Yes - GENITOURINARY/GYNECOLOGICAL Hx Genitourinary Disorders: No - PSYCHIATRIC Hx Substance Use: Yes (SOMETIMES) - SURGICAL HISTORY Hx Surgeries: Yes Hx Herniorrhaphy: Yes Other/Comment: umbilical hernia repair - ANESTHESIA Hx Anesthesia: Yes Hx Anesthesia Reactions: No Meds Allergies/Adverse Reactions: Allergies Allergy/AdvReac Type Severity Reaction Status Date / Time No Known Allergies Allergy Unverified 01/02/18 06:02 - Medications Medications: Current Medications Sodium Chloride (Sodium Chloride 0.9%) 1,000 mls @ 100 mls/hr IV .Q10H ONE Stop: 01/02/18 16:02 Last Admin: 01/02/18 06:10 Dose: 100 mls/hr Sodium Chloride (Sodium Chloride 0.9%) 1,000 mls @ 100 mls/hr IV .Q10H ONE Stop: 01/02/18 16:10 Last Admin: 01/02/18 06:29 Dose: 100 mls/hr Pantoprazole Sodium 80 mg/ (Sodium Chloride) 100 mls @ 10 mls/hr IVPB .Q10H MIKI PRN Reason: 8 MG/HR Last Admin: 01/02/18 06:28 Dose: 10 mls/hr Folic Acid 1 mg/ Sodium (Chloride) 100.2 mls @ 60 mls/hr IV DAILY MIKI Last Admin: 01/02/18 09:43 Dose: 60 mls/hr Octreotide Acetate 1,250 mcg/ (Dextrose) 252.5 mls @ 10.1 mls/hr IV .Q24H MIKI; 50 MCG/HR PRN Reason: Protocol Last Admin: 01/02/18 09:50 Dose: Not Given Ceftriaxone Sodium 1 gm/ (Sodium Chloride) 100 mls @ 100 mls/hr IVPB DAILY MIKI PRN Reason: Protocol Last Admin: 01/02/18 09:45 Dose: 100 mls/hr Thiamine HCl (Vitamin B1 Inj) 100 mg IV DAILY MIKI Last Admin: 01/02/18 10:04 Dose: 100 mg Physical Exam - Head Exam Head Exam: ATRAUMATIC, NORMOCEPHALIC - Eye Exam Eye Exam: EOMI, PERRL - Neck Exam Neck exam: Negative for: Lymphadenopathy, Thyromegaly - Respiratory Exam Respiratory Exam: NORMAL BREATHING PATTERN. absent: Rales, Rhonchi, Wheezes - Cardiovascular Exam Cardiovascular Exam: REGULAR RHYTHM, +S1, +S2. absent: Gallop, Rubs, Systolic Murmur - GI/Abdominal Exam GI & Abdominal Exam: Normal Bowel Sounds, Soft. absent: Mass, Organomegaly, Tenderness - Rectal Exam Rectal Exam: Deferred - Extremities Exam Extremities exam: Positive for: pedal edema. Negative for: calf tenderness Results - Vital Signs Recent Vital Signs: Last Vital Signs Temp 98.0 F 01/02/18 09:43 Pulse 92 H 01/02/18 09:43 Resp 22 01/02/18 09:43 BP 101/48 L 01/02/18 09:43 Pulse Ox 100 01/02/18 08:00 - Labs Result Diagrams: 01/02/18 06:14 01/02/18 06:14 Labs: Laboratory Results - last 24 hr 01/02/18 01/02/18 01/02/18 05:58 06:14 06:14 WBC 6.6 D RBC 1.84 L Hgb 5.6 L* D Hct 17.2 L MCV 93.7 D MCH 30.4 MCHC 32.5 L RDW 21.3 H Plt Count 115 L D MPV 8.8 Neut % (Auto) 69.2 Lymph % (Auto) 20.9 [place] % (Auto) 8.2 Eos % (Auto) 0.8 Baso % (Auto) 0.9 Neut # (Auto) 4.6 Lymph # (Auto) 1.4 [place] # (Auto) 0.5 Eos # (Auto) 0.1 Baso # (Auto) 0.1 PT 30.2 H INR 2.8 APTT 31 Sodium Potassium Chloride Carbon Dioxide Anion Gap BUN Creatinine Est GFR ( Amer) Est GFR (Non-Af Amer) POC Glucose (mg/dL) 114 H Random Glucose Calcium Total Bilirubin AST ALT Alkaline Phosphatase Ammonia Total Protein Albumin Globulin Albumin/Globulin Ratio Stool Occult Blood Alcohol, Quantitative Blood Type Antibody Screen 01/02/18 01/02/18 01/02/18 06:14 06:15 06:20 WBC RBC Hgb Hct MCV MCH MCHC RDW Plt Count MPV Neut % (Auto) Lymph % (Auto) [place] % (Auto) Eos % (Auto) Baso % (Auto) Neut # (Auto) Lymph # (Auto) [place] # (Auto) Eos # (Auto) Baso # (Auto) PT INR APTT Sodium 137 Potassium 3.8 Chloride 104 Carbon Dioxide 23 Anion Gap 13 BUN 15 Creatinine 0.7 L Est GFR ( Amer) > 60 Est GFR (Non-Af Amer) > 60 POC Glucose (mg/dL) Random Glucose 109 Calcium 7.9 L Total Bilirubin 4.2 H AST 76 H D ALT 37 Alkaline Phosphatase 66 Ammonia Total Protein 5.1 L Albumin 2.0 L Globulin 3.1 Albumin/Globulin Ratio 0.7 L Stool Occult Blood Positive H Alcohol, Quantitative Blood Type O POSITIVE Antibody Screen Negative 01/02/18 01/02/18 09:50 09:50 WBC RBC Hgb Hct MCV MCH MCHC RDW Plt Count MPV Neut % (Auto) Lymph % (Auto) [place] % (Auto) Eos % (Auto) Baso % (Auto) Neut # (Auto) Lymph # (Auto) [place] # (Auto) Eos # (Auto) Baso # (Auto) PT INR APTT Sodium Potassium Chloride Carbon Dioxide Anion Gap BUN Creatinine Est GFR ( Amer) Est GFR (Non-Af Amer) POC Glucose (mg/dL) Random Glucose Calcium Total Bilirubin AST ALT Alkaline Phosphatase Ammonia 45 H D Total Protein Albumin Globulin Albumin/Globulin Ratio Stool Occult Blood Alcohol, Quantitative < 10 Blood Type Antibody Screen Assessment & Plan (1) Alcoholic cirrhosis Assessment and Plan: Patient has a history of cirrhosis complicated by esophageal varices, splenomegaly and coagulopathy. On the last admission, he did not have significant ascites, and the varices were classified as Grade I, although moderatedly severe esophagitis was present. He is admitted now with hematemesis and melena. He will be resuscitated with IV fluid, packed RBCs and FFP. Treatment with IV pantoprazole and octreotide has been initiated. EGD will be scheduled. Status: Chronic Priority: High
[2018-01-02] MEDS: Folic Acid 1 MG, Thiamine 100 MG, Multivitamin (MVI) 10 ML in Dextrose 5% In Water 1,00... IV SCH (13:56)
[2018-01-02 14:29] LABS: MEAN CORPUSCULAR HEMOGLOBIN 30.4 pg (27.0-31.0); MEAN CORPUSCULAR HGB CONC 33.6 g/dL (33.0-37.0); MEAN PLATELET VOLUME 8.5 fL (7.2-11.7); RBC 1.86 Mil/uL (4.40-5.90); RED CELL DISTRIBUTION WIDTH 19.1 % (11.5-14.5); WHITE BLOOD COUNT 5.4 K/uL (4.8-10.8)
[2018-01-02 14:36] LABS: HEMOGLOBIN 5.7 g/dL (12.0-18.0); MEAN CELL VOLUME 90.7 fL (80.0-94.0)
[2018-01-02 14:39] LABS: INR 2.3; PROTHROMBIN TIME 25.4 SECONDS (9.7-12.2)
[2018-01-02 14:48] LABS: BARBITURATES, UR NEGATIVE (NEGATIVE); OPIATES, UR NEGATIVE (NEGATIVE); PHENCYCLIDINE, UR NEGATIVE (NEGATIVE)
[2018-01-02 14:50] LABS: BENZODIAZEPINES, UR POSITIVE (NEGATIVE)
[2018-01-02] MEDS ORDERED: Phytonadione 10 mg/ml Inj (Adult) IV STA (14:55)
[2018-01-02 20:15] LABS: HEMOGLOBIN 6.8 g/dL (12.0-18.0); MEAN CELL VOLUME 89.9 fL (80.0-94.0); MEAN CORPUSCULAR HGB CONC 33.4 g/dL (33.0-37.0); MEAN PLATELET VOLUME 8.3 fL (7.2-11.7); RBC 2.27 Mil/uL (4.40-5.90); RED CELL DISTRIBUTION WIDTH 17.3 % (11.5-14.5); WHITE BLOOD COUNT 5.1 K/uL (4.8-10.8)
[2018-01-02 20:32] LABS: PROTHROMBIN TIME 21.5 SECONDS (9.7-12.2)
[2018-01-03] MEDS: Pantoprazole 80 MG in Sodium Chloride 0.9% 100 ML IVPB SCH ×3 (02:49→22:28)
[2018-01-03 06:43] LABS: HEMOGLOBIN 7.6 g/dL (12.0-18.0); MEAN CELL VOLUME 90.6 fL (80.0-94.0); MEAN CORPUSCULAR HEMOGLOBIN 30.5 pg (27.0-31.0); MEAN CORPUSCULAR HGB CONC 33.7 g/dL (33.0-37.0); MEAN PLATELET VOLUME 9.1 fL (7.2-11.7); RBC 2.49 Mil/uL (4.40-5.90); RED CELL DISTRIBUTION WIDTH 17.2 % (11.5-14.5); WHITE BLOOD COUNT 3.7 K/uL (4.8-10.8)
[2018-01-03 06:47] LABS: INR 2.1; PROTHROMBIN TIME 22.9 SECONDS (9.7-12.2)
[2018-01-03 07:06] LABS: ALB/GLOB RATIO 0.6 (1.0-2.1); ALT/SGPT 36 U/L (21-72); AST/SGOT 83 U/L (17-59); BLOOD UREA NITROGEN 18 mg/dL (9-20); CALCIUM 7.4 mg/dl (8.6-10.4); GFR NON-AFRICAN AMERICAN > 60
[2018-01-03] MEDS ORDERED: Midazolam 2 MG/2 ML VIAL ONE (08:06)
[2018-01-03] MEDS ORDERED: Propofol 10 mg/ml Inj (20 ML) ONE ×2 (08:07→08:24)
[2018-01-03] MEDS ORDERED: Etomidate 20 mg/10ml Inj IV ONE (08:47)
[2018-01-03] MEDS: Thiamine 100 mg/ml Inj IV SCH (10:07)
[2018-01-03 11:22] LABS: HEPATITIS B SURFACE AG Negative (NEGATIVE)
[2018-01-03 11:27] LABS: HEPATITIS A IGM NEGATIVE (NEGATIVE)
[2018-01-03 11:41] LABS: HEPATITIS C ANTIBODY NEGATIVE (NEGATIVE)
--- NOTE | 2018-01-03 11:55 | CP.CCUPN ---
"CCU Subjective - Physician Review Events Since Last Encounter (Free Text): 01/03/18 11:55 Patient 42-year-old male with history of esophageal varices, chronic liver disease, gallstone, alcoholic abuse. Patient admitted to the hospital with rectal bleeding, as well as bleeding with vomiting. Patient hemoglobin was very low. He was hospitalized to the ICU because of the upper GI bleed, in the setting of liver disease and esophageal varices. Patient also severely jaundiced with recent alcohol intake Patient received 4 units of blood transition and 4 units of FFP yesterday Today patient also underwent upper endoscopy showing evidence of received gastritis, hiatus hernia, and a Marsha-Bustamante tear. Patient hemoglobin still on the low side. Elevated ammonia level noted Clinical examination now patient is somewhat drowsy and sleepy, he received a sedation for upper endoscopy. Ammonia level is also on the high side| Chest good air entry Abdominal distention noted, edema bilaterally in the legs noted Assessment: 42 male with a esophageal varices, alcoholic liver disease admitted with upper GI bleed Marsha Carina tear acute. Transfusion now ongoing. Hepatic encephalopathy likely. Continue to monitor. Lactulose. PPI. Sandostatin drip. We'll continue to monitor in ICU Critical Care Time Spent (in minutes): 45 CCU Objective - Vital Signs / Intake & Output Vital Signs (Last 4 hours): Vital Signs Temp Pulse Resp BP Pulse Ox 01/03/18 11:01 85 16 99/66 L 96 01/03/18 11:00 97.8 F 81 12 99/66 L 96 01/03/18 10:31 72 11 L 100/60 98 01/03/18 10:30 97.9 F 74 20 100/60 98 01/03/18 10:16 75 12 109/70 96 01/03/18 10:15 97.9 F 80 18 109/70 98 01/03/18 10:02 73 11 L 100/67 96 01/03/18 10:00 97.8 F 75 11 L 100/67 96 01/03/18 09:47 76 16 118/73 96 01/03/18 09:45 97.6 F 78 20 118/73 98 01/03/18 09:32 79 11 L 123/58 L 99 01/03/18 09:30 97.8 F 76 20 123/58 L 98 01/03/18 09:29 81 100 Intake and Output (Last 8hrs): Intake & Output 01/02/18 01/03/18 01/03/18 22:59 06:59 14:59 Intake Total 2810 1793 800 Output Total 400 400 450 Balance 2410 1393 350 Weight 288 lb Intake: IV 500 Intake, IV Amount 1060 985 300 Left Antecubital 300 Right Antecubital 600 825 200 Right Hand # 22 80 80 50 Right Hand #20 80 80 50 Blood Product 1750 608 Apheresis Rbc Cp2d As3 Lr 283 1st Unit [id number] Red Blood Cells Cpd As1 0 325 Lr Unit [id number] Red Blood Cells Cpd As1 325 Lr Unit [id number] Red Blood Cells Cpd As1 325 Lr Unit [id number] Other 200 Apheresis Rbc Cp2d As3 Lr 100 1st Unit [id number] Red Blood Cells Cpd As1 100 Lr Unit [id number] Output: Urine 400 400 450 Urine, Voided 400 400 450 Other: # Bowel Movements 0 - Medications Active Medications: Active Medications Generic Name Dose Route Start Last Admin Trade Name Freq PRN Reason Stop Dose Admin Pantoprazole Sodium 80 mg/ 100 mls @ 10 mls/hr 01/02/18 06:30 01/03/18 02:49 Sodium Chloride IVPB 10 mls/hr .Q10H MIKI Administration 8 MG/HR Folic Acid 1 mg/ Sodium 100.2 mls @ 60 mls/hr 01/02/18 10:00 01/03/18 10:06 Chloride IV 60 mls/hr DAILY MIKI Administration Octreotide Acetate 1,250 mcg/ 252.5 mls @ 10.1 mls/hr 01/02/18 08:32 09:50 Dextrose IV Not Given .Q24H MIKI Protocol 50 MCG/HR Ceftriaxone Sodium 1 gm/ 100 mls @ 100 mls/hr 01/02/18 10:00 01/03/18 10:06 Sodium Chloride IVPB 100 mls/hr DAILY MIKI Administration Protocol Folic Acid 1 mg/ Thiamine HCl 1,011.2 mls @ 100 mls/hr 01/02/18 14:00 13:56 100 mg/ Multivitamins/Vitamin IV 100 mls/hr C 10 ml/ Dextrose Q24H MIKI Administration Lorazepam 1 mg 01/02/18 12:52 Ativan IVP Q6H PRN Symptoms of alcohol withdrawl Thiamine HCl 100 mg 01/02/18 10:00 01/03/18 10:07 Vitamin B1 Inj IV 100 mg DAILY MIKI Administration - Patient Studies Lab Studies: Microbiology Studies 01/02/18 09:30 Blood Culture - Preliminary Blood NO GROWTH AFTER 24 HOURS 01/02/18 09:00 Blood Culture - Preliminary Blood NO GROWTH AFTER 24 HOURS Lab Studies 01/03/18 01/03/18 01/03/18 Range/Units 06:36 06:36 06:33 WBC 3.7 L (4.8-10.8) K/uL RBC 2.49 L (4.40-5.90) Mil/uL Hgb 7.6 L (12.0-18.0) g/dL Hct 22.5 L (35.0-51.0) % MCV 90.6 (80.0-94.0) fL MCH 30.5 (27.0-31.0) pg MCHC 33.7 (33.0-37.0) g/dL RDW 17.2 H (11.5-14.5) % Plt Count 58 L D (130-400) K/uL MPV 9.1 (7.2-11.7) fL PT 22.9 H (9.7-12.2) SECONDS INR 2.1 APTT (21-34) SECONDS Sodium 132 (132-148) mmol/L Potassium 3.6 (3.6-5.2) mmol/L Chloride 103 (98-107) mmol/L Carbon Dioxide 21 L (22-30) mmol/L Anion Gap 12 (10-20) BUN 18 (9-20) mg/dL Creatinine 0.7 L (0.8-1.5) mg/dL Est GFR ( Amer) > 60 Est GFR (Non-Af Amer) > 60 Random Glucose 259 H (75-110) mg/dL Calcium 7.4 L (8.6-10.4) mg/dl Magnesium 1.8 (1.6-2.3) mg/dL Total Bilirubin 5.3 H (0.2-1.3) mg/dL AST 83 H (17-59) U/L ALT 36 (21-72) U/L Alkaline Phosphatase 65 (38-126) U/L Ammonia (9-33) umol/L Total Protein 5.2 L (6.3-8.3) g/dL Albumin 2.0 L (3.5-5.0) g/dL Globulin 3.1 (2.2-3.9) gm/dL Albumin/Globulin Ratio 0.6 L (1.0-2.1) Urine Opiates Screen (NEGATIVE) Urine Methadone Screen (NEGATIVE) Ur Barbiturates Screen (NEGATIVE) Ur Phencyclidine Scrn (NEGATIVE) Ur Amphetamines Screen (NEGATIVE) U Benzodiazepines Scrn (NEGATIVE) U Oth Cocaine Metabols (NEGATIVE) U Cannabinoids Screen (NEGATIVE) Hepatitis A IgM Ab (NEGATIVE) Hep Bs Antigen (NEGATIVE) Hepatitis C Antibody (NEGATIVE) Blood Type Antibody Screen 01/03/18 01/03/18 01/02/18 Range/Units 06:33 06:33 20:06 WBC (4.8-10.8) K/uL RBC (4.40-5.90) Mil/uL Hgb (12.0-18.0) g/dL Hct (35.0-51.0) % MCV (80.0-94.0) fL MCH (27.0-31.0) pg MCHC (33.0-37.0) g/dL RDW (11.5-14.5) % Plt Count (130-400) K/uL MPV (7.2-11.7) fL PT 21.5 H (9.7-12.2) SECONDS INR 2.0 APTT 32 D (21-34) SECONDS Sodium (132-148) mmol/L Potassium (3.6-5.2) mmol/L Chloride (98-107) mmol/L Carbon Dioxide (22-30) mmol/L Anion Gap (10-20) BUN (9-20) mg/dL Creatinine (0.8-1.5) mg/dL Est GFR ( Amer) Est GFR (Non-Af Amer) Random Glucose (75-110) mg/dL Calcium (8.6-10.4) mg/dl Magnesium (1.6-2.3) mg/dL Total Bilirubin (0.2-1.3) mg/dL AST (17-59) U/L ALT (21-72) U/L Alkaline Phosphatase (38-126) U/L Ammonia 107 H D (9-33) umol/L Total Protein (6.3-8.3) g/dL Albumin (3.5-5.0) g/dL Globulin (2.2-3.9) gm/dL Albumin/Globulin Ratio (1.0-2.1) Urine Opiates Screen (NEGATIVE) Urine Methadone Screen (NEGATIVE) Ur Barbiturates Screen (NEGATIVE) Ur Phencyclidine Scrn (NEGATIVE) Ur Amphetamines Screen (NEGATIVE) U Benzodiazepines Scrn (NEGATIVE) U Oth Cocaine Metabols (NEGATIVE) U Cannabinoids Screen (NEGATIVE) Hepatitis A IgM Ab Negative (NEGATIVE) Hep Bs Antigen Negative (NEGATIVE) Hepatitis C Antibody Negative (NEGATIVE) Blood Type Antibody Screen 01/02/18 01/02/18 01/02/18 Range/Units 20:06 14:22 14:22 WBC 5.1 5.4 (4.8-10.8) K/uL RBC 2.27 L 1.86 L (4.40-5.90) Mil/uL Hgb 6.8 L 5.7 L* (12.0-18.0) g/dL Hct 20.4 L 16.9 L (35.0-51.0) % MCV 89.9 90.7 D (80.0-94.0) fL MCH 30.0 30.4 (27.0-31.0) pg MCHC 33.4 33.6 (33.0-37.0) g/dL RDW 17.3 H 19.1 H (11.5-14.5) % Plt Count 79 L 77 L D (130-400) K/uL MPV 8.3 8.5 (7.2-11.7) fL PT 25.4 H (9.7-12.2) SECONDS INR 2.3 D APTT 38 H D (21-34) SECONDS Sodium (132-148) mmol/L Potassium (3.6-5.2) mmol/L Chloride (98-107) mmol/L Carbon Dioxide (22-30) mmol/L Anion Gap (10-20) BUN (9-20) mg/dL Creatinine (0.8-1.5) mg/dL Est GFR ( Amer) Est GFR (Non-Af Amer) Random Glucose (75-110) mg/dL Calcium (8.6-10.4) mg/dl Magnesium (1.6-2.3) mg/dL Total Bilirubin (0.2-1.3) mg/dL AST (17-59) U/L ALT (21-72) U/L Alkaline Phosphatase (38-126) U/L Ammonia (9-33) umol/L Total Protein (6.3-8.3) g/dL Albumin (3.5-5.0) g/dL Globulin (2.2-3.9) gm/dL Albumin/Globulin Ratio (1.0-2.1) Urine Opiates Screen (NEGATIVE) Urine Methadone Screen (NEGATIVE) Ur Barbiturates Screen (NEGATIVE) Ur Phencyclidine Scrn (NEGATIVE) Ur Amphetamines Screen (NEGATIVE) U Benzodiazepines Scrn (NEGATIVE) U Oth Cocaine Metabols (NEGATIVE) U Cannabinoids Screen (NEGATIVE) Hepatitis A IgM Ab (NEGATIVE) Hep Bs Antigen (NEGATIVE) Hepatitis C Antibody (NEGATIVE) Blood Type Antibody Screen 01/02/18 01/02/18 01/02/18 Range/Units 14:22 06:20 06:14 WBC (4.8-10.8) K/uL RBC (4.40-5.90) Mil/uL Hgb (12.0-18.0) g/dL Hct (35.0-51.0) % MCV (80.0-94.0) fL MCH (27.0-31.0) pg MCHC (33.0-37.0) g/dL RDW (11.5-14.5) % Plt Count (130-400) K/uL MPV (7.2-11.7) fL PT (9.7-12.2) SECONDS INR APTT (21-34) SECONDS Sodium 137 (132-148) mmol/L Potassium 3.8 (3.6-5.2) mmol/L Chloride 104 (98-107) mmol/L Carbon Dioxide 23 (22-30) mmol/L Anion Gap 13 (10-20) BUN 15 (9-20) mg/dL Creatinine 0.7 L (0.8-1.5) mg/dL Est GFR ( Amer) > 60 Est GFR (Non-Af Amer) > 60 Random Glucose 109 (75-110) mg/dL Calcium 7.9 L (8.6-10.4) mg/dl Magnesium 1.8 (1.6-2.3) mg/dL Total Bilirubin 4.2 H (0.2-1.3) mg/dL AST 76 H D (17-59) U/L ALT 37 (21-72) U/L Alkaline Phosphatase 66 (38-126) U/L Ammonia (9-33) umol/L Total Protein 5.1 L (6.3-8.3) g/dL Albumin 2.0 L (3.5-5.0) g/dL Globulin 3.1 (2.2-3.9) gm/dL Albumin/Globulin Ratio 0.7 L (1.0-2.1) Urine Opiates Screen Negative (NEGATIVE) Urine Methadone Screen Negative (NEGATIVE) Ur Barbiturates Screen Negative (NEGATIVE) Ur Phencyclidine Scrn Negative (NEGATIVE) Ur Amphetamines Screen Negative (NEGATIVE) U Benzodiazepines Scrn Positive (NEGATIVE) U Oth Cocaine Metabols Negative (NEGATIVE) U Cannabinoids Screen Positive H (NEGATIVE) Hepatitis A IgM Ab (NEGATIVE) Hep Bs Antigen (NEGATIVE) Hepatitis C Antibody (NEGATIVE) Blood Type O POSITIVE Antibody Screen Negative Laboratory Results - last 24 hr 01/02/18 01/02/18 01/02/18 06:14 06:20 14:22 WBC RBC Hgb Hct MCV MCH MCHC RDW Plt Count MPV PT INR APTT Sodium 137 Potassium 3.8 Chloride 104 Carbon Dioxide 23 Anion Gap 13 BUN 15 Creatinine 0.7 L Est GFR ( Amer) > 60 Est GFR (Non-Af Amer) > 60 Random Glucose 109 Calcium 7.9 L Magnesium 1.8 Total Bilirubin 4.2 H AST 76 H D ALT 37 Alkaline Phosphatase 66 Ammonia Total Protein 5.1 L Albumin 2.0 L Globulin 3.1 Albumin/Globulin Ratio 0.7 L Urine Opiates Screen Negative Urine Methadone Screen Negative Ur Barbiturates Screen Negative Ur Phencyclidine Scrn Negative Ur Amphetamines Screen Negative U Benzodiazepines Scrn Positive U Oth Cocaine Metabols Negative U Cannabinoids Screen Positive H Hepatitis A IgM Ab Hep Bs Antigen Hepatitis C Antibody Blood Type O POSITIVE Antibody Screen Negative 01/02/18 01/02/18 01/02/18 14:22 14:22 20:06 WBC 5.4 5.1 RBC 1.86 L 2.27 L Hgb 5.7 L* 6.8 L Hct 16.9 L 20.4 L MCV 90.7 D 89.9 MCH 30.4 30.0 MCHC 33.6 33.4 RDW 19.1 H 17.3 H Plt Count 77 L D 79 L MPV 8.5 8.3 PT 25.4 H INR 2.3 D APTT 38 H D Sodium Potassium Chloride Carbon Dioxide Anion Gap BUN Creatinine Est GFR ( Amer) Est GFR (Non-Af Amer) Random Glucose Calcium Magnesium Total Bilirubin AST ALT Alkaline Phosphatase Ammonia Total Protein Albumin Globulin Albumin/Globulin Ratio Urine Opiates Screen Urine Methadone Screen Ur Barbiturates Screen Ur Phencyclidine Scrn Ur Amphetamines Screen U Benzodiazepines Scrn U Oth Cocaine Metabols U Cannabinoids Screen Hepatitis A IgM Ab Hep Bs Antigen Hepatitis C Antibody Blood Type Antibody Screen 01/02/18 01/03/18 01/03/18 20:06 06:33 06:33 WBC RBC Hgb Hct MCV MCH MCHC RDW Plt Count MPV PT 21.5 H INR 2.0 APTT 32 D Sodium Potassium Chloride Carbon Dioxide Anion Gap BUN Creatinine Est GFR ( Amer) Est GFR (Non-Af Amer) Random Glucose Calcium Magnesium Total Bilirubin AST ALT Alkaline Phosphatase Ammonia 107 H D Total Protein Albumin Globulin Albumin/Globulin Ratio Urine Opiates Screen Urine Methadone Screen Ur Barbiturates Screen Ur Phencyclidine Scrn Ur Amphetamines Screen U Benzodiazepines Scrn U Oth Cocaine Metabols U Cannabinoids Screen Hepatitis A IgM Ab Negative Hep Bs Antigen Negative Hepatitis C Antibody Negative Blood Type Antibody Screen 01/03/18 01/03/18 01/03/18 06:33 06:36 06:36 WBC 3.7 L RBC 2.49 L Hgb 7.6 L Hct 22.5 L MCV 90.6 MCH 30.5 MCHC 33.7 RDW 17.2 H Plt Count 58 L D MPV 9.1 PT 22.9 H INR 2.1 APTT Sodium 132 Potassium 3.6 Chloride 103 Carbon Dioxide 21 L Anion Gap 12 BUN 18 Creatinine 0.7 L Est GFR ( Amer) > 60 Est GFR (Non-Af Amer) > 60 Random Glucose 259 H Calcium 7.4 L Magnesium 1.8 Total Bilirubin 5.3 H AST 83 H ALT 36 Alkaline Phosphatase 65 Ammonia Total Protein 5.2 L Albumin 2.0 L Globulin 3.1 Albumin/Globulin Ratio 0.6 L Urine Opiates Screen Urine Methadone Screen Ur Barbiturates Screen Ur Phencyclidine Scrn Ur Amphetamines Screen U Benzodiazepines Scrn U Oth Cocaine Metabols U Cannabinoids Screen Hepatitis A IgM Ab Hep Bs Antigen Hepatitis C Antibody Blood Type Antibody Screen Fingerstick Blood Sugar Results: 114 Critical Care Progress Note - Nutrition Nutrition: Nutrition Category Date Time Status NPO Diet [DIET] Diets 01/02/18 Breakfast Active"
[2018-01-03 11:56] LABS: HEPATITIS B CORE AB NEGATIVE (NEGATIVE)
[2018-01-03] MEDS: Octreotide 1,250 MCG in Dextrose 5% In Water 250 ML IV SCH (12:39)
--- NOTE | 2018-01-03 18:08 | CP.PCM.PN ---
Subjective - Date & Time of Evaluation Date of Evaluation: 01/03/18 Time of Evaluation: 09:30 - Subjective Subjective: Hospitalist Progress Note Patient was seen and examined at 9:30 AM 01/03/18 ICU Bed 4 42 year old male who was admitted 01/02/18 for evaluation of likely Upper GI Bleeding. Patient was admitted to [facility] (Former[facility]3] on 12/11/17 through 12/18/17 at which time he was diagnosed with Esophageal Varices. Please see Assessment and Plans below for further details. Currently upon FULL ROS: Currently on bedpan and having a bowel movement Feels week all over and lightheaded NO chest pain NO SOB NO Abdominal Pain NO N/V States that his last drink was 3 days ago and that he has now quit General: Was asleep but arousable but then falls back to sleep if not spoken to during exam, He was awake enough to follow instructions during exam and questions HEENT: NCA, EOMI, PERRLA, NO pharyngeal erythema/exudate, NO lymphadenopathy, NO thyromegaly Cardio: NS1 and NS2, NO M/R/G Resp: CTA B/L, NO R/R/W GI: BSx4 reduced, Distention, Soft, Liver and Spleen palpation not attempted, NT , NO guarding/rebound tenderness Ext: Pulses are strong and equal bilateral UE and LE, 2+ pitting edema bilateral LE from feet to knees, NON-pitting edema of the bilateral lower arms Neuro: CN II through XII were grossly intact Assessment and Plan: 1). Upper GI Bleed Secondary to Marsha Bustamante Tear and Hx of Esophageal Varices Upper EGD performed by GI Dr. Holly on morning 01/03/18: Marsha Bustamante Tear with stigmata of bleeding that did not respond to Epinephrine Injection but was then bandded. Also showed small hiatal hernia. Patient continues to receive PRBC and FFP in the ICU Octreotide 50 mcg/hr IV Protonix 8 mg/hr IV NPO Please note patient was also hospitalized at a hospital in [place] in August 2017 for bleeding Esophageal Varices and they were ligated at that time. Patient states that he is now living in [place]. 2). Hx Chronic Cholecystitis U/S Abdomen last admission here at [facility] ([facility]3] showed cirrhotic liver, mulitple gallstones with thickened gallbladder wall and mild pericholecystic fluid with normal bile duct However not a good surgical candidate and GI recommended lap patricia when his liver disease was more stable Also please note that prior to [facility]3] admission on 12/11/17 patient was hospitalized for this issue in early December but then signed out AMA 3). Hx Liver Cirrhosis Ceftriaxone 1 gm IV 1x/day Amonia level elevated at 107 Will need to follow up with GI through [facility] as an outpatient 4). Hx Alcohol Abuse Counseled and states that he has not quit since his current admission Folic Acid and Thiamine IV 5). Hx Nicotine Abuse Will start Nicotine Patch once more stable 6). Hx MultiDrugAbuse: PCP, Marijuana 7). Prophylaxis Protonix 8 mg/hr IV NO anticoagulation secondary to GI Bleed SCDs NPO for now F/U Blood Culture F/U Urine Culture Todd Cortés D.O. Objective - Vital Signs/Intake and Output Vital Signs (last 24 hours): Temp Pulse Resp BP Pulse Ox 98.4 F 77 14 116/65 100 01/03/18 15:15 01/03/18 17:02 01/03/18 17:02 01/03/18 17:02 01/03/18 17:02 Intake and Output: 01/03/18 01/03/18 06:59 18:59 Intake Total 2373 1309 Output Total 800 650 Balance 1573 659 - Medications Medications: Current Medications Pantoprazole Sodium 80 mg/ (Sodium Chloride) 100 mls @ 10 mls/hr IVPB .Q10H MIKI PRN Reason: 8 MG/HR Last Admin: 01/03/18 16:30 Dose: 10 mls/hr Folic Acid 1 mg/ Sodium (Chloride) 100.2 mls @ 60 mls/hr IV DAILY MIKI Last Admin: 01/03/18 10:06 Dose: 60 mls/hr Octreotide Acetate 1,250 mcg/ (Dextrose) 252.5 mls @ 10.1 mls/hr IV .Q24H MIKI; 50 MCG/HR PRN Reason: Protocol Last Admin: 01/03/18 12:39 Dose: 10.1 mls/hr Ceftriaxone Sodium 1 gm/ (Sodium Chloride) 100 mls @ 100 mls/hr IVPB DAILY MIKI PRN Reason: Protocol Last Admin: 01/03/18 10:06 Dose: 100 mls/hr Folic Acid 1 mg/ Thiamine HCl 100 mg/ Multivitamins/Vitamin C 10 ml/ Dextrose 1 ,011.2 mls @ 100 mls/hr IV Q24H [facility] Last Admin: 01/02/18 13:56 Dose: 100 mls/hr Lorazepam (Ativan) 1 mg IVP Q6H PRN PRN Reason: Symptoms of alcohol withdrawl Thiamine HCl (Vitamin B1 Inj) 100 mg IV DAILY [facility] Last Admin: 01/03/18 10:07 Dose: 100 mg - Labs Labs: 01/03/18 06:36 01/03/18 06:33 PT 22.9 SECONDS (9.7-12.2) H 01/03/18 06:36 INR 2.1 01/03/18 06:36 APTT 32 SECONDS (21-34) D 01/02/18 20:06
[2018-01-03] MEDS: Folic Acid 1 MG, Thiamine 100 MG, Multivitamin (MVI) 10 ML in Dextrose 5% In Water 1,00... IV SCH (18:13)
[2018-01-04] MEDS: Pantoprazole 80 MG in Sodium Chloride 0.9% 100 ML IVPB SCH ×2 (00:39→17:20)
[2018-01-04 06:16] LABS: HEMOGLOBIN 8.4 g/dL (12.0-18.0); MEAN CELL VOLUME 89.3 fL (80.0-94.0); MEAN CORPUSCULAR HEMOGLOBIN 31.2 pg (27.0-31.0); MEAN CORPUSCULAR HGB CONC 34.9 g/dL (33.0-37.0); MEAN PLATELET VOLUME 8.1 fL (7.2-11.7); RBC 2.7 Mil/uL (4.40-5.90); RED CELL DISTRIBUTION WIDTH 16.6 % (11.5-14.5); WHITE BLOOD COUNT 4.3 K/uL (4.8-10.8)
[2018-01-04 06:29] LABS: ALB/GLOB RATIO 0.7 (1.0-2.1); ALBUMIN 2.2 g/dL (3.5-5.0); ALT/SGPT 40 U/L (21-72); AST/SGOT 79 U/L (17-59); BLOOD UREA NITROGEN 16 mg/dL (9-20); CALCIUM 7.8 mg/dl (8.6-10.4); GFR NON-AFRICAN AMERICAN > 60
[2018-01-04] MEDS ORDERED: Dexmedetomidine Hydrochloride 200 MCG in Sodium Chloride 0.9% 48 ML IV PRN (06:32)
[2018-01-04] MEDS: Octreotide 1,250 MCG in Dextrose 5% In Water 250 ML IV SCH ×2 (08:30→19:18)
[2018-01-04] MEDS: Thiamine 100 mg/ml Inj IV SCH (09:58)
[2018-01-04] MEDS ORDERED: Potassium Chloride 20 mEq/15 ml LIQ UD PO ONE (10:30)
--- NOTE | 2018-01-04 10:30 | CP.CCUPN ---
<Bora Palmer - Last Filed: 01/04/18 16:00> CCU Subjective - Physician Review Subjective (Free Text): 01/04/18 11:22 ICU progress note Patient seen and examined at bedside. He is somnolent, and is falling asleep during the exam. Patient was reportedly more agitated overnight. CCU Objective - Vital Signs / Intake & Output Vital Signs (Last 4 hours): Vital Signs Pulse Resp BP Pulse Ox 01/04/18 10:07 80 10 L 107/50 L 100 01/04/18 10:00 64 8 L 100 01/04/18 09:00 70 10 L 100 01/04/18 08:00 82 100 01/04/18 07:58 82 11 L 103/61 100 01/04/18 07:00 71 16 100 01/04/18 06:58 120/82 Intake and Output (Last 8hrs): Intake & Output 01/03/18 01/04/18 01/04/18 22:59 06:59 14:59 Intake Total 1049 860 80 Output Total 350 200 Balance 699 660 80 Weight 273 lb 12.8 oz Intake: Intake, IV Amount 660 860 80 Right Antecubital 500 700 Right Hand # 22 80 80 40 Right Hand #20 80 80 40 Oral 0 0 0 Blood Product 289 Apheresis Rbc Cp2d As3 Lr 289 1st Unit [id number] Other 100 Apheresis Rbc Cp2d As3 Lr 100 1st Unit [id number] Output: Urine 350 200 Urine, Voided 350 200 Other: # Voids Urine, Voided 0 0 0 # Bowel Movements 0 0 0 - Physical Exam Head: Positive for: Atraumatic, Normocephalic Extroacular Muscles: Positive for: EOMI Mouth: Positive for: Moist Mucous Membranes Respiratory/Chest: Positive for: Clear to Auscultation, Good Air Exchange. Negative for: Respiratory Distress, Accessory Muscle Use, Wheezes, Rales, Retracting, Rhonchi, Tachypneic Cardiovascular: Positive for: Regular Rate and Rhythm, Normal S1, S2. Negative for: Murmurs Abdomen: Positive for: Distention, Normal Bowel Sounds. Negative for: Tenderness Upper Extremity: Positive for: NORMAL PULSES (Radial pulses) Lower Extremity: Positive for: NORMAL PULSES (dorsalis pedis pulses), Other ( pedal edema bilaterally. ). Negative for: CALF TENDERNESS Skin: Positive for: Warm, Dry, Other (Jaundiced) - Medications Active Medications: Active Medications Generic Name Dose Route Start Last Admin Trade Name Freq PRN Reason Stop Dose Admin Pantoprazole Sodium 80 mg/ 100 mls @ 10 mls/hr 01/02/18 06:30 01/04/18 00:39 Sodium Chloride IVPB 10 mls/hr .Q10H MIKI Administration 8 MG/HR Folic Acid 1 mg/ Sodium 100.2 mls @ 60 mls/hr 01/02/18 10:00 01/04/18 09:58 Chloride IV 60 mls/hr DAILY MIKI Administration Octreotide Acetate 1,250 mcg/ 252.5 mls @ 10.1 mls/hr 01/02/18 08:32 12:39 Dextrose IV 10.1 mls/hr .Q24H MIKI Administration Protocol 50 MCG/HR Ceftriaxone Sodium 1 gm/ 100 mls @ 100 mls/hr 01/02/18 10:00 01/04/18 09:57 Sodium Chloride IVPB 100 mls/hr DAILY MIKI Administration Protocol Folic Acid 1 mg/ Thiamine HCl 1,011.2 mls @ 100 mls/hr 01/02/18 14:00 18:13 100 mg/ Multivitamins/Vitamin IV 100 mls/hr C 10 ml/ Dextrose Q24H MIKI Administration Dexmedetomidine HCl 200 mcg/ 50 mls @ 6.53 mls/hr 01/04/18 06:32 Sodium Chloride IV TITR PRN Agitation Protocol 0.2 MCG/KG/HR Lactulose 20 gm 01/04/18 09:45 01/04/18 10:29 Enulose PO 20 gm Q8 MIKI Administration Lorazepam 1 mg 01/02/18 12:52 01/04/18 03:59 Ativan IVP 1 mg Q6H PRN Administration Symptoms of alcohol withdrawl Potassium Chloride 20 meq 01/04/18 10:30 01/04/18 10:29 Potassium Chloride Oral Soln PO 01/04/18 10:31 20 meq ONCE ONE Administration Thiamine HCl 100 mg 01/02/18 10:00 01/04/18 09:58 Vitamin B1 Inj IV 100 mg DAILY MIKI Administration - Patient Studies Lab Studies: Microbiology Studies 01/02/18 09:30 Blood Culture - Preliminary Blood NO GROWTH AFTER 48 HOURS 01/02/18 09:00 Blood Culture - Preliminary Blood NO GROWTH AFTER 48 HOURS 01/02/18 14:22 Urine Culture - Final Urine 10-50,000 CFU/ML. MULTIPLE SPECIES. PROBABLE CONTAMINATION. 01/02/18 09:49 MRSA Culture (Admit) - Final Naris MRSA NOT DETECTED Lab Studies 01/04/18 01/04/18 01/04/18 Range/Units 06:08 06:08 06:08 WBC 4.3 L (4.8-10.8) K/uL RBC 2.70 L (4.40-5.90) Mil/uL Hgb 8.4 L (12.0-18.0) g/dL Hct 24.1 L (35.0-51.0) % MCV 89.3 (80.0-94.0) fL MCH 31.2 H (27.0-31.0) pg MCHC 34.9 (33.0-37.0) g/dL RDW 16.6 H (11.5-14.5) % Plt Count 67 L (130-400) K/uL MPV 8.1 (7.2-11.7) fL Sodium 138 (132-148) mmol/L Potassium 3.6 (3.6-5.2) mmol/L Chloride 107 (98-107) mmol/L Carbon Dioxide 24 (22-30) mmol/L Anion Gap 10 (10-20) BUN 16 (9-20) mg/dL Creatinine 0.7 L (0.8-1.5) mg/dL Est GFR ( Amer) > 60 Est GFR (Non-Af Amer) > 60 Random Glucose 118 H (75-110) mg/dL Calcium 7.8 L (8.6-10.4) mg/dl Phosphorus 3.0 (2.5-4.5) mg/dL Magnesium 1.9 (1.6-2.3) mg/dL Total Bilirubin 6.8 H (0.2-1.3) mg/dL AST 79 H (17-59) U/L ALT 40 (21-72) U/L Alkaline Phosphatase 70 (38-126) U/L Ammonia 83 H D (9-33) umol/L Total Protein 5.3 L (6.3-8.3) g/dL Albumin 2.2 L (3.5-5.0) g/dL Globulin 3.1 (2.2-3.9) gm/dL Albumin/Globulin Ratio 0.7 L (1.0-2.1) Hepatitis A IgM Ab (NEGATIVE) Hep Bs Antigen (NEGATIVE) Hep B Core IgM Ab (NEGATIVE) Hepatitis C Antibody (NEGATIVE) Blood Type Antibody Screen 01/03/18 01/03/18 01/02/18 Range/Units 11:21 06:33 06:20 WBC (4.8-10.8) K/uL RBC (4.40-5.90) Mil/uL Hgb (12.0-18.0) g/dL Hct (35.0-51.0) % MCV (80.0-94.0) fL MCH (27.0-31.0) pg MCHC (33.0-37.0) g/dL RDW (11.5-14.5) % Plt Count (130-400) K/uL MPV (7.2-11.7) fL Sodium (132-148) mmol/L Potassium (3.6-5.2) mmol/L Chloride (98-107) mmol/L Carbon Dioxide (22-30) mmol/L Anion Gap (10-20) BUN (9-20) mg/dL Creatinine (0.8-1.5) mg/dL Est GFR ( Amer) Est GFR (Non-Af Amer) Random Glucose (75-110) mg/dL Calcium (8.6-10.4) mg/dl Phosphorus (2.5-4.5) mg/dL Magnesium (1.6-2.3) mg/dL Total Bilirubin (0.2-1.3) mg/dL AST (17-59) U/L ALT (21-72) U/L Alkaline Phosphatase (38-126) U/L Ammonia 66 H D (9-33) umol/L Total Protein (6.3-8.3) g/dL Albumin (3.5-5.0) g/dL Globulin (2.2-3.9) gm/dL Albumin/Globulin Ratio (1.0-2.1) Hepatitis A IgM Ab Negative (NEGATIVE) Hep Bs Antigen Negative (NEGATIVE) Hep B Core IgM Ab Negative (NEGATIVE) Hepatitis C Antibody Negative (NEGATIVE) Blood Type O POSITIVE Antibody Screen Negative Laboratory Results - last 24 hr 01/02/18 01/03/18 01/03/18 06:20 06:33 11:21 WBC RBC Hgb Hct MCV MCH MCHC RDW Plt Count MPV Sodium Potassium Chloride Carbon Dioxide Anion Gap BUN Creatinine Est GFR ( Amer) Est GFR (Non-Af Amer) Random Glucose Calcium Phosphorus Magnesium Total Bilirubin AST ALT Alkaline Phosphatase Ammonia 66 H D Total Protein Albumin Globulin Albumin/Globulin Ratio Hepatitis A IgM Ab Negative Hep Bs Antigen Negative Hep B Core IgM Ab Negative Hepatitis C Antibody Negative Blood Type O POSITIVE Antibody Screen Negative 01/04/18 01/04/18 01/04/18 06:08 06:08 06:08 WBC 4.3 L RBC 2.70 L Hgb 8.4 L Hct 24.1 L MCV 89.3 MCH 31.2 H MCHC 34.9 RDW 16.6 H Plt Count 67 L MPV 8.1 Sodium 138 Potassium 3.6 Chloride 107 Carbon Dioxide 24 Anion Gap 10 BUN 16 Creatinine 0.7 L Est GFR ( Amer) > 60 Est GFR (Non-Af Amer) > 60 Random Glucose 118 H Calcium 7.8 L Phosphorus 3.0 Magnesium 1.9 Total Bilirubin 6.8 H AST 79 H ALT 40 Alkaline Phosphatase 70 Ammonia 83 H D Total Protein 5.3 L Albumin 2.2 L Globulin 3.1 Albumin/Globulin Ratio 0.7 L Hepatitis A IgM Ab Hep Bs Antigen Hep B Core IgM Ab Hepatitis C Antibody Blood Type Antibody Screen Fingerstick Blood Sugar Results: 114 Critical Care Progress Note - Nutrition Nutrition: Nutrition Category Date Time Status NPO Diet [DIET] Diets 01/02/18 Breakfast Active Assessment/Plan - Assessment and Plan (Free Text) Assessment: 42 year old male with history of esophageal varices, chronic liver disease, gallstones, alcohol abuse who presented with coffee ground emesis, which progressed to bloody emesis. Patient also noted to be stool occult positive. Patient was noted to have hemoglobin of 5.6, was transfused 5 PRBCs and 4 FFP. Endoscopy revealed Marsha Bustamante tear, esophagitis and small hiatal hernia. Plan: Neuro Somnolent Possible hepatic encephalopathy given ammonia is elevated at 83 today, started on Lactulose 20 Q 8 Ativan 1mg Q 6 PRN, last received overnight Precedex PRN for agitation, was ordered overnight but patient did not receive as he is no longer agitated. Banana bag Continue to monitor mental status UDS positive cannabinoids Cardiovascular BP 107/50 HR 60s EKG NSR 87, prolonged QTc 507 Pulmonary O2 saturating well. 100% on RA GI GI bleed Stool occult positive 01/02/18 EGD: LA Grade B reflux esophagitis, Marsha-Bustamante tear, small hiatal hernia. normal stomach. normal examined duodenum. Possible hepatic encephalopathy given ammonia is elevated at 83 today Lactulose [address] Holly consulted, help appreciated. Protonix drip Octreotide drip Currently NPO Hep panel negative Renal BUN 16 Cr 0.7 I & Os Balance +1569 ml Replete electrolytes as needed, K repleted. ID Rocephin 1g IV Blood culture prelim no growth Urine culture multiple species. no contamination. Nares MRSA not detected. Endo Maintain euglycemia Heme/Onc H 8.4/Hct 24.1 Patient has received PRBCs x5, FFP x4 PPX: On Protonix drip, SCDs Case discussed with Dr. Metzger <Kevin Metzger S - Last Filed: 01/04/18 17:57> CCU Subjective - Physician Review Critical Care Time Spent (in minutes): 35 CCU Objective - Vital Signs / Intake & Output Vital Signs (Last 4 hours): Vital Signs Temp Pulse Resp BP Pulse Ox 01/04/18 16:00 97.3 F L 66 9 L 100 01/04/18 15:58 63 8 L 99/59 L 100 01/04/18 15:00 71 9 L 100 01/04/18 14:58 88 14 108/63 99 01/04/18 14:00 85 11 L 100 01/04/18 13:58 71 10 L 106/60 99 Intake and Output (Last 8hrs): Intake & Output 01/04/18 01/04/18 01/04/18 06:59 14:59 22:59 Intake Total 860 160 60 Output Total 200 0 Balance 660 160 60 Weight 273 lb 12.8 oz Intake: Intake, IV Amount 860 160 60 Right Antecubital 700 Right Hand # 22 80 80 30 Right Hand #20 80 80 30 Oral 0 0 Output: Urine 200 Urine, Voided 200 Stool 0 Other: # Voids Condom 700 Urine, Voided 0 0 # Bowel Movements 0 0 - Medications Active Medications: Active Medications Generic Name Dose Route Start Last Admin Trade Name Freq PRN Reason Stop Dose Admin Pantoprazole Sodium 80 mg/ 100 mls @ 10 mls/hr 01/02/18 06:30 01/04/18 17:20 Sodium Chloride IVPB 10 mls/hr .Q10H MIKI Administration 8 MG/HR Folic Acid 1 mg/ Sodium 100.2 mls @ 60 mls/hr 01/02/18 10:00 01/04/18 09:58 Chloride IV 60 mls/hr DAILY MIKI Administration Octreotide Acetate 1,250 mcg/ 252.5 mls @ 10.1 mls/hr 01/02/18 08:32 12:39 Dextrose IV 10.1 mls/hr .Q24H MIKI Administration Protocol 50 MCG/HR Ceftriaxone Sodium 1 gm/ 100 mls @ 100 mls/hr 01/02/18 10:00 01/04/18 09:57 Sodium Chloride IVPB 100 mls/hr DAILY MIKI Administration Protocol Folic Acid 1 mg/ Thiamine HCl 1,011.2 mls @ 100 mls/hr 01/02/18 14:00 13:42 100 mg/ Multivitamins/Vitamin IV 100 mls/hr C 10 ml/ Dextrose Q24H MIKI Administration Dexmedetomidine HCl 200 mcg/ 50 mls @ 6.53 mls/hr 01/04/18 06:32 Sodium Chloride IV TITR PRN Agitation Protocol 0.2 MCG/KG/HR Lactulose 20 gm 01/04/18 09:45 01/04/18 14:20 Enulose PO 20 gm Q8 MIKI Administration Lorazepam 1 mg 01/02/18 12:52 01/04/18 03:59 Ativan IVP 1 mg Q6H PRN Administration Symptoms of alcohol withdrawl Thiamine HCl 100 mg 01/02/18 10:00 01/04/18 09:58 Vitamin B1 Inj IV 100 mg DAILY MIKI Administration - Patient Studies Lab Studies: Microbiology Studies 01/02/18 09:30 Blood Culture - Preliminary Blood NO GROWTH AFTER 48 HOURS 01/02/18 09:00 Blood Culture - Preliminary Blood NO GROWTH AFTER 48 HOURS 01/02/18 14:22 Urine Culture - Final Urine 10-50,000 CFU/ML. MULTIPLE SPECIES. PROBABLE CONTAMINATION. 01/02/18 09:49 MRSA Culture (Admit) - Final Naris MRSA NOT DETECTED Lab Studies 01/04/18 01/04/18 01/04/18 Range/Units 06:08 06:08 06:08 WBC 4.3 L (4.8-10.8) K/uL RBC 2.70 L (4.40-5.90) Mil/uL Hgb 8.4 L (12.0-18.0) g/dL Hct 24.1 L (35.0-51.0) % MCV 89.3 (80.0-94.0) fL MCH 31.2 H (27.0-31.0) pg MCHC 34.9 (33.0-37.0) g/dL RDW 16.6 H (11.5-14.5) % Plt Count 67 L (130-400) K/uL MPV 8.1 (7.2-11.7) fL Sodium 138 (132-148) mmol/L Potassium 3.6 (3.6-5.2) mmol/L Chloride 107 (98-107) mmol/L Carbon Dioxide 24 (22-30) mmol/L Anion Gap 10 (10-20) BUN 16 (9-20) mg/dL Creatinine 0.7 L (0.8-1.5) mg/dL Est GFR ( Amer) > 60 Est GFR (Non-Af Amer) > 60 Random Glucose 118 H (75-110) mg/dL Calcium 7.8 L (8.6-10.4) mg/dl Phosphorus 3.0 (2.5-4.5) mg/dL Magnesium 1.9 (1.6-2.3) mg/dL Total Bilirubin 6.8 H (0.2-1.3) mg/dL AST 79 H (17-59) U/L ALT 40 (21-72) U/L Alkaline Phosphatase 70 (38-126) U/L Ammonia 83 H D (9-33) umol/L Total Protein 5.3 L (6.3-8.3) g/dL Albumin 2.2 L (3.5-5.0) g/dL Globulin 3.1 (2.2-3.9) gm/dL Albumin/Globulin Ratio 0.7 L (1.0-2.1) Laboratory Results - last 24 hr 01/04/18 01/04/18 01/04/18 06:08 06:08 06:08 WBC 4.3 L RBC 2.70 L Hgb 8.4 L Hct 24.1 L MCV 89.3 MCH 31.2 H MCHC 34.9 RDW 16.6 H Plt Count 67 L MPV 8.1 Sodium 138 Potassium 3.6 Chloride 107 Carbon Dioxide 24 Anion Gap 10 BUN 16 Creatinine 0.7 L Est GFR ( Amer) > 60 Est GFR (Non-Af Amer) > 60 Random Glucose 118 H Calcium 7.8 L Phosphorus 3.0 Magnesium 1.9 Total Bilirubin 6.8 H AST 79 H ALT 40 Alkaline Phosphatase 70 Ammonia 83 H D Total Protein 5.3 L Albumin 2.2 L Globulin 3.1 Albumin/Globulin Ratio 0.7 L Critical Care Progress Note - Nutrition Nutrition: Nutrition Category Date Time Status NPO Diet [DIET] Diets 01/02/18 Breakfast Active Attending/Attestation - Attestation I have personally seen and examined this patient.: Yes I have fully participated in the care of the patient.: Yes I have reviewed all pertinent clinical information: Yes Notes (Text): 01/04/18 17:55 patient seen and examined in the intensive care unit. Being treated for hepatic encephalopathy and GI bleed Started on lactulose Continue banana bag ativan as needed Protonix and octreotide drip Follow-up H&H
[2018-01-04] MEDS: Folic Acid 1 MG, Thiamine 100 MG, Multivitamin (MVI) 10 ML in Dextrose 5% In Water 1,00... IV SCH (13:42)
--- NOTE | 2018-01-04 16:11 | CARD ---
APPROVED REPORT Date of service: 01/02/2018 EKG Measurement Heart [id number] <Conclusion> Normal sinus rhythm Prolonged QT Abnormal ECG
[2018-01-04] MEDS ORDERED: Phytonadione 10 mg/ml Inj (Adult) SC STA (17:17)
--- NOTE | 2018-01-04 17:22 | CP.PCM.PN ---
Subjective - Date & Time of Evaluation Date of Evaluation: 01/04/18 Time of Evaluation: 17:19 - Subjective Subjective: Patient is lethargic but arousable this afternoon. He was sedated with Ativan and Precedex. Objective - Vital Signs/Intake and Output Vital Signs (last 24 hours): Temp Pulse Resp BP Pulse Ox 97.3 F L 67 9 L 99/59 L 100 01/04/18 16:00 01/04/18 16:00 01/04/18 16:00 01/04/18 15:58 01/04/18 16:00 Intake and Output: 01/04/18 01/04/18 06:59 18:59 Intake Total 1340 200 Output Total 550 0 Balance 790 200 - Medications Medications: Current Medications Pantoprazole Sodium 80 mg/ (Sodium Chloride) 100 mls @ 10 mls/hr IVPB .Q10H MIKI PRN Reason: 8 MG/HR Last Admin: 01/04/18 00:39 Dose: 10 mls/hr Folic Acid 1 mg/ Sodium (Chloride) 100.2 mls @ 60 mls/hr IV DAILY MIKI Last Admin: 01/04/18 09:58 Dose: 60 mls/hr Octreotide Acetate 1,250 mcg/ (Dextrose) 252.5 mls @ 10.1 mls/hr IV .Q24H MIKI; 50 MCG/HR PRN Reason: Protocol Last Admin: 01/03/18 12:39 Dose: 10.1 mls/hr Ceftriaxone Sodium 1 gm/ (Sodium Chloride) 100 mls @ 100 mls/hr IVPB DAILY MIKI PRN Reason: Protocol Last Admin: 01/04/18 09:57 Dose: 100 mls/hr Folic Acid 1 mg/ Thiamine HCl 100 mg/ Multivitamins/Vitamin C 10 ml/ Dextrose 1 ,011.2 mls @ 100 mls/hr IV Q24H MIKI Last Admin: 01/04/18 13:42 Dose: 100 mls/hr Dexmedetomidine HCl 200 mcg/ (Sodium Chloride) 50 mls @ 6.53 mls/hr IV TITR PRN ; Protocol; 0.2 MCG/KG/HR PRN Reason: Agitation Lactulose (Enulose) 20 gm PO Q8 MIKI Last Admin: 01/04/18 14:20 Dose: 20 gm Lorazepam (Ativan) 1 mg IVP Q6H PRN PRN Reason: Symptoms of alcohol withdrawl Last Admin: 01/04/18 03:59 Dose: 1 mg Phytonadione (Vitamin K Inj) 10 mg SC STAT STA Stop: 01/04/18 17:18 Thiamine HCl (Vitamin B1 Inj) 100 mg IV DAILY MIKI Last Admin: 01/04/18 09:58 Dose: 100 mg - Labs Labs: 01/04/18 06:08 01/04/18 06:08 PT 22.9 SECONDS (9.7-12.2) H 01/03/18 06:36 INR 2.1 01/03/18 06:36 APTT 32 SECONDS (21-34) D 01/02/18 20:06 - Constitutional Appears: Other - Head Exam Head Exam: ATRAUMATIC, NORMOCEPHALIC - Eye Exam Eye Exam: EOMI, PERRL - Neck Exam Neck Exam: absent: Lymphadenopathy, Thyromegaly - Respiratory Exam Respiratory Exam: NORMAL BREATHING PATTERN. absent: Rales, Rhonchi, Wheezes - Cardiovascular Exam Cardiovascular Exam: REGULAR RHYTHM, +S1, +S2. absent: Gallop, Rubs, Murmur - GI/Abdominal Exam GI & Abdominal Exam: Distended, Soft, Normal Bowel Sounds. absent: Tenderness, Mass, Organomegaly - Rectal Exam Rectal Exam: Deferred - Extremities Exam Extremities Exam: absent: Calf Tenderness, Pedal Edema Assessment and Plan (1) Alcoholic cirrhosis Assessment & Plan: Patient received ativan earlier this morning and has been lethargic since. Hemodynamically, he is stable. The HGB this morning is 8.4. The ammonia level was 83, up from 66. Suggest clear liquid diet and contnue lactulose. Status: Chronic
--- NOTE | 2018-01-04 18:41 | CP.PCM.PN ---
Subjective - Date & Time of Evaluation Date of Evaluation: 01/04/18 Time of Evaluation: 18:15 - Subjective Subjective: Hospitalist Progress Note Patient was seen and examined at 6:15 PM 01/04/18 ICU Bed 4 42 year old male who was admitted 01/02/18 for evaluation of likely Upper GI Bleeding. Patient was admitted to [facility] on 12/11/17 through 12/18/17 at which time he was diagnosed with Esophageal Varices. Please see Assessment and Plans below for further details. My conversation with ICU staff revealed that patient was very agitated on the night of 01/03/18 and therefore had to be placed on Precedex. Because of this he is very somnolent at the time of my exam today and not answering ROS questions or participating in exam. He was also started on Lactulose for elevated Ammonia. His HgB/Hct has remained stable. General: Arousable but falls back to sleep quickly HEENT: NCA, Pupils are equal/round/reactive to light, NO lymphadenopathy, NO thyromegaly Cardio: NS1 and NS2, NO M/R/G Resp: CTA B/L, NO R/R/W GI: BSx4 reduced, Distention, Soft, Liver and Spleen palpation not attempted, NT , NO guarding/rebound tenderness Ext: Pulses are strong and equal bilateral UE and LE, 2+ pitting edema bilateral LE from feet to knees, NON-pitting edema of the bilateral lower arms Neuro: CN II through XII were grossly intact Assessment and Plan: 1). Upper GI Bleed Secondary to Marsha Bustamante Tear and Hx of Esophageal Varices Upper EGD performed by GI Dr. Holly on morning 01/03/18: Marhsa Bustamante Tear with stigmata of bleeding that did not respond to Epinephrine Injection but was then bandded. Also showed small hiatal hernia. Patient received multiple PRBC and FFP in the ICU Octreotide 50 mcg/hr IV Protonix 8 mg/hr IV Clear Liquid Diet Please note patient was also hospitalized at a hospital in [place] in August 2017 for bleeding Esophageal Varices and they were ligated at that time. Patient states that he is now living in [place]. 2). Hx Chronic Cholecystitis U/S Abdomen last admission here at [facility] showed cirrhotic liver, mulitple gallstones with thickened gallbladder wall and mild pericholecystic fluid with normal bile duct However not a good surgical candidate and GI recommended lap patricia when his liver disease was more stable Also please note that prior to [facility] admission on 12/11/17 patient was hospitalized for this issue in early December but then signed out AMA 3). Hx Liver Cirrhosis Ceftriaxone 1 gm IV 1x/day Amonnia level elevated and therefore has been started on Lactulose 20 mg PO Q8H Will need to follow up with GI through [facility] as an outpatient 4). Hx Alcohol Abuse Counseled 01/03/18 and states that he has not quit since his current admission Folic Acid and Thiamine IV via Bannana Bag Precedex Ativan 1 mg IV Q6H PRN 5). Hx Nicotine Abuse Counseled on 01/03/18 Will start Nicotine Patch once more stable 6). Hx MultiDrugAbuse: PCP, Marijuana 7). Prophylaxis Protonix 8 mg/hr IV NO anticoagulation secondary to GI Bleed SCDs Clear Liquid Diet Dose of Vitamin K given 01/04/18 Blood Culture 01/02/18 is negative to date Urine Culture 01/02/18 shows probable contamination Todd Cortés D.O. Objective - Vital Signs/Intake and Output Vital Signs (last 24 hours): Temp Pulse Resp BP Pulse Ox 97.3 F L 77 0 L 108/62 97 01/04/18 16:00 01/04/18 18:00 01/04/18 17:00 01/04/18 17:58 01/04/18 18:00 Intake and Output: 01/04/18 01/04/18 06:59 18:59 Intake Total 1340 240 Output Total 550 0 Balance 790 240 - Medications Medications: Current Medications Pantoprazole Sodium 80 mg/ (Sodium Chloride) 100 mls @ 10 mls/hr IVPB .Q10H MIKI PRN Reason: 8 MG/HR Last Admin: 01/04/18 17:20 Dose: 10 mls/hr Folic Acid 1 mg/ Sodium (Chloride) 100.2 mls @ 60 mls/hr IV DAILY MIKI Last Admin: 01/04/18 09:58 Dose: 60 mls/hr Octreotide Acetate 1,250 mcg/ (Dextrose) 252.5 mls @ 10.1 mls/hr IV .Q24H MIKI; 50 MCG/HR PRN Reason: Protocol Last Admin: 01/04/18 08:30 Dose: Not Given Ceftriaxone Sodium 1 gm/ (Sodium Chloride) 100 mls @ 100 mls/hr IVPB DAILY MIKI PRN Reason: Protocol Last Admin: 01/04/18 09:57 Dose: 100 mls/hr Folic Acid 1 mg/ Thiamine HCl 100 mg/ Multivitamins/Vitamin C 10 ml/ Dextrose 1 ,011.2 mls @ 100 mls/hr IV Q24H [facility] Last Admin: 01/04/18 13:42 Dose: 100 mls/hr Dexmedetomidine HCl 200 mcg/ (Sodium Chloride) 50 mls @ 6.53 mls/hr IV TITR PRN ; Protocol; 0.2 MCG/KG/HR PRN Reason: Agitation Lactulose (Enulose) 20 gm PO Q8 MIKI Last Admin: 01/04/18 14:20 Dose: 20 gm Lorazepam (Ativan) 1 mg IVP Q6H PRN PRN Reason: Symptoms of alcohol withdrawl Last Admin: 01/04/18 03:59 Dose: 1 mg Thiamine HCl (Vitamin B1 Inj) 100 mg IV DAILY [facility] Last Admin: 01/04/18 09:58 Dose: 100 mg - Labs Labs: 01/04/18 06:08 01/04/18 06:08 PT 22.9 SECONDS (9.7-12.2) H 01/03/18 06:36 INR 2.1 01/03/18 06:36 APTT 32 SECONDS (21-34) D 01/02/18 20:06
[2018-01-05] MEDS: Pantoprazole 80 MG in Sodium Chloride 0.9% 100 ML IVPB SCH ×2 (03:06→07:18)
[2018-01-05 06:47] LABS: BASO # 0.1 K/uL (0.0-0.2); EOS # 0.1 K/uL (0.0-0.7); EOS % 3.3 % (0.0-4.0); HEMOGLOBIN 8.7 g/dL (12.0-18.0); LYMPH # 1.1 K/uL (1.0-4.3); LYMPH % 26.1 % (20.0-40.0); MEAN CELL VOLUME 93.3 fL (80.0-94.0); MEAN CORPUSCULAR HEMOGLOBIN 30.6 pg (27.0-31.0); MEAN CORPUSCULAR HGB CONC 32.8 g/dL (33.0-37.0); MEAN PLATELET VOLUME 8.8 fL (7.2-11.7); MONO # 0.3 K/uL (0.0-0.8); MONO % 8.3 % (0.0-10.0); NEUT # 2.4 K/uL (1.8-7.0); NEUT % 59.3 % (50.0-75.0); NRBC % 0.2 % (0.0-2.0); RBC 2.85 Mil/uL (4.40-5.90); RED CELL DISTRIBUTION WIDTH 17.7 % (11.5-14.5); WHITE BLOOD COUNT 4.1 K/uL (4.8-10.8)
[2018-01-05 07:06] LABS: ALB/GLOB RATIO 0.7 (1.0-2.1); ALBUMIN 2.3 g/dL (3.5-5.0); ALT/SGPT 44 U/L (21-72); AST/SGOT 84 U/L (17-59); BLOOD UREA NITROGEN 11 mg/dL (9-20); CALCIUM 7.8 mg/dl (8.6-10.4); GFR NON-AFRICAN AMERICAN > 60
--- NOTE | 2018-01-05 10:35 | CP.CCUPN ---
<Bora Palmer - Last Filed: 01/05/18 16:47> CCU Subjective - Physician Review Subjective (Free Text): ICU progress note Patient seen and examined at bedside. He is more awake today, is not confused currently. 01/05/18 11:51 01/05/18 16:47 CCU Objective - Vital Signs / Intake & Output Vital Signs (Last 4 hours): Vital Signs Temp Pulse Resp BP Pulse Ox 01/05/18 08:00 98.3 F 69 18 99/55 L 98 01/05/18 07:00 71 9 L 98 01/05/18 06:58 66 9 L 104/55 L 98 Intake and Output (Last 8hrs): Intake & Output 01/04/18 01/05/18 01/05/18 22:59 06:59 14:59 Intake Total 610 260 40 Output Total 350 Balance 260 260 40 Weight 272 lb 4.8 oz Intake: Intake, IV Amount 560 260 40 Left Antecubital 400 100 Right Hand # 22 80 70 Right Hand #20 80 80 20 rt hand #22 2nd port 10 20 Oral 50 Output: Urine 350 Urine, Voided 350 Stool 0 Other: # Voids Condom 700 Urine, Voided 1 # Bowel Movements 1 - Physical Exam Head: Positive for: Atraumatic, Normocephalic Extroacular Muscles: Positive for: EOMI Conjunctiva: Positive for: Icteric Mouth: Positive for: Moist Mucous Membranes Respiratory/Chest: Positive for: Clear to Auscultation, Good Air Exchange. Negative for: Respiratory Distress, Accessory Muscle Use, Wheezes, Rales, Retracting, Rhonchi, Tachypneic Cardiovascular: Positive for: Regular Rate and Rhythm, Normal S1, S2. Negative for: Murmurs Abdomen: Positive for: Distention, Normal Bowel Sounds. Negative for: Tenderness Upper Extremity: Positive for: Edema (bilateral nonpitting edema of upper extremities ), NORMAL PULSES (Radial pulses) Lower Extremity: Positive for: Edema (bilateral pitting edema of lower extremities), NORMAL PULSES (dorsalis pedis pulses), Other (pedal edema bilaterally. ). Negative for: CALF TENDERNESS Neurological: Positive for: GCS=15, Speech Normal Skin: Positive for: Warm, Dry, Other (Jaundiced diffusely) Psychiatric: Positive for: Alert, Oriented x 3 - Medications Active Medications: Active Medications Generic Name Dose Route Start Last Admin Trade Name Freq PRN Reason Stop Dose Admin Folic Acid 1 mg 01/06/18 10:00 Folic Acid PO DAILY [facility] Ceftriaxone Sodium 1 gm/ 100 mls @ 100 mls/hr 01/02/18 10:00 01/04/18 09:57 Sodium Chloride IVPB 100 mls/hr DAILY MIKI Administration Protocol Folic Acid 1 mg/ Thiamine HCl 1,011.2 mls @ 100 mls/hr 01/02/18 14:00 13:42 100 mg/ Multivitamins/Vitamin IV 100 mls/hr C 10 ml/ Dextrose Q24H MIKI Administration Lactulose 20 gm 01/04/18 09:45 01/05/18 06:30 Enulose PO 20 gm Q8 MIKI Administration Lorazepam 1 mg 01/02/18 12:52 01/04/18 03:59 Ativan IVP 1 mg Q6H PRN Administration Symptoms of alcohol withdrawl Pantoprazole Sodium 40 mg 01/05/18 18:00 Protonix Ec Tab PO BID [facility] Thiamine HCl 100 mg 01/02/18 10:00 01/04/18 09:58 Vitamin B1 Inj IV 100 mg DAILY MIKI Administration - Patient Studies Lab Studies: Microbiology Studies 01/02/18 09:30 Blood Culture - Preliminary Blood NO GROWTH AFTER 3 DAYS 01/02/18 09:00 Blood Culture - Preliminary Blood NO GROWTH AFTER 3 DAYS Lab Studies 01/05/18 01/05/18 Range/Units 06:41 06:41 WBC 4.1 L (4.8-10.8) K/uL RBC 2.85 L (4.40-5.90) Mil/uL Hgb 8.7 L (12.0-18.0) g/dL Hct 26.6 L (35.0-51.0) % MCV 93.3 D (80.0-94.0) fL MCH 30.6 (27.0-31.0) pg MCHC 32.8 L (33.0-37.0) g/dL RDW 17.7 H (11.5-14.5) % Plt Count 63 L (130-400) K/uL MPV 8.8 (7.2-11.7) fL Neut % (Auto) 59.3 (50.0-75.0) % Lymph % (Auto) 26.1 (20.0-40.0) % [facility] % (Auto) 8.3 (0.0-10.0) % Eos % (Auto) 3.3 (0.0-4.0) % Baso % (Auto) 3.0 H (0.0-2.0) % Neut # (Auto) 2.4 (1.8-7.0) K/uL Lymph # (Auto) 1.1 (1.0-4.3) K/uL [facility] # (Auto) 0.3 (0.0-0.8) K/uL Eos # (Auto) 0.1 (0.0-0.7) K/uL Baso # (Auto) 0.1 (0.0-0.2) K/uL Sodium 140 (132-148) mmol/L Potassium 3.6 (3.6-5.2) mmol/L Chloride 111 H (98-107) mmol/L Carbon Dioxide 22 (22-30) mmol/L Anion Gap 11 (10-20) BUN 11 (9-20) mg/dL Creatinine 0.8 (0.8-1.5) mg/dL Est GFR ( Amer) > 60 Est GFR (Non-Af Amer) > 60 Random Glucose 97 (75-110) mg/dL Calcium 7.8 L (8.6-10.4) mg/dl Phosphorus 3.6 (2.5-4.5) mg/dL Magnesium 2.0 (1.6-2.3) mg/dL Total Bilirubin 5.0 H (0.2-1.3) mg/dL AST 84 H (17-59) U/L ALT 44 (21-72) U/L Alkaline Phosphatase 75 (38-126) U/L Total Protein 5.6 L (6.3-8.3) g/dL Albumin 2.3 L (3.5-5.0) g/dL Globulin 3.3 (2.2-3.9) gm/dL Albumin/Globulin Ratio 0.7 L (1.0-2.1) Laboratory Results - last 24 hr 01/05/18 01/05/18 06:41 06:41 WBC 4.1 L RBC 2.85 L Hgb 8.7 L Hct 26.6 L MCV 93.3 D MCH 30.6 MCHC 32.8 L RDW 17.7 H Plt Count 63 L MPV 8.8 Neut % (Auto) 59.3 Lymph % (Auto) 26.1 [facility] % (Auto) 8.3 Eos % (Auto) 3.3 Baso % (Auto) 3.0 H Neut # (Auto) 2.4 Lymph # (Auto) 1.1 [facility] # (Auto) 0.3 Eos # (Auto) 0.1 Baso # (Auto) 0.1 Sodium 140 Potassium 3.6 Chloride 111 H Carbon Dioxide 22 Anion Gap 11 BUN 11 Creatinine 0.8 Est GFR ( Amer) > 60 Est GFR (Non-Af Amer) > 60 Random Glucose 97 Calcium 7.8 L Phosphorus 3.6 Magnesium 2.0 Total Bilirubin 5.0 H AST 84 H ALT 44 Alkaline Phosphatase 75 Total Protein 5.6 L Albumin 2.3 L Globulin 3.3 Albumin/Globulin Ratio 0.7 L Fingerstick Blood Sugar Results: 114 Critical Care Progress Note - Nutrition Nutrition: Nutrition Category Date Time Status Heart Healthy Diet [DIET] Diets 01/05/18 Breakfast Active Assessment/Plan - Assessment and Plan (Free Text) Assessment: 42 year old male with history of esophageal varices, chronic liver disease, gallstones, alcohol abuse who presented with coffee ground emesis, which progressed to bloody emesis. Patient also noted to be stool occult positive. Patient was noted to have hemoglobin of 5.6, was transfused 5 PRBCs and 4 FFP. Endoscopy revealed Marsha Bustamante tear, esophagitis and small hiatal hernia. Plan: Neuro More awake and alert Given ammonia levels, continue Lactulose 20 Q 8 Ativan 1mg Q 6 PRN, last received overnight Precedex discontinued Folic acid 1mg PO daily Continue to monitor mental status UDS positive cannabinoids Cardiovascular BP 107/50 HR 60s EKG NSR 87, prolonged QTc 507 Pulmonary O2 saturating well. 100% on RA GI GI bleed Stool occult positive 01/02/18 EGD: LA Grade B reflux esophagitis, Marsha-Bustamante tear, small hiatal hernia. normal stomach. normal examined duodenum. Possible hepatic encephalopathy given ammonia is elevated at 83 today Lactulose [address] Holly consulted, help appreciated. Protonix and Octreotide drip discontinued Hep panel negative Spoke to Dr. Holly regarding recommendations, recommended Protonix 40mg PO, Propranolol 20mg daily and Lactulose 20mg daily on discharge. Does not recommend Lasix or spironolactone at this time. Renal BUN 11 Cr 0.8 I & Os Balance +680 ml Replete electrolytes as needed ID Rocephin 1g IV Blood culture prelim no growth Urine culture multiple species. no contamination. Nares MRSA not detected. Endo Maintain euglycemia Heme/Onc H 8.7/Hct 26.6 Patient has received PRBCs x5, FFP x4 PPX: Protonix, SCDs Case discussed with Dr. Metzger <eKvin Metzger S - Last Filed: 01/05/18 17:58> CCU Subjective - Physician Review Critical Care Time Spent (in minutes): 30 CCU Objective - Vital Signs / Intake & Output Vital Signs (Last 4 hours): Vital Signs Temp Pulse Resp BP Pulse Ox 01/05/18 16:00 97.4 F L 81 0 L 96/51 L 90 L 01/05/18 15:00 82 14 107/58 L 99 01/05/18 14:00 73 8 L 102/64 99 Intake and Output (Last 8hrs): Intake & Output 01/05/18 01/05/18 01/05/18 06:59 14:59 22:59 Intake Total 260 410 220 Output Total 350 Balance 260 410 -130 Weight 272 lb 4.8 oz Intake: Intake, IV Amount 260 160 Left Antecubital 100 Right Hand # 22 70 Right Hand #20 80 30 rt hand #22 2nd port 10 130 Oral 250 220 Output: Urine 350 Urine, Voided 350 Other: # Bowel Movements 1 - Medications Active Medications: Active Medications Generic Name Dose Route Start Last Admin Trade Name Bjq PRN Reason Stop Dose Admin Folic Acid 1 mg 01/06/18 10:00 Folic Acid PO DAILY [facility] Ceftriaxone Sodium 1 gm/ 100 mls @ 100 mls/hr 01/02/18 10:00 01/05/18 10:36 Sodium Chloride IVPB 100 mls/hr DAILY [facility]KI Administration Protocol Lactulose 20 gm 01/04/18 09:45 01/05/18 15:00 Enulose PO 20 gm Q8 MIKI Administration Lorazepam 1 mg 01/02/18 12:52 01/04/18 03:59 Ativan IVP 1 mg Q6H PRN Administration Symptoms of alcohol withdrawl Multivitamins 1 tab 01/05/18 12:15 01/05/18 17:30 Hexavitamin PO 1 tab DAILY MIKI Administration Pantoprazole Sodium 40 mg 01/05/18 18:00 01/05/18 17:30 Protonix Ec Tab PO 40 mg BID MIKI Administration Thiamine HCl 100 mg 01/02/18 10:00 01/05/18 10:37 Vitamin B1 Inj IV 100 mg DAILY MIKI Administration - Patient Studies Lab Studies: Microbiology Studies 01/02/18 09:30 Blood Culture - Preliminary Blood NO GROWTH AFTER 3 DAYS 01/02/18 09:00 Blood Culture - Preliminary Blood NO GROWTH AFTER 3 DAYS Lab Studies 01/05/18 01/05/18 Range/Units 06:41 06:41 WBC 4.1 L (4.8-10.8) K/uL RBC 2.85 L (4.40-5.90) Mil/uL Hgb 8.7 L (12.0-18.0) g/dL Hct 26.6 L (35.0-51.0) % MCV 93.3 D (80.0-94.0) fL MCH 30.6 (27.0-31.0) pg MCHC 32.8 L (33.0-37.0) g/dL RDW 17.7 H (11.5-14.5) % Plt Count 63 L (130-400) K/uL MPV 8.8 (7.2-11.7) fL Neut % (Auto) 59.3 (50.0-75.0) % Lymph % (Auto) 26.1 (20.0-40.0) % [facility] % (Auto) 8.3 (0.0-10.0) % Eos % (Auto) 3.3 (0.0-4.0) % Baso % (Auto) 3.0 H (0.0-2.0) % Neut # (Auto) 2.4 (1.8-7.0) K/uL Lymph # (Auto) 1.1 (1.0-4.3) K/uL [facility] # (Auto) 0.3 (0.0-0.8) K/uL Eos # (Auto) 0.1 (0.0-0.7) K/uL Baso # (Auto) 0.1 (0.0-0.2) K/uL Sodium 140 (132-148) mmol/L Potassium 3.6 (3.6-5.2) mmol/L Chloride 111 H (98-107) mmol/L Carbon Dioxide 22 (22-30) mmol/L Anion Gap 11 (10-20) BUN 11 (9-20) mg/dL Creatinine 0.8 (0.8-1.5) mg/dL Est GFR ( Amer) > 60 Est GFR (Non-Af Amer) > 60 Random Glucose 97 (75-110) mg/dL Calcium 7.8 L (8.6-10.4) mg/dl Phosphorus 3.6 (2.5-4.5) mg/dL Magnesium 2.0 (1.6-2.3) mg/dL Total Bilirubin 5.0 H (0.2-1.3) mg/dL AST 84 H (17-59) U/L ALT 44 (21-72) U/L Alkaline Phosphatase 75 (38-126) U/L Total Protein 5.6 L (6.3-8.3) g/dL Albumin 2.3 L (3.5-5.0) g/dL Globulin 3.3 (2.2-3.9) gm/dL Albumin/Globulin Ratio 0.7 L (1.0-2.1) Laboratory Results - last 24 hr 01/05/18 01/05/18 06:41 06:41 WBC 4.1 L RBC 2.85 L Hgb 8.7 L Hct 26.6 L MCV 93.3 D MCH 30.6 MCHC 32.8 L RDW 17.7 H Plt Count 63 L MPV 8.8 Neut % (Auto) 59.3 Lymph % (Auto) 26.1 [facility] % (Auto) 8.3 Eos % (Auto) 3.3 Baso % (Auto) 3.0 H Neut # (Auto) 2.4 Lymph # (Auto) 1.1 [facility] # (Auto) 0.3 Eos # (Auto) 0.1 Baso # (Auto) 0.1 Sodium 140 Potassium 3.6 Chloride 111 H Carbon Dioxide 22 Anion Gap 11 BUN 11 Creatinine 0.8 Est GFR ( Amer) > 60 Est GFR (Non-Af Amer) > 60 Random Glucose 97 Calcium 7.8 L Phosphorus 3.6 Magnesium 2.0 Total Bilirubin 5.0 H AST 84 H ALT 44 Alkaline Phosphatase 75 Total Protein 5.6 L Albumin 2.3 L Globulin 3.3 Albumin/Globulin Ratio 0.7 L Critical Care Progress Note - Nutrition Nutrition: Nutrition Category Date Time Status Heart Healthy Diet [DIET] Diets 01/05/18 Breakfast Active Attending/Attestation - Attestation I have personally seen and examined this patient.: Yes I have fully participated in the care of the patient.: Yes I have reviewed all pertinent clinical information: Yes Notes (Text): 01/05/18 17:57 Patient seen and examined in the intensive care unit. Patient is much more awake and responsive Continue present treatment
[2018-01-05] MEDS: Thiamine 100 mg/ml Inj IV SCH (10:37)
--- NOTE | 2018-01-05 12:06 | CP.PCM.PN ---
Subjective - Date & Time of Evaluation Date of Evaluation: 01/05/18 Time of Evaluation: 11:45 - Subjective Subjective: Hospitalist Progress Note Patient was seen and examined at 11:45 AM 01/05/18 ICU Bed 4 42 year old male who was admitted 01/02/18 for evaluation of likely Upper GI Bleeding. Patient was admitted to [facility] on 12/11/17 through 12/18/17 at which time he was diagnosed with Esophageal Varices. Please see Assessment and Plans below for further details. Patient today is awake, alert, oriented to person/place/time/current situation. Stated that he is in the process of moving from [place] to here after the of his mother. States that he does not remember much since in his admission. I went over his diagnosises with him and he expressed understanding that he has liver failure, that continued drinking alcohol will hasten his , that he needs follow up with GI and care coordination with a primary care office which he has agreed to have done through the [facility]. Plan would be to see how he tolerates his meals today and as long as his hgb/ hct remain stable will discharge tomorrow. ICU Resident to reach out to GI Dr. Holly for recommendations for medications from GI [facility]: Inderal, Spiranolactone, Lasix, Protonix, Lactulose? The HgB/Hct are continuing to remain stable. Ammonia is slowly coming down on Lactulose: he has had bowel movement this morning. Currently upon FULL ROS he has no complaints other than being hungry General: AAO x 3, NAD HEENT: NCA, PERRLA, EOMI, Scleral Incterus NO pharyngeal erythema/exudate, NO lymphadenopathy, NO thyromegaly Cardio: NS1 and NS2, NO M/R/G Resp: CTA B/L, NO R/R/W GI: BSx4 reduced, Distention, Soft, Liver and Spleen palpation not attempted, NT , NO guarding/rebound tenderness Ext: Pulses are strong and equal bilateral UE and LE, 2+ pitting edema bilateral LE from feet to knees, NON-pitting edema of the bilateral lower arms Neuro: CN II through XII were grossly intact Skin: Jaundice Assessment and Plan: 1). Upper GI Bleed Secondary to Marsha Bustamante Tear and Hx of Esophageal Varices Upper EGD performed by GI Dr. Holly on morning 01/03/18: Marsha Bustamante Tear with stigmata of bleeding that did not respond to Epinephrine Injection but was then bandded. Also showed small hiatal hernia. Patient received multiple PRBC and FFP in the ICU Octreotide 50 mcg/hr IV was discontinued 01/05/18 Protonix 8 mg/hr IV was changed to 40 mg PO 2x/day Heart Healthy Diet Please note patient was also hospitalized at a hospital in [place] in August 2017 for bleeding Esophageal Varices and they were ligated at that time. Patient states that he is now living in [place]. 2). Hx Chronic Cholecystitis U/S Abdomen last admission here at [facility] showed cirrhotic liver, mulitple gallstones with thickened gallbladder wall and mild pericholecystic fluid with normal bile duct However not a good surgical candidate and GI recommended lap patricia when his liver disease was more stable Also please note that prior to [facility] admission on 12/11/17 patient was hospitalized for this issue in early December but then signed out AMA 3). Hx Liver Cirrhosis Ceftriaxone 1 gm IV 1x/day Amonnia level elevated and therefore was started on Lactulose 20 mg PO Q8H: it is slowly coming down Will need to follow up with GI through [facility] as an outpatient 4). Hx Alcohol Abuse Counseled 01/03/18 and states that he has not quit since his current admission Folic Acid 1 mg PO 1x/day Thiamine 100 mg PO 1x/day MVI Precedex drip was discontinued 01/05/18 Ativan 1 mg IV Q6H PRN 5). Hx Nicotine Abuse Counseled on 01/03/18 Will start Nicotine Patch once more stable 6). Hx MultiDrugAbuse: PCP, Marijuana 7). Prophylaxis Protonix 40 mg PO 2x/day NO anticoagulation secondary to GI Bleed SCDs Heart Healthy Diet Dose of Vitamin K given 01/04/18 Blood Culture 01/02/18 is negative to date Urine Culture 01/02/18 shows probable contamination Blood Pressure is stable NO fevers Todd Cortés D.O. Objective - Vital Signs/Intake and Output Vital Signs (last 24 hours): Temp Pulse Resp BP Pulse Ox 98.3 F 71 18 113/69 98 01/05/18 08:00 01/05/18 11:00 01/05/18 11:00 01/05/18 11:00 01/05/18 11:00 Intake and Output: 01/05/18 01/05/18 06:59 18:59 Intake Total 790 360 Output Total 350 Balance 440 360 - Medications Medications: Current Medications Folic Acid (Folic Acid) 1 mg PO DAILY [facility] Ceftriaxone Sodium 1 gm/ (Sodium Chloride) 100 mls @ 100 mls/hr IVPB DAILY MIKI PRN Reason: Protocol Last Admin: 01/05/18 10:36 Dose: 100 mls/hr Lactulose (Enulose) 20 gm PO Q8 MIKI Last Admin: 01/05/18 06:30 Dose: 20 gm Lorazepam (Ativan) 1 mg IVP Q6H PRN PRN Reason: Symptoms of alcohol withdrawl Last Admin: 01/04/18 03:59 Dose: 1 mg Pantoprazole Sodium (Protonix Ec Tab) 40 mg PO BID [facility] Thiamine HCl (Vitamin B1 Inj) 100 mg IV DAILY [facility] Last Admin: 01/05/18 10:37 Dose: 100 mg - Labs Labs: 01/05/18 06:41 01/05/18 06:41 PT 22.9 SECONDS (9.7-12.2) H 01/03/18 06:36 INR 2.1 01/03/18 06:36 APTT 32 SECONDS (21-34) D 01/02/18 20:06
--- NOTE | 2018-01-05 17:09 | CP.PCM.PN ---
Subjective - Date & Time of Evaluation Date of Evaluation: 01/05/18 Time of Evaluation: 17:04 - Subjective Subjective: Patient is more alert than yesterday, though he remains sleepy. He denies having nausea, vomiting, abdominal pain. The bowel movements are dark. Objective - Vital Signs/Intake and Output Vital Signs (last 24 hours): Temp Pulse Resp BP Pulse Ox 97.4 F L 81 0 L 96/51 L 90 L 01/05/18 16:00 01/05/18 16:00 01/05/18 16:00 01/05/18 16:00 01/05/18 16:00 Intake and Output: 01/05/18 01/05/18 06:59 18:59 Intake Total 790 630 Output Total 350 350 Balance 440 280 - Medications Medications: Current Medications Folic Acid (Folic Acid) 1 mg PO DAILY [facility] Ceftriaxone Sodium 1 gm/ (Sodium Chloride) 100 mls @ 100 mls/hr IVPB DAILY MIKI PRN Reason: Protocol Last Admin: 01/05/18 10:36 Dose: 100 mls/hr Lactulose (Enulose) 20 gm PO Q8 MIKI Last Admin: 01/05/18 06:30 Dose: 20 gm Lorazepam (Ativan) 1 mg IVP Q6H PRN PRN Reason: Symptoms of alcohol withdrawl Last Admin: 01/04/18 03:59 Dose: 1 mg Multivitamins (Hexavitamin) 1 tab PO DAILY [facility] Pantoprazole Sodium (Protonix Ec Tab) 40 mg PO BID [facility]KI Thiamine HCl (Vitamin B1 Inj) 100 mg IV DAILY [facility] Last Admin: 01/05/18 10:37 Dose: 100 mg - Labs Labs: 01/05/18 06:41 01/05/18 06:41 PT 22.9 SECONDS (9.7-12.2) H 01/03/18 06:36 INR 2.1 01/03/18 06:36 APTT 32 SECONDS (21-34) D 01/02/18 20:06 - Constitutional Appears: No Acute Distress - Head Exam Head Exam: ATRAUMATIC, NORMOCEPHALIC - Eye Exam Eye Exam: EOMI, PERRL, Scleral icterus - Neck Exam Neck Exam: absent: Lymphadenopathy, Thyromegaly - Respiratory Exam Respiratory Exam: NORMAL BREATHING PATTERN. absent: Rales, Rhonchi, Wheezes - Cardiovascular Exam Cardiovascular Exam: REGULAR RHYTHM, +S1, +S2. absent: Gallop, Rubs, Murmur - GI/Abdominal Exam GI & Abdominal Exam: Distended, Soft, Normal Bowel Sounds. absent: Tenderness, Organomegaly - Rectal Exam Rectal Exam: Deferred - Extremities Exam Extremities Exam: Pedal Edema. absent: Calf Tenderness Assessment and Plan (1) Alcoholic cirrhosis Assessment & Plan: Patient is more alert with lactulose. Will check sonogram for ascites to see if diuretics are indicated. Diet should be 2 gram sodium. Status: Chronic
[2018-01-05] MEDS: Pantoprazole 40 mg EC Tab PO SCH (17:30)
[2018-01-05] MEDS: Multiple Vitamins Tab PO SCH (17:30)
[2018-01-06 06:00] LABS: BASO % 1.3 % (0.0-2.0); EOS # 0.2 K/uL (0.0-0.7); EOS % 4.5 % (0.0-4.0); HEMOGLOBIN 7.4 g/dL (12.0-18.0); LYMPH # 0.9 K/uL (1.0-4.3); LYMPH % 25.8 % (20.0-40.0); MEAN CELL VOLUME 90.7 fL (80.0-94.0); MEAN CORPUSCULAR HEMOGLOBIN 30.6 pg (27.0-31.0); MEAN CORPUSCULAR HGB CONC 33.7 g/dL (33.0-37.0); MEAN PLATELET VOLUME 8.5 fL (7.2-11.7); MONO # 0.4 K/uL (0.0-0.8); MONO % 10.6 % (0.0-10.0); NEUT % 57.8 % (50.0-75.0); NRBC % 0.1 % (0.0-2.0); RBC 2.41 Mil/uL (4.40-5.90); RED CELL DISTRIBUTION WIDTH 17.5 % (11.5-14.5); WHITE BLOOD COUNT 3.5 K/uL (4.8-10.8)
[2018-01-06 06:15] LABS: ALB/GLOB RATIO 0.6 (1.0-2.1); ALT/SGPT 40 U/L (21-72); AST/SGOT 70 U/L (17-59); BLOOD UREA NITROGEN 10 mg/dL (9-20); CALCIUM 7.5 mg/dl (8.6-10.4); GFR NON-AFRICAN AMERICAN > 60
--- NOTE | 2018-01-06 08:56 | CP.PCM.PN ---
Subjective - Date & Time of Evaluation Date of Evaluation: 01/06/18 Time of Evaluation: 08:40 - Subjective Subjective: Hospitalist Progress Note Patient was seen and examined at 8:40 AM 01/06/18 ICU Bed 4 42 year old male who was admitted 01/02/18 for evaluation of likely Upper GI Bleeding. Patient was admitted to [facility] on 12/11/17 through 12/18/17 at which time he was diagnosed with Esophageal Varices. Please see Assessment and Plans below for further details. Upon ROS: Black pasty bowel movement after my exam on 01/05/18 Upset because his breakfast was taken away as U/S Abdomen is pending performance NO other complaints upon FULL ROS GI Dr. Holly's recommendations for medications: Protonix 40 mg PO 1x/day Propranolol 20 mg PO 1x/day Lactulose 20 gm PO 1x/day Spiranolactone and Lasix use will depend upon presence of Ascites on U/S Abdomen HgB/Hct have decreased and in light of the black bowel movement, will repeat CBC at 1 PM B/P on low side and no tachycardia Ammonia level has normalized General: AAO x 3, NAD HEENT: NCA, PERRLA, EOMI, Scleral Incterus NO pharyngeal erythema/exudate, NO lymphadenopathy, NO thyromegaly Cardio: NS1 and NS2, NO M/R/G Resp: CTA B/L, NO R/R/W GI: BSx4 reduced, Distention, Soft, Liver and Spleen palpation not attempted, NT , NO guarding/rebound tenderness Ext: Pulses are strong and equal bilateral UE and LE, 2+ pitting edema bilateral LE from feet to knees, NON-pitting edema of the bilateral lower arms Neuro: CN II through XII were grossly intact Skin: Jaundice Assessment and Plan: 1). Upper GI Bleed Secondary to Marsha Bustamante Tear and Hx of Esophageal Varices Upper EGD performed by GI Dr. Holly on morning 01/03/18: Marsha Bustamante Tear with stigmata of bleeding that did not respond to Epinephrine Injection but was then bandded. Also showed small hiatal hernia. Patient received multiple PRBC and FFP in the ICU Octreotide 50 mcg/hr IV was discontinued 01/05/18 Protonix 8 mg/hr IV was changed to 40 mg PO 2x/day Heart Healthy Diet Please note patient was also hospitalized at a hospital in [place] in August 2017 for bleeding Esophageal Varices and they were ligated at that time. Patient states that he is now living in [place]. 2). Hx Chronic Cholecystitis U/S Abdomen last admission here at [facility] showed cirrhotic liver, mulitple gallstones with thickened gallbladder wall and mild pericholecystic fluid with normal bile duct However not a good surgical candidate and GI recommended lap patricia when his liver disease was more stable Also please note that prior to [facility] admission on 12/11/17 patient was hospitalized for this issue in early December but then signed out AMA 3). Hx Liver Cirrhosis Ceftriaxone 1 gm IV 1x/day Amonnia level elevated and therefore was started on Lactulose 20 mg PO Q8H: it is slowly coming down Will need to follow up with GI through [facility] as an outpatient 4). Hx Alcohol Abuse Counseled 01/03/18 and states that he has not quit since his current admission Folic Acid 1 mg PO 1x/day Thiamine 100 mg PO 1x/day MVI Precedex drip was discontinued 01/05/18 Ativan 1 mg IV Q6H PRN NO signs of withdrawl on exam 5). Hx Nicotine Abuse Counseled on 01/03/18 Will start Nicotine Patch once more stable 6). Hx MultiDrugAbuse: PCP, Marijuana 7). Prophylaxis Protonix 40 mg PO 2x/day NO anticoagulation secondary to GI Bleed SCDs Heart Healthy Diet Dose of Vitamin K given 01/04/18 Blood Culture 01/02/18 is negative to date Urine Culture 01/02/18 shows probable contamination Todd Cortés D.O. Objective - Vital Signs/Intake and Output Vital Signs (last 24 hours): Temp Pulse Resp BP Pulse Ox 97.6 F 81 8 L 111/68 99 01/06/18 08:00 01/06/18 08:00 01/06/18 08:00 01/06/18 07:58 01/06/18 08:00 Intake and Output: 01/06/18 01/06/18 06:59 18:59 Intake Total 480 110 Output Total 520 300 Balance -40 -190 - Medications Medications: Current Medications Folic Acid (Folic Acid) 1 mg PO DAILY [facility] Ceftriaxone Sodium 1 gm/ (Sodium Chloride) 100 mls @ 100 mls/hr IVPB DAILY [facility] PRN Reason: Protocol Last Admin: 01/05/18 10:36 Dose: 100 mls/hr Lactulose (Enulose) 20 gm PO Q8 [facility] Last Admin: 01/06/18 06:09 Dose: 20 gm Lorazepam (Ativan) 1 mg IVP Q6H PRN PRN Reason: Symptoms of alcohol withdrawl Last Admin: 01/04/18 03:59 Dose: 1 mg Multivitamins (Hexavitamin) 1 tab PO DAILY [facility] Last Admin: 01/05/18 17:30 Dose: 1 tab Pantoprazole Sodium (Protonix Ec Tab) 40 mg PO BID [facility] Last Admin: 01/05/18 17:30 Dose: 40 mg Thiamine HCl (Vitamin B1 Inj) 100 mg IV DAILY [facility] Last Admin: 01/05/18 10:37 Dose: 100 mg Zolpidem Tartrate (Ambien) 5 mg PO HS PRN PRN Reason: Insomnia Last Admin: 01/05/18 21:02 Dose: 5 mg - Labs Labs: 01/06/18 05:51 01/06/18 05:51 PT 22.9 SECONDS (9.7-12.2) H 01/03/18 06:36 INR 2.1 01/03/18 06:36 APTT 32 SECONDS (21-34) D 01/02/18 20:06
[2018-01-06] MEDS: Multiple Vitamins Tab PO SCH (10:00)
[2018-01-06] MEDS: Pantoprazole 40 mg EC Tab PO SCH ×2 (10:00→17:45)
[2018-01-06] MEDS: Thiamine 100 mg/ml Inj IV SCH (10:01)
--- NOTE | 2018-01-06 12:25 | US ---
Date of service: 01/06/2018 HISTORY: r/o ascites COMPARISON: 12/12/2017 abdominal ultrasound TECHNIQUE: Sonographic evaluation of the abdomen. FINDINGS: LIVER: Measures 18.9 cm. Hepatopedal blood flow. Fatty infiltration manifest ultrasonographically as increased echogenicity of the liver parenchyma. Abnormal irregular nodular contour to the liver consistent with hepatocellular disease/cirrhosis. GALLBLADDER: Cholelithiasis without sonographic He's sign. Sludge identified as is gallbladder wall edema. Similar findings identified on the prior ultrasound. COMMON BILE DUCT: Measures 6.3 mm. No stones. No dilatation. PANCREAS: Unremarkable as visualized. No mass. No ductal dilatation. RIGHT KIDNEY: Measures 5.2 x 12.0cm. Normal echogenicity. No calculus, mass, or hydronephrosis. LEFT KIDNEY: Measures 5.4 x 13.2cm. Normal echogenicity. No calculus, mass, or hydronephrosis. SPLEEN: Splenomegaly. Cephalocaudal length 15.3 cm. AORTA: No aneurysmal dilatation. IVC: Unremarkable. OTHER FINDINGS: Qualitatively, increased volume of abdominal ascites. IMPRESSION: Increase in ascites volume. Hepatosplenomegaly, cirrhotic liver stable. Stable findings in the gallbladder including gallstones and gallbladder wall thickening.
[2018-01-06 12:39] LABS: BASO % 0.4 % (0.0-2.0); EOS # 0.2 K/uL (0.0-0.7); EOS % 3.6 % (0.0-4.0); HEMOGLOBIN 8.4 g/dL (12.0-18.0); LYMPH # 1.3 K/uL (1.0-4.3); MEAN CELL VOLUME 91.7 fL (80.0-94.0); MEAN CORPUSCULAR HEMOGLOBIN 30.4 pg (27.0-31.0); MEAN CORPUSCULAR HGB CONC 33.2 g/dL (33.0-37.0); MEAN PLATELET VOLUME 8.4 fL (7.2-11.7); MONO # 0.6 K/uL (0.0-0.8); NEUT # 3.4 K/uL (1.8-7.0); RBC 2.75 Mil/uL (4.40-5.90); RED CELL DISTRIBUTION WIDTH 17.8 % (11.5-14.5)
[2018-01-06 12:40] LABS: WHITE BLOOD COUNT 5.5 K/uL (4.8-10.8)
--- NOTE | 2018-01-06 14:47 | CP.CCUPN ---
Addendum entered and electronically signed by Bora Palmer 01/06/18 16:13: Patient stable to be transferred to Med-Surg Original Note: <Bora Palmer - Last Filed: 01/06/18 15:48> CCU Subjective - Physician Review Subjective (Free Text): ICU progress note Patient seen and examined at bedside. He is awake today. Has no complaints of abdominal pain, nausea, vomiting, bloody stools currently. He denies feeling chest pain, fever, chills, shortness of breath, leg pain. 01/06/18 15:51 CCU Objective - Vital Signs / Intake & Output Vital Signs (Last 4 hours): Vital Signs Temp Pulse Resp BP Pulse Ox 01/06/18 13:00 77 11 L 01/06/18 12:00 98.2 F 89 13 94 L 01/06/18 11:24 83 14 110/74 100 01/06/18 11:00 84 11 L 91 L 01/06/18 10:58 81 10 L 124/78 99 Intake and Output (Last 8hrs): Intake & Output 01/05/18 01/06/18 01/06/18 22:59 06:59 14:59 Intake Total 680 120 570 Output Total 650 520 301 Balance 30 -400 269 Weight 276 lb 3.2 oz Intake: Intake, IV Amount 10 Right Hand 10 Oral 680 120 460 Other 100 Output: Urine 650 520 300 Urine, Voided 650 520 300 Urine/Stool Mix 1 Emesis 0 Oral Regurgitation 0 Other: # Voids Urine, Voided 1 # Bowel Movements 1 1 - Physical Exam Head: Positive for: Atraumatic, Normocephalic Extroacular Muscles: Positive for: EOMI Conjunctiva: Positive for: Icteric Mouth: Positive for: Moist Mucous Membranes Respiratory/Chest: Positive for: Clear to Auscultation, Good Air Exchange. Negative for: Respiratory Distress, Accessory Muscle Use, Wheezes, Rales, Retracting, Rhonchi, Tachypneic Cardiovascular: Positive for: Regular Rate and Rhythm, Normal S1, S2. Negative for: Murmurs Abdomen: Positive for: Distention, Normal Bowel Sounds. Negative for: Tenderness Upper Extremity: Positive for: Edema (bilateral nonpitting edema of upper extremities ), NORMAL PULSES (Radial pulses) Lower Extremity: Positive for: Edema (bilateral pitting edema of lower extremities), NORMAL PULSES (dorsalis pedis pulses), Other (pedal edema bilaterally. ). Negative for: CALF TENDERNESS Neurological: Positive for: GCS=15, Speech Normal Skin: Positive for: Warm, Dry, Other (Jaundiced diffusely) Psychiatric: Positive for: Alert, Oriented x 3 - Medications Active Medications: Active Medications Generic Name Dose Route Start Last Admin Trade Name Freq PRN Reason Stop Dose Admin Folic Acid 1 mg 01/06/18 10:00 01/06/18 10:00 Folic Acid PO 1 mg DAILY MIKI Administration Ceftriaxone Sodium 1 gm/ 100 mls @ 100 mls/hr 01/02/18 10:00 01/06/18 10:00 Sodium Chloride IVPB 100 mls/hr DAILY MIKI Administration Protocol Lactulose 20 gm 01/04/18 09:45 01/06/18 06:09 Enulose PO 20 gm Q8 MIKI Administration Lorazepam 1 mg 01/02/18 12:52 01/04/18 03:59 Ativan IVP 1 mg Q6H PRN Administration Symptoms of alcohol withdrawl Multivitamins 1 tab 01/05/18 12:15 01/06/18 10:00 Hexavitamin PO 1 tab DAILY MIKI Administration Pantoprazole Sodium 40 mg 01/05/18 18:00 01/06/18 10:00 Protonix Ec Tab PO 40 mg BID MIKI Administration Thiamine HCl 100 mg 01/02/18 10:00 01/06/18 10:01 Vitamin B1 Inj IV 100 mg DAILY [facility]KI Administration Zolpidem Tartrate 5 mg 01/05/18 20:33 01/05/18 21:02 Ambien PO 5 mg HS PRN Administration Insomnia - Patient Studies Lab Studies: Microbiology Studies 01/02/18 09:30 Blood Culture - Preliminary Blood NO GROWTH AFTER 4 DAYS 01/02/18 09:00 Blood Culture - Preliminary Blood NO GROWTH AFTER 4 DAYS Lab Studies 01/06/18 01/06/18 01/06/18 Range/Units 12:35 05:51 05:51 WBC 5.5 D 3.5 L (4.8-10.8) K/uL RBC 2.75 L 2.41 L (4.40-5.90) Mil/uL Hgb 8.4 L 7.4 L (12.0-18.0) g/dL Hct 25.2 L 21.9 L (35.0-51.0) % MCV 91.7 90.7 D (80.0-94.0) fL MCH 30.4 30.6 (27.0-31.0) pg MCHC 33.2 33.7 (33.0-37.0) g/dL RDW 17.8 H 17.5 H (11.5-14.5) % Plt Count 66 L 60 L (130-400) K/uL MPV 8.4 8.5 (7.2-11.7) fL Neut % (Auto) 61.0 57.8 (50.0-75.0) % Lymph % (Auto) 24.0 25.8 (20.0-40.0) % [place] % (Auto) 11.0 H 10.6 H (0.0-10.0) % Eos % (Auto) 3.6 4.5 H (0.0-4.0) % Baso % (Auto) 0.4 1.3 (0.0-2.0) % Neut # (Auto) 3.4 2.0 (1.8-7.0) K/uL Lymph # (Auto) 1.3 0.9 L (1.0-4.3) K/uL [place] # (Auto) 0.6 0.4 (0.0-0.8) K/uL Eos # (Auto) 0.2 0.2 (0.0-0.7) K/uL Baso # (Auto) 0.0 0.0 (0.0-0.2) K/uL Differential Comment Sodium 138 (132-148) mmol/L Potassium 3.6 (3.6-5.2) mmol/L Chloride 109 H (98-107) mmol/L Carbon Dioxide 24 (22-30) mmol/L Anion Gap 8 L (10-20) BUN 10 (9-20) mg/dL Creatinine 0.8 (0.8-1.5) mg/dL Est GFR ( Amer) > 60 Est GFR (Non-Af Amer) > 60 Random Glucose 101 (75-110) mg/dL Calcium 7.5 L (8.6-10.4) mg/dl Phosphorus 3.7 (2.5-4.5) mg/dL Magnesium 1.9 (1.6-2.3) mg/dL Total Bilirubin 3.8 H (0.2-1.3) mg/dL AST 70 H (17-59) U/L ALT 40 (21-72) U/L Alkaline Phosphatase 70 (38-126) U/L Ammonia (9-33) umol/L Total Protein 5.1 L (6.3-8.3) g/dL Albumin 2.0 L (3.5-5.0) g/dL Globulin 3.1 (2.2-3.9) gm/dL Albumin/Globulin Ratio 0.6 L (1.0-2.1) 01/06/18 Range/Units 04:00 WBC (4.8-10.8) K/uL RBC (4.40-5.90) Mil/uL Hgb (12.0-18.0) g/dL Hct (35.0-51.0) % MCV (80.0-94.0) fL MCH (27.0-31.0) pg MCHC (33.0-37.0) g/dL RDW (11.5-14.5) % Plt Count (130-400) K/uL MPV (7.2-11.7) fL Neut % (Auto) (50.0-75.0) % Lymph % (Auto) (20.0-40.0) % [place] % (Auto) (0.0-10.0) % Eos % (Auto) (0.0-4.0) % Baso % (Auto) (0.0-2.0) % Neut # (Auto) (1.8-7.0) K/uL Lymph # (Auto) (1.0-4.3) K/uL [place] # (Auto) (0.0-0.8) K/uL Eos # (Auto) (0.0-0.7) K/uL Baso # (Auto) (0.0-0.2) K/uL Differential Comment Sodium (132-148) mmol/L Potassium (3.6-5.2) mmol/L Chloride (98-107) mmol/L Carbon Dioxide (22-30) mmol/L Anion Gap (10-20) BUN (9-20) mg/dL Creatinine (0.8-1.5) mg/dL Est GFR ( Amer) Est GFR (Non-Af Amer) Random Glucose (75-110) mg/dL Calcium (8.6-10.4) mg/dl Phosphorus (2.5-4.5) mg/dL Magnesium (1.6-2.3) mg/dL Total Bilirubin (0.2-1.3) mg/dL AST (17-59) U/L ALT (21-72) U/L Alkaline Phosphatase (38-126) U/L Ammonia 31 D (9-33) umol/L Total Protein (6.3-8.3) g/dL Albumin (3.5-5.0) g/dL Globulin (2.2-3.9) gm/dL Albumin/Globulin Ratio (1.0-2.1) Laboratory Results - last 24 hr 01/06/18 01/06/18 01/06/18 04:00 05:51 05:51 WBC 3.5 L RBC 2.41 L Hgb 7.4 L Hct 21.9 L MCV 90.7 D MCH 30.6 MCHC 33.7 RDW 17.5 H Plt Count 60 L MPV 8.5 Neut % (Auto) 57.8 Lymph % (Auto) 25.8 [place] % (Auto) 10.6 H Eos % (Auto) 4.5 H Baso % (Auto) 1.3 Neut # (Auto) 2.0 Lymph # (Auto) 0.9 L [place] # (Auto) 0.4 Eos # (Auto) 0.2 Baso # (Auto) 0.0 Differential Comment Sodium 138 Potassium 3.6 Chloride 109 H Carbon Dioxide 24 Anion Gap 8 L BUN 10 Creatinine 0.8 Est GFR ( Amer) > 60 Est GFR (Non-Af Amer) > 60 Random Glucose 101 Calcium 7.5 L Phosphorus 3.7 Magnesium 1.9 Total Bilirubin 3.8 H AST 70 H ALT 40 Alkaline Phosphatase 70 Ammonia 31 D Total Protein 5.1 L Albumin 2.0 L Globulin 3.1 Albumin/Globulin Ratio 0.6 L 01/06/18 12:35 WBC 5.5 D RBC 2.75 L Hgb 8.4 L Hct 25.2 L MCV 91.7 MCH 30.4 MCHC 33.2 RDW 17.8 H Plt Count 66 L MPV 8.4 Neut % (Auto) 61.0 Lymph % (Auto) 24.0 [place] % (Auto) 11.0 H Eos % (Auto) 3.6 Baso % (Auto) 0.4 Neut # (Auto) 3.4 Lymph # (Auto) 1.3 [place] # (Auto) 0.6 Eos # (Auto) 0.2 Baso # (Auto) 0.0 Differential Comment Sodium Potassium Chloride Carbon Dioxide Anion Gap BUN Creatinine Est GFR ( Amer) Est GFR (Non-Af Amer) Random Glucose Calcium Phosphorus Magnesium Total Bilirubin AST ALT Alkaline Phosphatase Ammonia Total Protein Albumin Globulin Albumin/Globulin Ratio Fingerstick Blood Sugar Results: 114 Review of Systems - Constitutional Constitutional: absent: Fever, Chills - EENT Eyes: absent: Change in Vision - Cardiovascular Cardiovascular: absent: Chest Pain, Dyspnea - Respiratory Respiratory: absent: Cough, Dyspnea - Gastrointestinal Gastrointestinal: absent: Abdominal Pain, Diarrhea, Nausea, Vomiting - Genitourinary Genitourinary: absent: Difficulty Urinating, Dysuria Critical Care Progress Note - Nutrition Nutrition: Nutrition Category Date Time Status Heart Healthy Diet [DIET] Diets 01/05/18 Breakfast Active Assessment/Plan - Assessment and Plan (Free Text) Assessment: 42 year old male with history of esophageal varices, chronic liver disease, gallstones, alcohol abuse who presented with coffee ground emesis, which progressed to bloody emesis. Patient also noted to be stool occult positive. Patient was noted to have hemoglobin of 5.6, was transfused 5 PRBCs and 4 FFP. Endoscopy revealed Marsha Bustamante tear, esophagitis and small hiatal hernia. Plan: Neuro More awake and alert Ammonia level 31 today, continue Lactulose 20 Q 8 unless >3 BMs daily Ativan 1mg Q 6 PRN Precedex discontinued Folic acid 1mg PO daily On multivitamin Continue to monitor mental status UDS positive cannabinoids Cardiovascular BP 110/74 HR 70s EKG NSR 87, prolonged QTc 507 Pulmonary O2 saturating well. 100% on RA GI GI bleed Stool occult positive 01/02/18 EGD: LA Grade B reflux esophagitis, Marsha-Bustamante tear, small hiatal hernia. normal stomach. normal examined duodenum. hepatic encephalopathy, improving Lactulose [address] Holly consulted, help appreciated. Hep panel negative Abdominal US: Increase in ascites volume. Hepatosplenomegaly, cirrhotic liver stable. Stable findings in GB including gallstones and GB wall thickening. Spoke to Dr. Holly regarding recommendations, recommended Protonix 40mg PO, Lactulose 20mg daily, Spironolactone 100mg daily and Lasix 40mg. Does not recommend Beta blockers at this time. Renal BUN 10 Cr 0.8 I & Os Balance +40 ml Replete electrolytes as needed ID Rocephin 1g IV Blood culture prelim no growth Urine culture multiple species. no contamination. Nares MRSA not detected. Endo Maintain euglycemia Heme/Onc H 8.4/Hct 25.2 Patient has received PRBCs x5, FFP x4 PPX: Protonix, SCDs Case discussed with Dr. Turcios <Caleb Turcios M - Last Filed: 01/06/18 17:00> CCU Objective - Vital Signs / Intake & Output Vital Signs (Last 4 hours): Vital Signs Pulse Resp 01/06/18 13:00 77 11 L Intake and Output (Last 8hrs): Intake & Output 01/06/18 01/06/18 01/06/18 06:59 14:59 22:59 Intake Total 120 570 Output Total 520 301 Balance -400 269 Weight 276 lb 3.2 oz Intake: Intake, IV Amount 10 Right Hand 10 Oral 120 460 Other 100 Output: Urine 520 300 Urine, Voided 520 300 Urine/Stool Mix 1 Emesis 0 Oral Regurgitation 0 Other: # Voids Urine, Voided 1 # Bowel Movements 1 1 - Medications Active Medications: Active Medications Generic Name Dose Route Start Last Admin Trade Name Freq PRN Reason Stop Dose Admin Folic Acid 1 mg 01/06/18 10:00 01/06/18 10:00 Folic Acid PO 1 mg DAILY [facility]KI Administration Ceftriaxone Sodium 1 gm/ 100 mls @ 100 mls/hr 01/02/18 10:00 01/06/18 10:00 Sodium Chloride IVPB 100 mls/hr DAILY MIKI Administration Protocol Lactulose 20 gm 01/04/18 09:45 01/06/18 14:00 Enulose PO Not Given Q8 MIKI Lorazepam 1 mg 01/02/18 12:52 01/04/18 03:59 Ativan IVP 1 mg Q6H PRN Administration Symptoms of alcohol withdrawl Multivitamins 1 tab 01/05/18 12:15 01/06/18 10:00 Hexavitamin PO 1 tab DAILY MIKI Administration Pantoprazole Sodium 40 mg 01/05/18 18:00 01/06/18 10:00 Protonix Ec Tab PO 40 mg BID MIKI Administration Thiamine HCl 100 mg 01/02/18 10:00 01/06/18 10:01 Vitamin B1 Inj IV 100 mg DAILY MIKI Administration Zolpidem Tartrate 5 mg 01/05/18 20:33 01/05/18 21:02 Ambien PO 5 mg HS PRN Administration Insomnia - Patient Studies Lab Studies: Microbiology Studies 01/02/18 09:30 Blood Culture - Preliminary Blood NO GROWTH AFTER 4 DAYS 01/02/18 09:00 Blood Culture - Preliminary Blood NO GROWTH AFTER 4 DAYS Lab Studies 01/06/18 01/06/18 01/06/18 Range/Units 12:35 05:51 05:51 WBC 5.5 D 3.5 L (4.8-10.8) K/uL RBC 2.75 L 2.41 L (4.40-5.90) Mil/uL Hgb 8.4 L 7.4 L (12.0-18.0) g/dL Hct 25.2 L 21.9 L (35.0-51.0) % MCV 91.7 90.7 D (80.0-94.0) fL MCH 30.4 30.6 (27.0-31.0) pg MCHC 33.2 33.7 (33.0-37.0) g/dL RDW 17.8 H 17.5 H (11.5-14.5) % Plt Count 66 L 60 L (130-400) K/uL MPV 8.4 8.5 (7.2-11.7) fL Neut % (Auto) 61.0 57.8 (50.0-75.0) % Lymph % (Auto) 24.0 25.8 (20.0-40.0) % [place] % (Auto) 11.0 H 10.6 H (0.0-10.0) % Eos % (Auto) 3.6 4.5 H (0.0-4.0) % Baso % (Auto) 0.4 1.3 (0.0-2.0) % Neut # (Auto) 3.4 2.0 (1.8-7.0) K/uL Lymph # (Auto) 1.3 0.9 L (1.0-4.3) K/uL [place] # (Auto) 0.6 0.4 (0.0-0.8) K/uL Eos # (Auto) 0.2 0.2 (0.0-0.7) K/uL Baso # (Auto) 0.0 0.0 (0.0-0.2) K/uL Differential Comment Sodium 138 (132-148) mmol/L Potassium 3.6 (3.6-5.2) mmol/L Chloride 109 H (98-107) mmol/L Carbon Dioxide 24 (22-30) mmol/L Anion Gap 8 L (10-20) BUN 10 (9-20) mg/dL Creatinine 0.8 (0.8-1.5) mg/dL Est GFR ( Amer) > 60 Est GFR (Non-Af Amer) > 60 Random Glucose 101 (75-110) mg/dL Calcium 7.5 L (8.6-10.4) mg/dl Phosphorus 3.7 (2.5-4.5) mg/dL Magnesium 1.9 (1.6-2.3) mg/dL Total Bilirubin 3.8 H (0.2-1.3) mg/dL AST 70 H (17-59) U/L ALT 40 (21-72) U/L Alkaline Phosphatase 70 (38-126) U/L Ammonia (9-33) umol/L Total Protein 5.1 L (6.3-8.3) g/dL Albumin 2.0 L (3.5-5.0) g/dL Globulin 3.1 (2.2-3.9) gm/dL Albumin/Globulin Ratio 0.6 L (1.0-2.1) 01/06/18 Range/Units 04:00 WBC (4.8-10.8) K/uL RBC (4.40-5.90) Mil/uL Hgb (12.0-18.0) g/dL Hct (35.0-51.0) % MCV (80.0-94.0) fL MCH (27.0-31.0) pg MCHC (33.0-37.0) g/dL RDW (11.5-14.5) % Plt Count (130-400) K/uL MPV (7.2-11.7) fL Neut % (Auto) (50.0-75.0) % Lymph % (Auto) (20.0-40.0) % [place] % (Auto) (0.0-10.0) % Eos % (Auto) (0.0-4.0) % Baso % (Auto) (0.0-2.0) % Neut # (Auto) (1.8-7.0) K/uL Lymph # (Auto) (1.0-4.3) K/uL [place] # (Auto) (0.0-0.8) K/uL Eos # (Auto) (0.0-0.7) K/uL Baso # (Auto) (0.0-0.2) K/uL Differential Comment Sodium (132-148) mmol/L Potassium (3.6-5.2) mmol/L Chloride (98-107) mmol/L Carbon Dioxide (22-30) mmol/L Anion Gap (10-20) BUN (9-20) mg/dL Creatinine (0.8-1.5) mg/dL Est GFR ( Amer) Est GFR (Non-Af Amer) Random Glucose (75-110) mg/dL Calcium (8.6-10.4) mg/dl Phosphorus (2.5-4.5) mg/dL Magnesium (1.6-2.3) mg/dL Total Bilirubin (0.2-1.3) mg/dL AST (17-59) U/L ALT (21-72) U/L Alkaline Phosphatase (38-126) U/L Ammonia 31 D (9-33) umol/L Total Protein (6.3-8.3) g/dL Albumin (3.5-5.0) g/dL Globulin (2.2-3.9) gm/dL Albumin/Globulin Ratio (1.0-2.1) Laboratory Results - last 24 hr 01/06/18 01/06/18 01/06/18 04:00 05:51 05:51 WBC 3.5 L RBC 2.41 L Hgb 7.4 L Hct 21.9 L MCV 90.7 D MCH 30.6 MCHC 33.7 RDW 17.5 H Plt Count 60 L MPV 8.5 Neut % (Auto) 57.8 Lymph % (Auto) 25.8 [place] % (Auto) 10.6 H Eos % (Auto) 4.5 H Baso % (Auto) 1.3 Neut # (Auto) 2.0 Lymph # (Auto) 0.9 L [place] # (Auto) 0.4 Eos # (Auto) 0.2 Baso # (Auto) 0.0 Differential Comment Sodium 138 Potassium 3.6 Chloride 109 H Carbon Dioxide 24 Anion Gap 8 L BUN 10 Creatinine 0.8 Est GFR ( Amer) > 60 Est GFR (Non-Af Amer) > 60 Random Glucose 101 Calcium 7.5 L Phosphorus 3.7 Magnesium 1.9 Total Bilirubin 3.8 H AST 70 H ALT 40 Alkaline Phosphatase 70 Ammonia 31 D Total Protein 5.1 L Albumin 2.0 L Globulin 3.1 Albumin/Globulin Ratio 0.6 L 01/06/18 12:35 WBC 5.5 D RBC 2.75 L Hgb 8.4 L Hct 25.2 L MCV 91.7 MCH 30.4 MCHC 33.2 RDW 17.8 H Plt Count 66 L MPV 8.4 Neut % (Auto) 61.0 Lymph % (Auto) 24.0 [place] % (Auto) 11.0 H Eos % (Auto) 3.6 Baso % (Auto) 0.4 Neut # (Auto) 3.4 Lymph # (Auto) 1.3 [place] # (Auto) 0.6 Eos # (Auto) 0.2 Baso # (Auto) 0.0 Differential Comment Sodium Potassium Chloride Carbon Dioxide Anion Gap BUN Creatinine Est GFR ( Amer) Est GFR (Non-Af Amer) Random Glucose Calcium Phosphorus Magnesium Total Bilirubin AST ALT Alkaline Phosphatase Ammonia Total Protein Albumin Globulin Albumin/Globulin Ratio Critical Care Progress Note - Nutrition Nutrition: Nutrition Category Date Time Status Heart Healthy Diet [DIET] Diets 01/05/18 Breakfast Active Attending/Attestation - Attestation I have personally seen and examined this patient.: Yes I have fully participated in the care of the patient.: Yes I have reviewed all pertinent clinical information: Yes Notes (Text): 01/06/18 16:59 Today: January The Patient was seen and examined at the bedside, Medical records reviewed, and management issues were discussed and formulated with the house staff. I have reviewed all the relevant clinical, laboratory, hemodynamic, radiographic data and medications Events reviewed Pain issues, skin care, head of the bed elevation, glycemic control were addressed. Agree with above resident's assessment and treatment plans of care as transcribed in Dr. Palmer's note.
--- NOTE | 2018-01-06 16:02 | CP.PCM.PN ---
Subjective - Date & Time of Evaluation Date of Evaluation: 01/06/18 Time of Evaluation: 16:00 - Subjective Subjective: Patient denies having abdominal pain, nausea, vomiting. The bowel movements remain dark. Objective - Vital Signs/Intake and Output Vital Signs (last 24 hours): Temp Pulse Resp BP Pulse Ox 98.2 F 77 11 L 110/74 99 01/06/18 12:00 01/06/18 13:00 01/06/18 13:00 01/06/18 11:24 01/06/18 12:00 Intake and Output: 01/06/18 01/06/18 06:59 18:59 Intake Total 480 570 Output Total 520 301 Balance -40 269 - Medications Medications: Current Medications Folic Acid (Folic Acid) 1 mg PO DAILY [facility] Last Admin: 01/06/18 10:00 Dose: 1 mg Ceftriaxone Sodium 1 gm/ (Sodium Chloride) 100 mls @ 100 mls/hr IVPB DAILY [facility] PRN Reason: Protocol Last Admin: 01/06/18 10:00 Dose: 100 mls/hr Lactulose (Enulose) 20 gm PO Q8 [facility] Last Admin: 01/06/18 14:00 Dose: Not Given Lorazepam (Ativan) 1 mg IVP Q6H PRN PRN Reason: Symptoms of alcohol withdrawl Last Admin: 01/04/18 03:59 Dose: 1 mg Multivitamins (Hexavitamin) 1 tab PO DAILY [facility] Last Admin: 01/06/18 10:00 Dose: 1 tab Pantoprazole Sodium (Protonix Ec Tab) 40 mg PO BID [facility] Last Admin: 01/06/18 10:00 Dose: 40 mg Thiamine HCl (Vitamin B1 Inj) 100 mg IV DAILY [facility] Last Admin: 01/06/18 10:01 Dose: 100 mg Zolpidem Tartrate (Ambien) 5 mg PO HS PRN PRN Reason: Insomnia Last Admin: 01/05/18 21:02 Dose: 5 mg - Labs Labs: 01/06/18 12:35 01/06/18 05:51 PT 22.9 SECONDS (9.7-12.2) H 01/03/18 06:36 INR 2.1 01/03/18 06:36 APTT 32 SECONDS (21-34) D 01/02/18 20:06 - Constitutional Appears: No Acute Distress - Head Exam Head Exam: ATRAUMATIC, NORMOCEPHALIC - Eye Exam Eye Exam: EOMI, PERRL - Neck Exam Neck Exam: absent: Lymphadenopathy, Thyromegaly - Respiratory Exam Respiratory Exam: NORMAL BREATHING PATTERN. absent: Rales, Rhonchi, Wheezes - Cardiovascular Exam Cardiovascular Exam: REGULAR RHYTHM, +S1, +S2. absent: Gallop, Rubs, Murmur - GI/Abdominal Exam GI & Abdominal Exam: Distended, Soft, Normal Bowel Sounds. absent: Tenderness, Mass, Organomegaly - Rectal Exam Rectal Exam: Deferred - Extremities Exam Extremities Exam: absent: Calf Tenderness, Pedal Edema Assessment and Plan (1) Alcoholic cirrhosis Assessment & Plan: Patient has alcoholic cirrhoisi complicated by varices, coagulopathy, splenomegaly, thrombocytopenia and encephalopathy. The ultrasound showed increased ascites compared with the study done last month. We should continue low sodium diet and resume spironolactone 100mg once daily and furosemide 40 mg once daily. Status: Chronic
[2018-01-07 06:42] LABS: BASO # 0.1 K/uL (0.0-0.2); EOS # 0.1 K/uL (0.0-0.7); EOS % 3.7 % (0.0-4.0); HEMOGLOBIN 7.8 g/dL (12.0-18.0); LYMPH # 1.1 K/uL (1.0-4.3); LYMPH % 27.3 % (20.0-40.0); MEAN CELL VOLUME 90.1 fL (80.0-94.0); MEAN CORPUSCULAR HGB CONC 34.3 g/dL (33.0-37.0); MEAN PLATELET VOLUME 8.4 fL (7.2-11.7); MONO # 0.4 K/uL (0.0-0.8); MONO % 11.4 % (0.0-10.0); NEUT # 2.2 K/uL (1.8-7.0); NEUT % 55.6 % (50.0-75.0); RBC 2.51 Mil/uL (4.40-5.90); RED CELL DISTRIBUTION WIDTH 17.2 % (11.5-14.5); WHITE BLOOD COUNT 3.9 K/uL (4.8-10.8)
[2018-01-07 06:53] LABS: ALB/GLOB RATIO 0.6 (1.0-2.1); ALT/SGPT 38 U/L (21-72); AST/SGOT 68 U/L (17-59); BLOOD UREA NITROGEN 8 mg/dL (9-20); CALCIUM 7.4 mg/dl (8.6-10.4); GFR NON-AFRICAN AMERICAN > 60
--- NOTE | 2018-01-07 08:04 | CP.PCM.PN ---
Subjective - Date & Time of Evaluation Date of Evaluation: 01/07/18 Time of Evaluation: 08:00 - Subjective Subjective: Patient denies having nausea, vomiting, abdominal pain. The bowel movements are slightly less dark (more brown). His appetite is good, and he is requesting an extra tray with each meal. Objective - Vital Signs/Intake and Output Vital Signs (last 24 hours): Temp Pulse Resp BP Pulse Ox 98.1 F 75 20 134/87 96 01/07/18 00:00 01/06/18 20:00 01/06/18 20:00 01/06/18 20:00 01/06/18 20:00 Intake and Output: 01/07/18 01/07/18 06:59 18:59 Intake Total 850 Output Total 1000 Balance -150 - Medications Medications: Current Medications Folic Acid (Folic Acid) 1 mg PO DAILY [facility] Last Admin: 01/06/18 10:00 Dose: 1 mg Ceftriaxone Sodium 1 gm/ (Sodium Chloride) 100 mls @ 100 mls/hr IVPB DAILY [facility] PRN Reason: Protocol Last Admin: 01/06/18 10:00 Dose: 100 mls/hr Lactulose (Enulose) 20 gm PO Q8 [facility] Last Admin: 01/07/18 07:32 Dose: 20 gm Lorazepam (Ativan) 1 mg IVP Q6H PRN PRN Reason: Symptoms of alcohol withdrawl Last Admin: 01/04/18 03:59 Dose: 1 mg Multivitamins (Hexavitamin) 1 tab PO DAILY [facility] Last Admin: 01/06/18 10:00 Dose: 1 tab Pantoprazole Sodium (Protonix Ec Tab) 40 mg PO BID [facility] Last Admin: 01/06/18 17:45 Dose: 40 mg Thiamine HCl (Vitamin B1 Inj) 100 mg IV DAILY [facility] Last Admin: 01/06/18 10:01 Dose: 100 mg Zolpidem Tartrate (Ambien) 5 mg PO HS PRN PRN Reason: Insomnia Last Admin: 01/06/18 21:09 Dose: 5 mg - Labs Labs: 01/07/18 06:38 01/07/18 06:38 PT 22.9 SECONDS (9.7-12.2) H 01/03/18 06:36 INR 2.1 01/03/18 06:36 APTT 32 SECONDS (21-34) D 01/02/18 20:06 - Constitutional Appears: No Acute Distress - Head Exam Head Exam: ATRAUMATIC, NORMOCEPHALIC - Eye Exam Eye Exam: EOMI, PERRL - Neck Exam Neck Exam: absent: Lymphadenopathy, Thyromegaly - Respiratory Exam Respiratory Exam: NORMAL BREATHING PATTERN. absent: Rales, Rhonchi, Wheezes - Cardiovascular Exam Cardiovascular Exam: REGULAR RHYTHM, +S1, +S2. absent: Gallop, Rubs, Murmur - GI/Abdominal Exam GI & Abdominal Exam: Soft, Normal Bowel Sounds. absent: Tenderness, Mass, Organomegaly - Rectal Exam Rectal Exam: Deferred - Extremities Exam Extremities Exam: absent: Calf Tenderness, Pedal Edema Assessment and Plan (1) Alcoholic cirrhosis Assessment & Plan: Bilirubin is improving, down to 3.2 this morning. Diuretics have been started. HGB today is 7.8, down from 8.4 yesterday. Will repeat the CBC this afternoon. Status: Chronic
--- NOTE | 2018-01-07 08:27 | CP.PCM.DIS ---
Provider - Provider Date of Admission: 01/02/18 06:36 Attending physician: Todd Cortés MD Consults: SAM Holly Time Spent in preparation of Discharge (in minutes): 40 Hospital Course - Lab Results Lab Results: Micro Results 01/02/18 09:30 Blood Blood Culture - Preliminary NO GROWTH AFTER 4 DAYS 01/02/18 09:00 Blood Blood Culture - Preliminary NO GROWTH AFTER 4 DAYS 01/02/18 14:22 Urine Urine Culture - Final 10-50,000 CFU/ML. MULTIPLE SPECIES. PROBABLE CONTAMINATION. 01/02/18 09:49 Naris MRSA Culture (Admit) - Final MRSA NOT DETECTED Most Recent Lab Values WBC 3.9 K/uL (4.8-10.8) L 01/07/18 06:38 RBC 2.51 Mil/uL (4.40-5.90) L 01/07/18 06:38 Hgb 7.8 g/dL (12.0-18.0) L 01/07/18 06:38 Hct 22.6 % (35.0-51.0) L 01/07/18 06:38 MCV 90.1 fL (80.0-94.0) 01/07/18 06:38 MCH 31.0 pg (27.0-31.0) 01/07/18 06:38 MCHC 34.3 g/dL (33.0-37.0) 01/07/18 06:38 RDW 17.2 % (11.5-14.5) H 01/07/18 06:38 Plt Count 57 K/uL (130-400) L 01/07/18 06:38 MPV 8.4 fL (7.2-11.7) 01/07/18 06:38 Neut % (Auto) 55.6 % (50.0-75.0) 01/07/18 06:38 Lymph % (Auto) 27.3 % (20.0-40.0) 01/07/18 06:38 Pettis % (Auto) 11.4 % (0.0-10.0) H 01/07/18 06:38 Eos % (Auto) 3.7 % (0.0-4.0) 01/07/18 06:38 Baso % (Auto) 2.0 % (0.0-2.0) 01/07/18 06:38 Neut # (Auto) 2.2 K/uL (1.8-7.0) 01/07/18 06:38 Lymph # (Auto) 1.1 K/uL (1.0-4.3) 01/07/18 06:38 Pettis # (Auto) 0.4 K/uL (0.0-0.8) 01/07/18 06:38 Eos # (Auto) 0.1 K/uL (0.0-0.7) 01/07/18 06:38 Baso # (Auto) 0.1 K/uL (0.0-0.2) 01/07/18 06:38 Differential Comment 01/06/18 05:51 PT 22.9 SECONDS (9.7-12.2) H 01/03/18 06:36 INR 2.1 01/03/18 06:36 APTT 32 SECONDS (21-34) D 01/02/18 20:06 Sodium 136 mmol/L (132-148) 01/07/18 06:38 Potassium 3.6 mmol/L (3.6-5.2) 01/07/18 06:38 Chloride 107 mmol/L (98-107) 01/07/18 06:38 Carbon Dioxide 23 mmol/L (22-30) 01/07/18 06:38 Anion Gap 9 (10-20) L 01/07/18 06:38 BUN 8 mg/dL (9-20) L 01/07/18 06:38 Creatinine 0.7 mg/dL (0.8-1.5) L 01/07/18 06:38 Est GFR ( Amer) > 60 01/07/18 06:38 Est GFR (Non-Af Amer) > 60 01/07/18 06:38 POC Glucose (mg/dL) 114 mg/dL (65-110) H 01/02/18 05:58 Random Glucose 89 mg/dL (75-110) 01/07/18 06:38 Calcium 7.4 mg/dl (8.6-10.4) L 01/07/18 06:38 Phosphorus 3.3 mg/dL (2.5-4.5) 01/07/18 06:38 Magnesium 1.8 mg/dL (1.6-2.3) 01/07/18 06:38 Total Bilirubin 3.2 mg/dL (0.2-1.3) H 01/07/18 06:38 AST 68 U/L (17-59) H 01/07/18 06:38 ALT 38 U/L (21-72) 01/07/18 06:38 Alkaline Phosphatase 74 U/L (38-126) 01/07/18 06:38 Ammonia 31 umol/L (9-33) D 01/06/18 04:00 Total Protein 5.2 g/dL (6.3-8.3) L 01/07/18 06:38 Albumin 2.0 g/dL (3.5-5.0) L 01/07/18 06:38 Globulin 3.2 gm/dL (2.2-3.9) 01/07/18 06:38 Albumin/Globulin Ratio 0.6 (1.0-2.1) L 01/07/18 06:38 Ur Random Sodium 5 mmol/L 01/06/18 21:29 Stool Occult Blood Positive (NEGATIVE) H 01/02/18 06:15 Urine Opiates Screen Negative (NEGATIVE) 01/02/18 14:22 Urine Methadone Screen Negative (NEGATIVE) 01/02/18 14:22 Ur Barbiturates Screen Negative (NEGATIVE) 01/02/18 14:22 Ur Phencyclidine Scrn Negative (NEGATIVE) 01/02/18 14:22 Ur Amphetamines Screen Negative (NEGATIVE) 01/02/18 14:22 U Benzodiazepines Scrn Positive (NEGATIVE) 01/02/18 14:22 U Oth Cocaine Metabols Negative (NEGATIVE) 01/02/18 14:22 U Cannabinoids Screen Positive (NEGATIVE) H 01/02/18 14:22 Alcohol, Quantitative < 10 mg/dl (0-10) 01/02/18 09:50 Hepatitis A IgM Ab Negative (NEGATIVE) 01/03/18 06:33 Hep Bs Antigen Negative (NEGATIVE) 01/03/18 06:33 Hep B Core IgM Ab Negative (NEGATIVE) 01/03/18 06:33 Hepatitis C Antibody Negative (NEGATIVE) 01/03/18 06:33 Blood Type O POSITIVE 01/02/18 06:20 Antibody Screen Negative 01/02/18 06:20 - Hospital Course Hospital Course: Hospitalist Discharge Patient was seen and examined at 8:00 AM 01/07/18 ICU Bed 4 42 year old male who was admitted 01/02/18 for evaluation of likely Upper GI Bleeding. Patient was admitted to [facility] on 12/11/17 through 12/18/17 at which time he was diagnosed with Esophageal Varices. Please see Full Medical Record and Assessment and Plans below for further details for his hospital stay Upon ROS: Bowel movement last night more brown and not as black NO SOB/coug/wheezing NO chest pain NO abdominal pain NO n/v/d/c NO lightheadedness/dizziness NO palpitations NO other complaints upon FULL ROS Patient will follow up with [facility] and through them will arrange for appointment with the Liver Clinic at [facility] General: AAO x 3, NAD HEENT: NCA, PERRLA, EOMI, Scleral Incterus NO pharyngeal erythema/exudate, NO lymphadenopathy, NO thyromegaly Cardio: NS1 and NS2, NO M/R/G Resp: CTA B/L, NO R/R/W GI: BSx4 reduced, Distention, Soft, Liver and Spleen palpation not attempted, NT , NO guarding/rebound tenderness Ext: Pulses are strong and equal bilateral UE and LE, 2+ pitting edema bilateral LE from feet to knees, NON-pitting edema of the bilateral lower arms Neuro: CN II through XII were grossly intact Skin: Jaundice Assessment and Plan: 1). Upper GI Bleed Secondary to Marsha Bustamante Tear and Hx of Esophageal Varices Upper EGD performed by GI Dr. Holly on morning 01/03/18: Marsha Bustamante Tear with stigmata of bleeding that did not respond to Epinephrine Injection but was then bandded. Also showed small hiatal hernia. Patient received multiple PRBC and FFP in the ICU Octreotide 50 mcg/hr IV was discontinued 01/05/18 Protonix 8 mg/hr IV was changed to 40 mg PO 2x/day Heart Healthy Diet Please note patient was also hospitalized at a hospital in [place] in August 2017 for bleeding Esophageal Varices and they were ligated at that time. Patient states that he is now living in [place]. 2). Hx Chronic Cholecystitis U/S Abdomen last admission here at [facility] showed cirrhotic liver, mulitple gallstones with thickened gallbladder wall and mild pericholecystic fluid with normal bile duct However not a good surgical candidate and GI recommended lap patricia when his liver disease was more stable Also please note that prior to [facility] admission on 12/11/17 patient was hospitalized for this issue in early December but then signed out AMA 3). Hx Liver Cirrhosis Ceftriaxone 1 gm IV 1x/day was given from time of admission to discharge Amonnia level elevated and therefore was started on Lactulose 20 mg PO Q8H: it is has normalized Will need to follow up with GI/Liver Clinic at [facility] in [place] through [facility] as an outpatient U/S Abdomen 01/06/18 showed Ascites, Hepatosplenomegaly GI Dr. Holly's recommendations for medications: Protonix 40 mg PO 1x/day Propranolol 20 mg PO 1x/day Lactulose 20 gm PO 1x/day Spiranolactone 100 mg PO 1x/day Lasix 40 mg PO 1x/day 4). Hx Alcohol Abuse Counseled 01/03/18 and states that he has not quit since his current admission Folic Acid 1 mg PO 1x/day Thiamine 100 mg PO 1x/day MVI Precedex drip was discontinued 01/05/18 Ativan 1 mg IV Q6H PRN NO signs of withdrawl on exam 5). Hx Nicotine Abuse Counseled on 01/03/18 Will start Nicotine Patch once more stable 6). Hx MultiDrugAbuse: PCP, Marijuana 7). Prophylaxis Protonix 40 mg PO 2x/day NO anticoagulation secondary to GI Bleed SCDs Heart Healthy Diet Dose of Vitamin K given 01/04/18 Blood Culture 01/02/18 is negative to date Urine Culture 01/02/18 shows probable contamination The following instructions were explained to the patient and a copy will need to be provided to him upon discharge: 1). You stated that you do not have a primary care physician. Therefore please schedule follow up with one of the following clinics (which ever one that you can obtain the earliest appointment) to help coordinate your health care: [facility] Floor B of [facility] ([phone]) [address] [facility] ([phone]) [address] [place] [address] 2). Through one of the clinics mentioned above you will need to arrange evaluation by the Liver Clinic at [facility] in [place], [place] 3). You must obtain help quitting drinking as this is killing you. Please attend 12 step AA meetings at [facility] located at [address] [facility] in [place], [place]. The number is [phone]. 4). Please have the following prescriptions filled at your pharmacy on your way home from the hospital and use as directed. The prescriptions are only for 30 days and future prescriptions will have to be obtained through one of the clinic that you choose to help coordinate your health care: Protonix 40 mg, 1 tablet by mouth 1 time a day (8 AM), Dispense #30, No refills Spiranolactone 100 mg, 1 tablet by mouth 1 time a day (8 AM), Dispense #30, No refills Lactulose 20 gm, 1 tablet by mouth 1 time a day (8 AM), Dispense #30, No refills Furosemide 40 mg, 1 tablet by mouth 1 time a day (2 PM), Dispense #30, No refills Propranolol 20 mg, 1 tablet by mouth 1 time a day (8 PM), Dispense #30, No refills 5). You requested a recommendation for what to bring for a celebration honoring [employer]. Please go to any [employer] store on [facility] in [place] and request a small box of Ladoo or Ladava. 6). You are stronger than you give yourself credit for. You have been through a tough time, but you have to keep moving forward and seize all the good things that this life has to offer. Todd Cortés D.o. Discharge Exam - Head Exam Head Exam: ATRAUMATIC, NORMOCEPHALIC Discharge Plan - Discharge Medications Prescriptions: Furosemide 40 mg PO DAILY #30 tablet Lactulose [Kristalose] 20 gm PO DAILY #30 packet Pantoprazole [Protonix EC Tab] 40 mg PO DAILY #30 ect Propranolol [Inderal] 20 mg PO DAILY #30 tab Spironolactone 100 mg PO DAILY #30 tablet - Follow Up Plan Condition: GUARDED Disposition: HOME/ ROUTINE Instructions: Alcohol Use - When Is Drinking a Problem?, Gastrointestinal Bleeding (DC), Alcohol Withdrawal (DC), Esophageal Varices (DC), Normocytic Normochromic Anemia (DC) Additional Instructions: The following instructions were explained to the patient and a copy will need to be provided to him upon discharge: 1). You stated that you do not have a primary care physician. Therefore please schedule follow up with one of the following clinics (which ever one that you can obtain the earliest appointment) to help coordinate your health care: [facility] Floor B of [facility] ([phone]) [address] [facility] ([phone]) [address] [place], [place] 2). Through one of the clinics mentioned above you will need to arrange evaluation by the Liver Clinic at [facility] in [place], [place] 3). You must obtain help quitting drinking as this is killing you. Please attend 12 step AA meetings at [facility] located at [address] [place] [address] in [place], [place]. The number is [phone]. 4). Please have the following prescriptions filled at your pharmacy on your way home from the hospital and use as directed. The prescriptions are only for 30 days and future prescriptions will have to be obtained through one of the clinic that you choose to help coordinate your health care: Protonix 40 mg, 1 tablet by mouth 1 time a day (8 AM), Dispense #30, No refills Spiranolactone 100 mg, 1 tablet by mouth 1 time a day (8 AM), Dispense #30, No refills Lactulose 20 gm, 1 tablet by mouth 1 time a day (8 AM), Dispense #30, No refills Furosemide 40 mg, 1 tablet by mouth 1 time a day (2 PM), Dispense #30, No refills Propranolol 20 mg, 1 tablet by mouth 1 time a day (8 PM), Dispense #30, No refills 5). You requested a recommendation for what to bring for a celebration honoring [employer]. Please go to any [employer] grocery store on [facility] in [place] and request a small box of Ladoo or Ladava. 6). You are stronger than you give yourself credit for. You have been through a tough time, but you have to keep moving forward and seize all the good things that this life has to offer.
[2018-01-07] MEDS: Thiamine 100 mg/ml Inj IV SCH (10:36)
[2018-01-07] MEDS: Pantoprazole 40 mg EC Tab PO SCH (10:36)
[2018-01-07] MEDS: Multiple Vitamins Tab PO SCH (10:36)
[2018-01-07 10:45] LABS: BASO # 0.1 K/uL (0.0-0.2); BASO % 1.4 % (0.0-2.0); EOS # 0.1 K/uL (0.0-0.7); EOS % 3.1 % (0.0-4.0); MEAN CELL VOLUME 90.9 fL (80.0-94.0); MEAN CORPUSCULAR HEMOGLOBIN 30.6 pg (27.0-31.0); MEAN CORPUSCULAR HGB CONC 33.6 g/dL (33.0-37.0); MEAN PLATELET VOLUME 8.8 fL (7.2-11.7); MONO # 0.3 K/uL (0.0-0.8); MONO % 7.9 % (0.0-10.0); NEUT # 2.6 K/uL (1.8-7.0); NEUT % 63.6 % (50.0-75.0); RBC 2.62 Mil/uL (4.40-5.90); RED CELL DISTRIBUTION WIDTH 17.6 % (11.5-14.5); WHITE BLOOD COUNT 4.1 K/uL (4.8-10.8)
[2018-01-07 12:05] VITALS: BP 116/74; PULSE 90; RESP 20; TEMP 98.7; O2SAT 99
== END 2018-01-07 13:30 | disposition home or self-care (01) | DRG 368 ==
LOC: C.ER 05:47 → C.9E 06:36 → C.9I 08:08
PROVIDERS: ADMIT Family Medicine; ATTEND Family Medicine
PROC: 30233K1 Transfusion of Nonautologous Frozen Plasma into Peripheral Vein, Percutaneous Approach (ICD-10-PCS; 2018-01-02)
PROC: 30233N1 Transfusion of Nonautologous Red Blood Cells into Peripheral Vein, Percutaneous Approach (ICD-10-PCS; 2018-01-02)
PROC: 3E0G8GC Introduction of Other Therapeutic Substance into Upper GI, Via Natural or Artificial Opening Endoscopic (ICD-10-PCS; principal; 2018-01-04)
PROC: 06L38CZ Occlusion of Esophageal Vein with Extraluminal Device, Via Natural or Artificial Opening Endoscopic (ICD-10-PCS; 2018-01-04)
DX: K22.6 Gastro-esophageal laceration-hemorrhage syndrome (principal); I85.11 Secondary esophageal varices with bleeding; D62 Acute posthemorrhagic anemia; K44.9 Diaphragmatic hernia without obstruction or gangrene; K70.31 Alcoholic cirrhosis of liver with ascites; K72.90 Hepatic failure, unspecified without coma; K21.0 Gastro-esophageal reflux disease with esophagitis; F12.90 Cannabis use, unspecified, uncomplicated; K80.80 Other cholelithiasis without obstruction; F17.210 Nicotine dependence, cigarettes, uncomplicated; Z91.14 Patient's other noncompliance with medication regimen; Z87.01 Personal history of pneumonia (recurrent)

== ENCOUNTER 2018-01-13 15:01 | Inpatient (IN) | payer MEDICAID ==
[2018-01-13 16:13] LABS: BASO # 0.1 K/uL (0.0-0.2); BASO % 1.7 % (0.0-2.0); EOS # 0.1 K/uL (0.0-0.7); LYMPH # 1.6 K/uL (1.0-4.3); LYMPH % 34.2 % (20.0-40.0); MEAN CELL VOLUME 88.9 fL (80.0-94.0); MEAN CORPUSCULAR HGB CONC 32.7 g/dL (33.0-37.0); MEAN PLATELET VOLUME 8.9 fL (7.2-11.7); MONO # 0.6 K/uL (0.0-0.8); MONO % 12.7 % (0.0-10.0); NEUT # 2.3 K/uL (1.8-7.0); NEUT % 48.4 % (50.0-75.0); NRBC % 0.1 % (0.0-2.0); RBC 2.77 Mil/uL (4.40-5.90); RED CELL DISTRIBUTION WIDTH 18.9 % (11.5-14.5); WHITE BLOOD COUNT 4.8 K/uL (4.8-10.8)
[2018-01-13 16:16] LABS: INR 1.8
--- NOTE | 2018-01-13 16:16 | C.PDOC ---
History Of Present Illness 42 y/o male with history of Cirrhosis presents to ED with c/o swollen abdomen and swollen legs for "couple of days" associated with sob. Patient was discharged from ICU recently and today was sent by Dr. Vega for Paracentesis procedure. Patient denies fever, chills, vomiting or any other complaints at this time. Time Seen by Provider: 01/13/18 15:42 Chief Complaint (Nursing): Abdominal Pain History Per: Patient History/Exam Limitations: no limitations Onset/Duration Of Symptoms: Days Current Symptoms Are (Timing): Still Present Past Medical History Reviewed: Historical Data, Nursing Documentation, Vital Signs Vital Signs: Last Vital Signs Temp 98.8 F 01/13/18 15:05 Pulse 81 01/13/18 15:05 Resp 16 01/13/18 15:05 BP 113/67 01/13/18 15:05 Pulse Ox 100 01/13/18 17:27 - Medical History PMH: Gastritis, Gall Bladder Disease, Pneumonia Surgical History: No Surg Hx - [facility] Procedures (01/02/18) INSPECTION OF UPPER INTESTINAL TRACT, ENDO (12/11/17) INTRODUCTION OF OTHER THERAPEUTIC SUBSTANCE INTO UP GI, ENDO (01/02/18) TRANSFUSE NONAUT FROZEN PLASMA IN PERIPH VEIN, PERC (01/02/18) TRANSFUSE NONAUT RED BLOOD CELLS IN PERIPH VEIN, PERC (01/02/18) Family History: States: No Known Family Hx - Social History Hx Alcohol Use: Yes (IN THE PAST) Hx Substance Use: Yes (IN THE PAST) - Immunization History Hx Tetanus Toxoid Vaccination: No Hx Influenza Vaccination: Yes Hx Pneumococcal Vaccination: Yes Review Of Systems Constitutional: Negative for: Fever, Chills Cardiovascular: Negative for: Chest Pain Respiratory: Positive for: Shortness of Breath Gastrointestinal: Positive for: Abdominal Pain. Negative for: Nausea, Vomiting Skin: Negative for: Rash Physical Exam - Physical Exam Appears: Non-toxic, No Acute Distress Skin: Warm, Dry, No Rash Head: Atraumatic, Normacephalic Eye(s): bilateral: Normal Inspection Oral Mucosa: Moist Cardiovascular: Rhythm Regular Respiratory: Normal Breath Sounds, No Rales, No Rhonchi, No Wheezing Gastrointestinal/Abdominal: Distention (severe), No Guarding, No Rebound Back: No CVA Tenderness Extremity: Pedal Edema (+3 pitting), No Deformity Neurological/Psych: Oriented x3, Normal Speech, Normal Cognition, Normal Motor, Normal Sensation ED Course And Treatment - Laboratory Results Result Diagrams: 01/13/18 16:02 01/13/18 16:02 O2 Sat by Pulse Oximetry: 100 (RA) Pulse Ox Interpretation: Normal Medical Decision Making Medical Decision Making: The case was discussed with Dr. Hendrix (hospitalist oncall) who agrees to admit the patient to her service. Disposition - Disposition Disposition: HOSPITALIZED Disposition Time: 17:26 Condition: FAIR - POA Present On Arrival: None - Clinical Impression Clinical Impression: Ascites, Esophageal varices, Cirrhosis - PA / PIGMENT MIXER / Resident Statement MD/DO has reviewed & agrees with the documentation as recorded. - Scribe Statement The provider has reviewed the documentation as recorded by the Rasheedibgama Zuniga All medical record entries made by the Norma were at my direction and personally dictated by me. I have reviewed the chart and agree that the record accurately reflects my personal performance of the history, physical exam, medical decision making, and the department course for this patient. I have also personally directed, reviewed, and agree with the discharge instructions and disposition.
[2018-01-13 16:29] LABS: SQUAMOUS EPITHIAL < 1 /hpf (0-5); URINE BILIRUBIN NEGATIVE (NEGATIVE); URINE BLOOD NEGATIVE (NEGATIVE); URINE CLARITY Clear (Clear); URINE COLOR Straw (YELLOW); URINE GLUCOSE (UA) NORMAL (Normal); URINE LEUKOCYTE ESTERASE NEG Leu/uL (Negative); URINE PROTEIN NEGATIVE (NEGATIVE); URINE UROBILINOGEN NORMAL mg/dL (0.2-1.0)
[2018-01-13 16:33] LABS: ALB/GLOB RATIO 0.7 (1.0-2.1); ALBUMIN 2.4 g/dL (3.5-5.0); ALT/SGPT 39 U/L (21-72); AST/SGOT 81 U/L (17-59); BLOOD UREA NITROGEN 8 mg/dL (9-20); CALCIUM 7.8 mg/dl (8.6-10.4); GFR NON-AFRICAN AMERICAN > 60; LIPASE 579 U/L (23-300)
--- NOTE | 2018-01-13 16:37 | RAD ---
Date of service: 01/13/18 Chest, one view Indication: Abdominal pain Comparison: Chest x-ray performed 12/11/17 Findings: Examination limited by habitus. The cardiomediastinal silhouette appears within normal limits of size. No focal consolidation, significant pleural effusion, or definite pneumothorax evident. Please note that chest x-ray has limited sensitivity for the detection of pulmonary masses. Degenerative changes of the spine. Re-identified right rib fracture deformities. Impression: No acute pathology identified. See above.
--- NOTE | 2018-01-13 18:13 | CP.PCM.HP ---
<Juan Pablo Mosley M - Last Filed: 01/13/18 20:12> History of Present Illness - History of Present Illness History of Present Illness: PGY1 Medicine H&P for Dr. Chino. CC: Abdominal Swelling HPI: 42 Y M w/ PMHx of esophageal varices, liver cirrhosis, gallstones, alcohol abuse, multi drug use, noncompliance, presents to ED from clinic for abdominal swelling. Patient states he was recently discharged (01/07) for esophageal varices / upper GI bleed and has been noticing that his abdomen has been increasing in size since discharge. He states abdomen is not painful, but simply discomforting from the abdominal swelling. Patient has nausea, but denies vomiting. Patient has normal bowel movements with no blood or discoloration. Additionally patient has shortness of breath with exertionn & and has lower extremity edema. Patient denies chest pain, constipation, headaches, vision changes, hearing loss, hematuria/ dysuria. Patient states he has quit drinking since last spring (2017). PMD: Dr. Vega PMHx: esophageal varices, liver cirrhosis, gallstones, alcohol abuse Meds: Protonix 40 mg PO 1x/day, Propranolol 20 mg PO 1x/day, Lactulose 20 gm PO 1x/day, Spiranolactone 100 mg PO 1x/day, Lasix 40 mg PO 1x/day PSHx: umbilical hernia repair 3+ yrs prior Allergies: NKDA SHx: Lives in a green house, smokes a pack a day every 2 weeks, past history of cocaine abuse (quit several years ago), alcohol abuse (last drink last spring) FHx: Mother - HTN, , Father - alcohol abuse- code status: DNR/DNI Present on Admission - Present on Admission Any Indicators Present on Admission: No Review of Systems - Constitutional Constitutional: absent: Anorexia, Chills, Daytime Sleepiness - EENT Eyes: absent: Blurred Vision, Diplopia, Itchy Eyes Nose/Mouth/Throat: absent: Nasal Congestion, Nasal Trauma, Sinus Pressure - Cardiovascular Cardiovascular: Dyspnea on Exertion, Leg Edema. absent: Chest Pain - Respiratory Respiratory: Dyspnea on Exertion. absent: Chest Congestion, Pain with Coughing - Gastrointestinal Gastrointestinal: Bloating, Nausea. absent: Vomiting - Genitourinary Genitourinary: absent: Difficulty Urinating, Flank Pain, Hematuria - Musculoskeletal Musculoskeletal: absent: Abnormal Gait, Joint Swelling, Muscle Weakness - Neurological Neurological: absent: Abnormal Hearing, Behavioral Changes, Dizziness Past Patient History - Infectious Disease Hx of Infectious Diseases: None - Past Medical History & Family History Past Medical History?: Yes - Past Social History Smoking Status: Light Smoker < 10 Cigarettes Daily - CARDIAC Hx Cardiac Disorders: No - PULMONARY Hx Pneumonia: Yes - NEUROLOGICAL Hx Neurological Disorder: No - HEENT Hx HEENT Problems: Yes Other/Comment: eye sight getting blurry, need to be checked - RENAL Hx Chronic Kidney Disease: No - ENDOCRINE/METABOLIC Hx Endocrine Disorders: No - HEMATOLOGICAL/ONCOLOGICAL Hx Human Immunodeficiency Virus (HIV): No - INTEGUMENTARY Hx Dermatological Problems: No - MUSCULOSKELETAL/RHEUMATOLOGICAL Hx Musculoskeletal Disorders: No - GASTROINTESTINAL Hx Gall Bladder Disease: Yes Hx Gastritis: Yes - GENITOURINARY/GYNECOLOGICAL Hx Genitourinary Disorders: No - PSYCHIATRIC Hx Substance Use: Yes (IN THE PAST) - SURGICAL HISTORY Hx Surgeries: Yes Hx Herniorrhaphy: Yes Other/Comment: umbilical hernia repair - ANESTHESIA Hx Anesthesia: Yes Hx Anesthesia Reactions: No Meds Allergies/Adverse Reactions: Allergies Allergy/AdvReac Type Severity Reaction Status Date / Time No Known Allergies Allergy Verified 01/13/18 15:05 Physical Exam - Head Exam Head Exam: ATRAUMATIC, NORMAL INSPECTION, NORMOCEPHALIC - Eye Exam Eye Exam: EOMI, Normal appearance Additional comments: R horizontal nystagmus - ENT Exam ENT Exam: Mucous Membranes Moist - Neck Exam Neck exam: Positive for: Normal Inspection - Respiratory Exam Respiratory Exam: Clear to Auscultation Bilateral, NORMAL BREATHING PATTERN. absent: Rales, Rhonchi, Wheezes - GI/Abdominal Exam GI & Abdominal Exam: Distended, Firm, Normal Bowel Sounds. absent: Guarding, Hernia, Tenderness Additional comments: + tympanic sounds, + fluid shift - Extremities Exam Extremities exam: Positive for: pedal edema Additional comments: 2+ pedal edema b/l, similar to previous admission, no calf tenderness - Back Exam Back exam: absent: CVA tenderness (L), CVA tenderness (R) - Neurological Exam Neurological exam: Alert, CN II-XII Intact, Oriented x3 - Psychiatric Exam Psychiatric exam: Normal Affect, Normal Mood - Skin Skin Exam: Dry, Intact, Normal Color, Warm Results - Vital Signs Recent Vital Signs: Last Vital Signs Temp 98.8 F 01/13/18 15:05 Pulse 81 01/13/18 15:05 Resp 16 01/13/18 15:05 BP 113/67 01/13/18 15:05 Pulse Ox 100 01/13/18 17:27 - Labs Result Diagrams: 01/13/18 16:02 01/13/18 16:02 Labs: Laboratory Results - last 24 hr 01/13/18 01/13/18 01/13/18 16:02 16:02 16:02 WBC 4.8 RBC 2.77 L Hgb 8.0 L Hct 24.6 L MCV 88.9 D MCH 29.0 MCHC 32.7 L RDW 18.9 H Plt Count 103 L D MPV 8.9 Neut % (Auto) 48.4 L Lymph % (Auto) 34.2 [place] % (Auto) 12.7 H Eos % (Auto) 3.0 Baso % (Auto) 1.7 Neut # (Auto) 2.3 Lymph # (Auto) 1.6 [place] # (Auto) 0.6 Eos # (Auto) 0.1 Baso # (Auto) 0.1 PT 20.0 H INR 1.8 APTT 40 H Sodium 134 Potassium 3.9 Chloride 104 Carbon Dioxide 25 Anion Gap 9 L BUN 8 L Creatinine 0.7 L Est GFR ( Amer) > 60 Est GFR (Non-Af Amer) > 60 Random Glucose 95 Calcium 7.8 L Total Bilirubin 2.8 H AST 81 H ALT 39 Alkaline Phosphatase 124 Total Protein 6.0 L Albumin 2.4 L Globulin 3.6 Albumin/Globulin Ratio 0.7 L Lipase 579 H Urine Color Urine Clarity Urine pH Ur Specific [place] Urine Protein Urine Glucose (UA) Urine Ketones Urine Blood Urine Nitrate Urine Bilirubin Urine Urobilinogen Ur Leukocyte Esterase Urine WBC (Auto) Ur Squamous Epith Cells 01/13/18 16:23 WBC RBC Hgb Hct MCV MCH MCHC RDW Plt Count MPV Neut % (Auto) Lymph % (Auto) [place] % (Auto) Eos % (Auto) Baso % (Auto) Neut # (Auto) Lymph # (Auto) [place] # (Auto) Eos # (Auto) Baso # (Auto) PT INR APTT Sodium Potassium Chloride Carbon Dioxide Anion Gap BUN Creatinine Est GFR ( Amer) Est GFR (Non-Af Amer) Random Glucose Calcium Total Bilirubin AST ALT Alkaline Phosphatase Total Protein Albumin Globulin Albumin/Globulin Ratio Lipase Urine Color Straw Urine Clarity Clear Urine pH 7.0 Ur Specific [place] 1.004 Urine Protein Negative Urine Glucose (UA) Normal Urine Ketones Negative Urine Blood Negative Urine Nitrate Negative Urine Bilirubin Negative Urine Urobilinogen Normal Ur Leukocyte Esterase Neg Urine WBC (Auto) < 1 Ur Squamous Epith Cells < 1 Assessment & Plan - Assessment and Plan (Free Text) Assessment: 42 Y M w/ PMHx of esophageal varices, liver cirrhosis, gallstones, alcohol abuse , multi drug use, noncompliance, presents to ED from clinic for abdominal swelling 1) Abdominal distention, likley 2/2 ascites - Admit to General Medical Floor - IR consult for paracentesis on 01/14 - ascites fluid ordered - Vitamin K 10mg IV 2/2 initial INR 1.8 -> F/u AM INR - Alb: 2.4 -> Albumin 12.5 mg X 2 Meds: - Lasix 20mg IV BID - Aldactone 100 mg PO daily - ascites fluid ordered 2) Hx Liver Cirrhosis 2/2 to hx of alcohol abuse - MELD score: 19 -> 6% mortality in 3 months - Ceftriaxone 1 gm IV 1x/day for empiric coverage of possible(less likely) SBP - Will provide GI referal to [facility] upon discharge - Folic Acid 1 mg PO 1x/day - Thiamine 100 mg PO 1x/day - Multivitamin 3) Hx Chronic Cholecystitis - Pt does not appear in any acute distress - F/u vitals & AM labs 4) Hx of Esophageal variceal bleeding - pt presnts w/ no symptoms - continue to monitor 5) Prophylaxis DVT prophylasis: Contraindicated 2/2 possible paracentesis tomorrow & previous GI bleed Heart Healthy Diet <Lashell Chino V - Last Filed: 01/17/18 14:17> Results - Vital Signs Recent Vital Signs: Last Vital Signs Temp 98.5 F 01/14/18 16:53 Pulse 76 01/14/18 16:53 Resp 20 01/14/18 16:53 BP 104/62 01/14/18 16:53 Pulse Ox 99 01/14/18 16:53 - Labs Result Diagrams: 01/14/18 07:06 01/14/18 07:06 Labs: Laboratory Results - last 24 hr 01/14/18 01/14/18 01/14/18 10:02 10:02 10:02 Peritoneal Tot Protein <3.0 Peritoneal LDH 37 Peritoneal Glucose 101 Peritoneal Lipase 01/14/18 10:02 Peritoneal Tot Protein Peritoneal LDH Peritoneal Glucose Peritoneal Lipase 127.0 H Attending/Attestation - Attestation I have personally seen and examined this patient.: Yes I have fully participated in the care of the patient.: Yes I have reviewed all pertinent clinical information: Yes Notes (Text): This is a late computer entry for 01/13/2018. Patient seen in [facility] in [facility]. Patient is a 40-year-old very pleasant gentleman with a history of known liver cirrhosis stemming from long- standing alcohol abuse, ascites from liver cirrhosis and a recent hospitalization where in he needed to receive banding for an upper GI bleed. Patient came to the clinic today to establish care following recent hospitalization was noted to be very short of breath had abdominal distention for a possible paracentesis. Case discussed with patient's new PMD Dr. Vega. Patient originally coming to the clinic to see a referral to GI. There is presently no GI associated with the clinic at this time. Patient upon hospitalization will receive referral to [facility] or their liver service for further follow-up as there is no service here at this hospital. Patient notes he has been compliant on his medications but has not been on fluid restriction. I did indicate to him in light of the resources he needs taking less water was diuresing him would be very difficult. We'll place an order for interventional radiology for paracentesis, we'll plate an fluid studies to rule out SBP though I have low suspicion for, and we will resume medications. Patient will should receive a dose of vitamin K we will check INR tomorrow. Assessment and plan 1) Abdominal distention, likely 2/2 ascites secondary to liver cirrhosis Assessment/plan * Admit to General Medical Floor * IR consult for paracentesis on 01/14 * ascites fluid ordered * Vitamin K 10mg IV 2/2 initial INR 1.8 -> F/u AM INR * Alb: 2.4 -> Albumin 12.5 mg X 2 Meds: * Lasix 20mg IV BID * Aldactone 100 mg PO daily * ascites fluid ordered for consideration of SBP * MELD score: 19 -> 6% mortality in 3 months * Ceftriaxone 1 gm IV 1x/day for empiric coverage of possible(less likely) SBP * Will provide GI referal to [facility] upon discharge * Folic Acid 1 mg PO 1x/day * Thiamine 100 mg PO 1x/day * Multivitamin tab by mouth once a day 3) Hx Chronic Cholecystitis * Pt does not appear in any acute distress. Negative He sign. * F/u vitals & AM labs 4) Hx of Esophageal variceal bleeding * pt presnts w/ no symptoms * continue to monitor * No NSAIDs, no chemical anticoagulation 5) Prophylaxis * DVT prophylasis: Contraindicated 2/2 possible paracentesis tomorrow & previous GI bleed * Heart Healthy Diet * Nothing by mouth after midnight for IR procedure paracentesis
[2018-01-13] MEDS ORDERED: Phytonadione 10 mg/ml Inj (Adult) IV STA (18:34)
[2018-01-13] MEDS ORDERED: Albumin Human 25% (12.5 gm/50 ml) IV ONE ×2 (18:48→18:49)
[2018-01-13] MEDS: Multiple Vitamins Tab PO SCH (21:42)
[2018-01-14 01:24] VITALS: RESP 20
[2018-01-14 07:27] LABS: BASO # 0.1 K/uL (0.0-0.2); HEMOGLOBIN 7.4 g/dL (12.0-18.0); MEAN PLATELET VOLUME 8.5 fL (7.2-11.7)
--- NOTE | 2018-01-14 07:31 | CP.PCM.PN ---
Objective - Vital Signs/Intake and Output Vital Signs (last 24 hours): Temp Pulse Resp BP Pulse Ox 98.4 F 79 20 100/51 L 96 01/14/18 00:32 01/14/18 00:32 01/14/18 00:32 01/14/18 00:32 01/14/18 00:32 Intake and Output: 01/14/18 01/14/18 06:59 18:59 Intake Total 0 Balance 0 - Medications Medications: Current Medications Folic Acid (Folic Acid) 1 mg PO DAILY [facility] Last Admin: 01/13/18 21:42 Dose: 1 mg Furosemide (Lasix) 20 mg IVP BID [facility] Last Admin: 01/13/18 22:00 Dose: Not Given Ceftriaxone Sodium 1 gm/ (Sodium Chloride) 100 mls @ 100 mls/hr IVPB DAILY [facility] PRN Reason: Protocol Lactulose (Enulose) 20 gm PO DAILY [facility] Multivitamins (Hexavitamin) 1 tab PO DAILY [facility] Last Admin: 01/13/18 21:42 Dose: 1 tab Pantoprazole Sodium (Protonix Ec Tab) 40 mg PO DAILY [facility] Propranolol HCl (Inderal) 20 mg PO DAILY [facility] Last Admin: 01/13/18 21:04 Dose: Not Given Spironolactone (Aldactone) 100 mg PO DAILY [facility] Thiamine HCl (Vitamin B1 Tab) 100 mg PO DAILY [facility] Last Admin: 01/13/18 21:42 Dose: 100 mg - Labs Labs: 01/13/18 16:02 01/13/18 16:02 PT 20.0 SECONDS (9.7-12.2) H 01/13/18 16:02 INR 1.8 01/13/18 16:02 APTT 40 SECONDS (21-34) H 01/13/18 16:02
[2018-01-14 07:37] LABS: BASO % 1.5 % (0.0-2.0); EOS # 0.2 K/uL (0.0-0.7); EOS % 4.2 % (0.0-4.0); INR 2.1; LYMPH # 1.3 K/uL (1.0-4.3); LYMPH % 36.8 % (20.0-40.0); MEAN CORPUSCULAR HEMOGLOBIN 29.1 pg (27.0-31.0); MEAN CORPUSCULAR HGB CONC 33.5 g/dL (33.0-37.0); MONO # 0.5 K/uL (0.0-0.8); MONO % 13.1 % (0.0-10.0); NEUT # 1.6 K/uL (1.8-7.0); NEUT % 44.4 % (50.0-75.0); PROTHROMBIN TIME 22.6 SECONDS (9.7-12.2); RBC 2.55 Mil/uL (4.40-5.90); RED CELL DISTRIBUTION WIDTH 18.3 % (11.5-14.5); WHITE BLOOD COUNT 3.6 K/uL (4.8-10.8)
[2018-01-14 07:41] LABS: MEAN CELL VOLUME 88.5 fL (80.0-94.0)
[2018-01-14 07:42] LABS: NRBC % 0.2 % (0.0-2.0)
[2018-01-14 08:03] LABS: ALB/GLOB RATIO 0.6 (1.0-2.1); ALT/SGPT 35 U/L (21-72); AST/SGOT 67 U/L (17-59); BLOOD UREA NITROGEN 8 mg/dL (9-20); CALCIUM 7.7 mg/dl (8.6-10.4); GFR NON-AFRICAN AMERICAN > 60
--- NOTE | 2018-01-14 09:31 | PCM.SURG1 ---
Surgeon's Initial Post Op Note - Surgeon's Notes Surgeon: London Kaufman MD [employer] Laboratory Assistant: NONE Type of Anesthesia: Local Pre-Operative Diagnosis: Ascites Operative Findings: US showed a moderate amount of ascites Post-Operative Diagnosis: Ascites Operation Performed: US guided paracentesis Specimen/Specimens Removed: 5 liters of straw colored fluid Estimated Blood Loss: EBL {In ML}: 0 Blood Products Given: N/A Drains Used: No Drains Post-Op Condition: Fair Date of Surgery/Procedure: 01/14/18 Time of Surgery/Procedure: 09:25
[2018-01-14 10:05] LABS: BODY FLUID TYPE PERITONEAL
[2018-01-14] MEDS ORDERED: Albumin Human 25% (12.5 gm/50 ml) IV ONE ×5 (10:06→11:00)
[2018-01-14] MEDS: Multiple Vitamins Tab PO SCH (10:33)
[2018-01-14] MEDS ORDERED: Saccharomyces Boulardi 250 mg Cap PO SCH (11:00)
[2018-01-14] MEDS ORDERED: Pantoprazole 40 mg EC Tab PO SCH (11:00)
[2018-01-14 11:08] LABS: BF GROSS APPEARANCE CLEAR (CLEAR)
[2018-01-14 11:10] LABS: BODY FLUID TOTAL COUNT 100 (0-0)
[2018-01-14 11:11] LABS: BODY FLUID MONO/MACROPHAGE 4 % (0-0)
--- NOTE | 2018-01-14 13:23 | CP.PCM.DIS ---
<Juan Pablo Mosley M - Last Filed: 01/14/18 14:27> Provider - Provider Date of Admission: 01/13/18 17:24 Attending physician: Lashell Chino DO Primary care physician: Dr. Vega (Clinic) Consults: Dr. rEic Kaufman (IR) Time Spent in preparation of Discharge (in minutes): 45 Diagnosis - Discharge Diagnosis (1) Ascites Status: Acute Comment: paracentesis, 5L removed, Albumin replenished (2) Alcohol abuse Status: Acute Comment: prior history, folic acid, thiamine provided (3) Cirrhosis Status: Acute Comment: continued previous medications: Lasix, aldactone, pantoprazole, propanolol, lactulose Hospital Course - Lab Results Lab Results: Most Recent Lab Values WBC 3.6 K/uL (4.8-10.8) L 01/14/18 07:06 RBC 2.55 Mil/uL (4.40-5.90) L 01/14/18 07:06 Hgb 7.4 g/dL (12.0-18.0) L 01/14/18 07:06 Hct 22.2 % (35.0-51.0) L 01/14/18 07:06 MCV 88.5 fL (80.0-94.0) 01/14/18 07:06 MCH 29.1 pg (27.0-31.0) 01/14/18 07:06 MCHC 33.5 g/dL (33.0-37.0) 01/14/18 07:06 RDW 18.3 % (11.5-14.5) H 01/14/18 07:06 Plt Count 83 K/uL (130-400) L D 01/14/18 07:06 MPV 8.5 fL (7.2-11.7) 01/14/18 07:06 Neut % (Auto) 44.4 % (50.0-75.0) L 01/14/18 07:06 Lymph % (Auto) 36.8 % (20.0-40.0) 01/14/18 07:06 [place]bour % (Auto) 13.1 % (0.0-10.0) H 01/14/18 07:06 Eos % (Auto) 4.2 % (0.0-4.0) H 01/14/18 07:06 Baso % (Auto) 1.5 % (0.0-2.0) 01/14/18 07:06 Neut # (Auto) 1.6 K/uL (1.8-7.0) L 01/14/18 07:06 Lymph # (Auto) 1.3 K/uL (1.0-4.3) 01/14/18 07:06 Barbour # (Auto) 0.5 K/uL (0.0-0.8) 01/14/18 07:06 Eos # (Auto) 0.2 K/uL (0.0-0.7) 01/14/18 07:06 Baso # (Auto) 0.1 K/uL (0.0-0.2) 01/14/18 07:06 Differential Comment 01/14/18 07:06 PT 22.6 SECONDS (9.7-12.2) H 01/14/18 07:06 INR 2.1 01/14/18 07:06 APTT 40 SECONDS (21-34) H 01/13/18 16:02 Sodium 136 mmol/L (132-148) 01/14/18 07:06 Potassium 4.1 mmol/L (3.6-5.2) 01/14/18 07:06 Chloride 107 mmol/L (98-107) 01/14/18 07:06 Carbon Dioxide 25 mmol/L (22-30) 01/14/18 07:06 Anion Gap 9 (10-20) L 01/14/18 07:06 BUN 8 mg/dL (9-20) L 01/14/18 07:06 Creatinine 0.8 mg/dL (0.8-1.5) 01/14/18 07:06 Est GFR ( Amer) > 60 01/14/18 07:06 Est GFR (Non-Af Amer) > 60 01/14/18 07:06 Random Glucose 89 mg/dL (75-110) 01/14/18 07:06 Calcium 7.7 mg/dl (8.6-10.4) L 01/14/18 07:06 Phosphorus 4.1 mg/dL (2.5-4.5) 01/14/18 07:06 Magnesium 1.8 mg/dL (1.6-2.3) 01/14/18 07:06 Total Bilirubin 2.4 mg/dL (0.2-1.3) H 01/14/18 07:06 AST 67 U/L (17-59) H 01/14/18 07:06 ALT 35 U/L (21-72) 01/14/18 07:06 Alkaline Phosphatase 79 U/L (38-126) 01/14/18 07:06 Total Protein 5.3 g/dL (6.3-8.3) L 01/14/18 07:06 Albumin 2.0 g/dL (3.5-5.0) L 01/14/18 07:06 Globulin 3.3 gm/dL (2.2-3.9) 01/14/18 07:06 Albumin/Globulin Ratio 0.6 (1.0-2.1) L 01/14/18 07:06 Lipase 596 U/L (23-300) H 01/13/18 20:00 Urine Color Straw (YELLOW) 01/13/18 16:23 Urine Clarity Clear (Clear) 01/13/18 16:23 Urine pH 7.0 (5.0-8.0) 01/13/18 16:23 Ur Specific [place] 1.004 (1.003-1.030) 01/13/18 16:23 Urine Protein Negative mg/dL (NEGATIVE) 01/13/18 16:23 Urine Glucose (UA) Normal mg/dL (Normal) 01/13/18 16:23 Urine Ketones Negative mg/dL (NEGATIVE) 01/13/18 16:23 Urine Blood Negative (NEGATIVE) 01/13/18 16:23 Urine Nitrate Negative (NEGATIVE) 01/13/18 16:23 Urine Bilirubin Negative (NEGATIVE) 01/13/18 16:23 Urine Urobilinogen Normal mg/dL (0.2-1.0) 01/13/18 16:23 Ur Leukocyte Esterase Neg Wendie/uL (Negative) 01/13/18 16:23 Urine WBC (Auto) < 1 /hpf (0-5) 01/13/18 16:23 Ur Squamous Epith Cells < 1 /hpf (0-5) 01/13/18 16:23 Fluid Source Peritoneal 01/14/18 10:02 Fluid Appearance Clear (CLEAR) 01/14/18 10:02 Fluid WBC 63.0 /mm3 (0.0-300.0) 01/14/18 10:02 Fluid RBC 40.0 /mm3 (0.0-0.0) H 01/14/18 10:02 Fluid Tot Cell Count 100 (0-0) H 01/14/18 10:02 Fluid Neutrophils 11.0 % (0-0) H 01/14/18 10:02 Fluid Lymphocytes 83.0 % (0-0) H 01/14/18 10:02 Fld Monocyte/Macrophag 4 % (0-0) H 01/14/18 10:02 Fluid Comment 01/14/18 10:02 - Hospital Course Hospital Course: 42 Y M w/ PMHx of esophageal varices, liver cirrhosis, gallstones, alcohol abuse , multi drug use, noncompliance, presents to ED from clinic for abdominal swelling. Patient states he was recently discharged (01/07) for esophageal varices / upper GI bleed and has been noticing that his abdomen has been increasing in size since discharge. He states abdomen is not painful, but simply discomforting from the abdominal swelling. Patient has nausea, but denies vomiting. Patient has normal bowel movements with no blood or discoloration. Additionally patient has shortness of breath with exertionn & and has lower extremity edema. Patient denies chest pain, constipation, headaches, vision changes, hearing loss, hematuria/ dysuria. Patient states he has quit drinking since last spring (2017). Patient had paracentesis 01/14 AM w/ 5L removed. Patient states he felt much better following procedure. Patient was given X5 albumin following paracentesis. Patient had medications refilled from clinic prior to arrival. Patient given prescription for referral to hepatology. Above is only a summary of patient course of treatment at this admission. The following instructions were provided to the patient upon discharge. 1) Patient is stable for discharge per Dr. Chino following his 5th dose of albumin. 2) Patient should continue to take his home medications that were filled in the clinic: Protonix 40 mg, 1 tablet by mouth 1 time a day (8 AM) Spiranolactone 100 mg, 1 tablet by mouth 1 time a day (8 AM) Lactulose 20 gm, 1 tablet by mouth 1 time a day (8 AM) Furosemide 40 mg, 1 tablet by mouth 1 time a day (2 PM) Propranolol 20 mg, 1 tablet by mouth 1 time a day (8 PM) 3) Patient should follow up at the [facility] The address of the clinic is: [facility] [address] [place] [address] [address] [place] [address] Please call and make an appointment prior to going. Please call [phone] 4) Please follow up at the [facility] in 3 months for follow up & medication refills. [facility] Floor B of [facility] ([phone]) [address] [place], [place] Please call to make an appointment prior to arriving. 5) Enjoy your holiday in celebrating [place]. Most places on [facility] in [place] will be able to provide the sweets that you are looking for. 6) If symptoms persist or worsen, please return to the nearest emergency facility. 6) Take care. Discharge Exam - Head Exam Head Exam: ATRAUMATIC, NORMAL INSPECTION, NORMOCEPHALIC - Eye Exam Eye Exam: EOMI, Normal appearance Pupil Exam: NORMAL ACCOMODATION - ENT Exam ENT Exam: Mucous Membranes Moist - Respiratory Exam Respiratory Exam: NORMAL BREATHING PATTERN. absent: Rales, Rhonchi, Wheezes - Cardiovascular Exam Cardiovascular Exam: +S1, +S2. absent: Irregular Rhythm, Systolic Murmur - GI/Abdominal Exam GI & Abdominal Exam: Normal Bowel Sounds. absent: Firm, Guarding, Hernia Additional comments: distended - improved following paracentesis, no tenderness to palpation, + typanic sounds - improved incision site on R quadrant - dressing, clean, dry, intact - Extremities Exam Extremities exam: pedal edema Additional comments: 2+ pedal edema - chronic - Neurological Exam Neurological exam: Alert, Oriented x3 - Psychiatric Exam Psychiatric exam: Normal Affect, Normal Mood - Skin Skin Exam: Dry, Intact, Normal Color, Warm Discharge Plan - Follow Up Plan Condition: FAIR Disposition: HOME/ ROUTINE Instructions: Heart Healthy Diet, Cirrhosis (DC), Fluid in the Belly (Ascites) (DC), Abdominal Paracentesis (DC) Additional Instructions: 1) Patient is stable for discharge per Dr. Chino following his 5th dose of albumin. 2) Patient should continue to take his home medications that were filled in the clinic: Protonix 40 mg, 1 tablet by mouth 1 time a day (8 AM) Spiranolactone 100 mg, 1 tablet by mouth 1 time a day (8 AM) Lactulose 20 gm, 1 tablet by mouth 1 time a day (8 AM) Furosemide 40 mg, 1 tablet by mouth 1 time a day (2 PM) Propranolol 20 mg, 1 tablet by mouth 1 time a day (8 PM) 3) Patient should follow up at the [facility] The address of the clinic is: [facility] [address] [place] [address] [address] [place] [address] Please call and make an appointment prior to going. Please call [phone] 4) Please follow up at the [facility] in 3 months for follow up & medication refills. [facility] Floor [address] of [facility] ([phone]) [address] [place], [place] Please call to make an appointment prior to arriving. 5) Enjoy your holiday in celebrating [employer] [place]. Most places on [facility] in [place] will be able to provide the sweets that you are looking for. 6) If symptoms persist or worsen, please return to the nearest emergency facility. 6) Take care. Referrals: [facility] at [facility] [Outside] <Lashell Chino V - Last Filed: 01/17/18 14:23> Provider - Provider Date of Admission: 01/13/18 17:24 Attending physician: Lashell Chino, DO Hospital Course - Lab Results Lab Results: Micro Results 01/14/18 10:02 Ascitic Fluid Gram Stain - Final 01/14/18 10:02 Ascitic Fluid Body Fluid Culture - Preliminary NO GROWTH AFTER 2 DAYS 01/14/18 10:02 Abdominal Fluid Anaerobic Culture - Final NO ANAEROBES ISOLATED. Most Recent Lab Values WBC 3.6 K/uL (4.8-10.8) L 01/14/18 07:06 RBC 2.55 Mil/uL (4.40-5.90) L 01/14/18 07:06 Hgb 7.4 g/dL (12.0-18.0) L 01/14/18 07:06 Hct 22.2 % (35.0-51.0) L 01/14/18 07:06 MCV 88.5 fL (80.0-94.0) 01/14/18 07:06 MCH 29.1 pg (27.0-31.0) 01/14/18 07:06 MCHC 33.5 g/dL (33.0-37.0) 01/14/18 07:06 RDW 18.3 % (11.5-14.5) H 01/14/18 07:06 Plt Count 83 K/uL (130-400) L D 01/14/18 07:06 MPV 8.5 fL (7.2-11.7) 01/14/18 07:06 Neut % (Auto) 44.4 % (50.0-75.0) L 01/14/18 07:06 Lymph % (Auto) 36.8 % (20.0-40.0) 01/14/18 07:06 Barbour % (Auto) 13.1 % (0.0-10.0) H 01/14/18 07:06 Eos % (Auto) 4.2 % (0.0-4.0) H 01/14/18 07:06 Baso % (Auto) 1.5 % (0.0-2.0) 01/14/18 07:06 Neut # (Auto) 1.6 K/uL (1.8-7.0) L 01/14/18 07:06 Lymph # (Auto) 1.3 K/uL (1.0-4.3) 01/14/18 07:06 [place]bour # (Auto) 0.5 K/uL (0.0-0.8) 01/14/18 07:06 Eos # (Auto) 0.2 K/uL (0.0-0.7) 01/14/18 07:06 Baso # (Auto) 0.1 K/uL (0.0-0.2) 01/14/18 07:06 Differential Comment 01/14/18 07:06 PT 22.6 SECONDS (9.7-12.2) H 01/14/18 07:06 INR 2.1 01/14/18 07:06 APTT 40 SECONDS (21-34) H 01/13/18 16:02 Sodium 136 mmol/L (132-148) 01/14/18 07:06 Potassium 4.1 mmol/L (3.6-5.2) 01/14/18 07:06 Chloride 107 mmol/L (98-107) 01/14/18 07:06 Carbon Dioxide 25 mmol/L (22-30) 01/14/18 07:06 Anion Gap 9 (10-20) L 01/14/18 07:06 BUN 8 mg/dL (9-20) L 01/14/18 07:06 Creatinine 0.8 mg/dL (0.8-1.5) 01/14/18 07:06 Est GFR ( Amer) > 60 01/14/18 07:06 Est GFR (Non-Af Amer) > 60 01/14/18 07:06 Random Glucose 89 mg/dL (75-110) 01/14/18 07:06 Calcium 7.7 mg/dl (8.6-10.4) L 01/14/18 07:06 Phosphorus 4.1 mg/dL (2.5-4.5) 01/14/18 07:06 Magnesium 1.8 mg/dL (1.6-2.3) 01/14/18 07:06 Total Bilirubin 2.4 mg/dL (0.2-1.3) H 01/14/18 07:06 AST 67 U/L (17-59) H 01/14/18 07:06 ALT 35 U/L (21-72) 01/14/18 07:06 Alkaline Phosphatase 79 U/L (38-126) 01/14/18 07:06 Total Protein 5.3 g/dL (6.3-8.3) L 01/14/18 07:06 Albumin 2.0 g/dL (3.5-5.0) L 01/14/18 07:06 Globulin 3.3 gm/dL (2.2-3.9) 01/14/18 07:06 Albumin/Globulin Ratio 0.6 (1.0-2.1) L 01/14/18 07:06 Lipase 596 U/L (23-300) H 01/13/18 20:00 Urine Color Straw (YELLOW) 01/13/18 16:23 Urine Clarity Clear (Clear) 01/13/18 16:23 Urine pH 7.0 (5.0-8.0) 01/13/18 16:23 Ur Specific [place] 1.004 (1.003-1.030) 01/13/18 16:23 Urine Protein Negative mg/dL (NEGATIVE) 01/13/18 16:23 Urine Glucose (UA) Normal mg/dL (Normal) 01/13/18 16:23 Urine Ketones Negative mg/dL (NEGATIVE) 01/13/18 16:23 Urine Blood Negative (NEGATIVE) 01/13/18 16:23 Urine Nitrate Negative (NEGATIVE) 01/13/18 16:23 Urine Bilirubin Negative (NEGATIVE) 01/13/18 16:23 Urine Urobilinogen Normal mg/dL (0.2-1.0) 01/13/18 16:23 Ur Leukocyte Esterase Neg Wendie/uL (Negative) 01/13/18 16:23 Urine WBC (Auto) < 1 /hpf (0-5) 01/13/18 16:23 Ur Squamous Epith Cells < 1 /hpf (0-5) 01/13/18 16:23 Fluid Source Peritoneal 01/14/18 10:02 Fluid Appearance Clear (CLEAR) 01/14/18 10:02 Fluid WBC 63.0 /mm3 (0.0-300.0) 01/14/18 10:02 Fluid RBC 40.0 /mm3 (0.0-0.0) H 01/14/18 10:02 Fluid Tot Cell Count 100 (0-0) H 01/14/18 10:02 Fluid Neutrophils 11.0 % (0-0) H 01/14/18 10:02 Fluid Lymphocytes 83.0 % (0-0) H 01/14/18 10:02 Fld Monocyte/Macrophag 4 % (0-0) H 01/14/18 10:02 Fluid Comment 01/14/18 10:02 Peritoneal Tot Protein <3.0 g/dL 01/14/18 10:02 Peritoneal LDH 37 U/L (<63) 01/14/18 10:02 Peritoneal Glucose 101 mg/dL 01/14/18 10:02 Peritoneal Lipase 127.0 U/L (<10) H 01/14/18 10:02 Attending/Attestation - Attestation I have personally seen and examined this patient.: Yes I have fully participated in the care of the patient.: Yes I have reviewed all pertinent clinical information, including history, physical exam and plan: Yes Notes (Text): This is a late computer entry for 01/14/2018 Patient seen, examined, case discussed with medical secretary receptionist. Patient underwent IR guided paracentesis this morning. Patient had 5 L of ascitic fluid removed. Fluid studies do not show SBP. Patient of replace with albumin 12.55 to minimize blood pressure changes. Patient is medically stable for discharge today. Patient had medications refilled at his clinic appointment. Patient to continue medications upon discharge. We have provided patient referral to the hepatology service at [facility] to initiate further follow-up given his liver condition as well as that he will need follow-up for variceal banding. This is a summary of patient's hospitalization please refer to EMR for full detail record thank you Discharge diagnosis 1) Abdominal distention, likely 2/2 ascites secondary to liver cirrhosis--> resolved Assessment/plan * Admit to General Medical Floor * completed paracentesis on 01/14 with IR following vitamin K administration the day before * Fluid studies do not to show SBP * to resume home medications on discharge * To establish care at [facility] for liver specialty since that it is not available at this hospital: Referral provided * Patient is well aware to not drink alcohol.
[2018-01-14 16:53] VITALS: BP 104/62; PULSE 76; TEMP 98.5; O2SAT 99
--- NOTE | 2018-01-17 10:39 | US ---
Date of Procedure: 01/14/2018 PROCEDURE: Ultrasound-guided paracentesis, CPT 09682 Medications: 7 cc 1% Lidocaine HISTORY: Ascites, abdominal pain TECHNIQUE: Following informed consent , the patient was placed supine on the stretcher and the site was marked. A limited abdominal ultrasound was performed that showed a large amount of intra-abdominal fluid. Procedural time out was called and the Pt's abdomen was marked and prepped and draped in the usual sterile fashion. Ultrasound-guided large volume paracentesis performed. A total of 5 liters of straw colored fluid was removed without complication. IMPRESSION: Ultrasound-guided large volume paracentesis.
== END 2018-01-14 17:56 | disposition home or self-care (01) | DRG 200 ==
LOC: C.ER 15:01 → C.9E 17:24 → C.3T 18:07
PROVIDERS: ADMIT Hospitalist; ATTEND Hospitalist
PROC: 0W9G3ZX Drainage of Peritoneal Cavity, Percutaneous Approach, Diagnostic (ICD-10-PCS; principal; 2018-01-14)
DX: K70.31 Alcoholic cirrhosis of liver with ascites (principal); I85.10 Secondary esophageal varices without bleeding; Z66 Do not resuscitate; Z91.19 Patient's noncompliance with other medical treatment and regimen

== ENCOUNTER 2018-02-07 23:23 | Emergency (ER) | payer MEDICAID ==
[2018-02-07 23:44] VITALS: BP 100/60; PULSE 70; RESP 16; TEMP 99.2; O2SAT 96
[2018-02-07] MEDS ORDERED: Amoxicillin-Clav 875-125 mg Tab PO STA (23:58)
--- NOTE | 2018-02-08 00:01 | C.PDOC ---
History Of Present Illness 42 yo male comes in for evaluation of left earache for past 2 days. Pt reports, localized, sharp/throbbing gradually worsen for past 2 days. Otherwise, denies high fever, headache, dizziness, vertigo, tinnitus, ear discharge, sore throat, drooling, cough, CP, dyspnea, SOB, wheezing, abd. pain, N/V, denies known trauma or injury to Left ear. Ambulate to Ed for evaluation, appears in pain. Time Seen by Provider: 02/07/18 23:46 Chief Complaint (Nursing): ENT Problem History Per: Patient Past Medical History Reviewed: Historical Data, Nursing Documentation, Vital Signs Vital Signs: Last Vital Signs Temp 99.2 F 02/07/18 23:41 Pulse 70 02/07/18 23:41 Resp 16 02/07/18 23:41 BP 100/60 02/07/18 23:41 Pulse Ox 96 02/07/18 23:41 - Medical History PMH: Anemia, Gastritis, Gall Bladder Disease, Pneumonia Denies: HIV, Chronic Kidney Disease - [facility] Procedures (01/02/18) DRAINAGE OF PERITONEAL CAVITY, PERCUTANEOUS APPROACH, DIAGN (01/13/18) INSPECTION OF UPPER INTESTINAL TRACT, ENDO (12/11/17) INTRODUCTION OF OTHER THERAPEUTIC SUBSTANCE INTO UP GI, ENDO (01/02/18) TRANSFUSE NONAUT FROZEN PLASMA IN PERIPH VEIN, PERC (01/02/18) TRANSFUSE NONAUT RED BLOOD CELLS IN PERIPH VEIN, PERC (01/02/18) Family History: States: Unknown Family Hx - Social History Hx Alcohol Use: Yes (past) Hx Substance Use: Yes - Immunization History Hx Tetanus Toxoid Vaccination: No Hx Influenza Vaccination: Yes Hx Pneumococcal Vaccination: Yes Review Of Systems Except As Marked, All Systems Reviewed And Found Negative. Constitutional: Negative for: Fever, Chills Eyes: Negative for: Vision Change ENT: Positive for: Ear Pain. Negative for: Ear Discharge, Nose Discharge, Nose Congestion, Throat Pain, Throat Swelling Cardiovascular: Negative for: Chest Pain, Palpitations Respiratory: Negative for: Cough, Shortness of Breath, Wheezing Gastrointestinal: Negative for: Nausea, Vomiting, Abdominal Pain, Diarrhea Skin: Negative for: Rash Neurological: Negative for: Weakness, Numbness, Altered Mental Status, Headache, Dizziness Physical Exam - Physical Exam Appears: Well, Non-toxic, No Acute Distress Skin: Normal Color, Warm, Dry, No Rash Head: Normacephalic Eye(s): bilateral: PERRL Ear(s): Left: TM Erythema, TM Obscured By Wax, Right: Normal Nose: No Flaring, No Discharge Oral Mucosa: Moist, No Drooling Tongue: Normal Appearing Lips: Normal Appearing Teeth: Normal Dentition, No Tender To Palpation Gingiva: Normal Appearing Throat: No Erythema, No Drooling Neck: Trachea Midline, Supple Lymphatic: Adenopathy (mild left submandibular) Cardiovascular: Rhythm Regular Respiratory: No Decreased Breath Sounds, No Accessory Muscle Use, No Stridor, No Wheezing Extremity: Normal ROM, No Deformity, No Swelling Neurological/Psych: Oriented x3, Normal Speech ED Course And Treatment O2 Sat by Pulse Oximetry: 96 Pulse Ox Interpretation: Normal Progress Note: On re-eval, pt is afebrile, hemodynamicaly stable. Non-toxic. Tolerate Po well in Ed. ENT: (+) left OM, left partial ceruman obstruction. No mastoid tenderness. neck: Supple, (-) meningeal sign. Lungs: CTA B/L, BS equal B/L. Neurologicaly intact. Pt advised. Ref. to f/u with PMD, ENT in 2-3 days for re-eavl. return to ED if any worsening or new changes. Disposition Counseled Patient/Family Regarding: Diagnosis, Need For Followup, Rx Given - Disposition Referrals: John Clark MD [Staff Provider] - Disposition: HOME/ ROUTINE Disposition Time: 00:01 Condition: STABLE Additional Instructions: Keep left ear dry, avoid water exposure take medication as prescribed Follow up with ENT in 1-2 days for re-evaluation. return to ED if any worsening or new changes. Prescriptions: Amoxicillin/Clavulanate [Augmentin 875 MG-125 MG] 1 tab PO BID #14 tab Carbamide Peroxide [Debrox] 3 drop OT ONCE #1 bottle traMADol [Ultram] 50 mg PO TID #7 tab Instructions: Ear Infections (Otitis Media), Ear Wax Impaction - Clinical Impression Clinical Impression: Otitis media, Impacted cerumen
[2018-02-08] MEDS ORDERED: Amoxicillin-Clav 875-125 mg Tab PO ONE (00:05)
== END 2018-02-08 00:27 | disposition home or self-care (01) ==
LOC: C.ER 23:23
DX: H61.22 Impacted cerumen, left ear (principal); H66.92 Otitis media, unspecified, left ear; F17.210 Nicotine dependence, cigarettes, uncomplicated